=== PATIENT | female | born 1950 | race Hispanic/Latino ===

== ENCOUNTER 2018-08-09 15:30 | Inpatient (IN) | payer MEDICARE ==
[2018-08-09] MEDS ORDERED: IPRATROPIUM BROM 0.5MG/2.5ML ONE (15:46)
[2018-08-09] MEDS ORDERED: ALBUTEROL 2.5 MG/3 ML NEB SOL ONE (15:46)
[2018-08-09 16:44] LABS: Absolute Monocytes 0.6 K/uL (0.1-1.3); Absolute Neutrophil 4.2 K/uL (1.8-8.0); Basophils % 1.2 % (0-1.3); Hematocrit 33.5 % (36.0-45.0); Lymphocytes % 27.9 % (15.3-44.8); MCH 31.7 pg (27.0-35.0); MCV 89.7 fL (80-100); MPV 8.3 fL (7.6-11.3); Monocytes % 8.8 % (3.3-12.3); RBC Red Blood Cell Count 3.73 M/uL (3.86-4.86)
[2018-08-09] MEDS ORDERED: MAGNESIUM SULFATE 1 gm IVPB 1 GM/100 ML BAG IV ONE (16:50)
[2018-08-09 17:09] LABS: Protime INR 0.92
[2018-08-09 17:20] LABS: Magnesium 2.7 mg/dL (1.8-2.4); Potassium 3.6 mmol/L (3.5-5.1); Troponin (Emerg Dept Use Only) 0.1 ng/mL (0.0-0.045)
--- NOTE | 2018-08-09 17:45 | EDPHYS ---
Physician Documentation [facility] Name: Diya Hassan Age: 68 yrs Sex: Female : 1950 Arrival Date: 08/09/2018 Time: 15:31 Bed 2 Private MD: ED Physician Kin Cassidy HPI: 08/09 15:56 This 68 yrs old Female presents to ER via Ambulatory with complaints of kb Shortness Of Breath. 15:56 The patient has shortness of breath at rest. Onset: The symptoms/episode began/occurred kb last night. Duration: The symptoms are continuous, and are steadily getting worse. The patient's shortness of breath is aggravated by exertion, is alleviated by nothing. Associated signs and symptoms: Pertinent positives: non-productive cough, Pertinent negatives: chest pain, productive cough, fever. Severity of symptoms: At their worst the symptoms were moderate in the emergency department the symptoms are unchanged. The patient has not experienced similar symptoms in the past. The patient has not recently seen a physician. Historical: - Allergies: 15:47 NKA; ph - Home Meds: 16:39 carvedilol Oral [Active]; metformin 500 mg Oral tr24 1 tab twice a day [Active]; rv - PMHx: 15:47 Diabetes - NIDDM; Hypertension; ph - PSHx: 15:47 None; ph - Immunization history:: Adult Immunizations unknown. - Social history:: Smoking status: unknown. - Ebola Screening: : Patient negative for fever greater than or equal to 101.5 degrees Fahrenheit, and additional compatible Ebola Virus Disease symptoms Patient denies exposure to infectious person Patient denies travel to an Ebola-affected area in the 21 days before illness onset. ROS: 15:56 Constitutional: Negative for fever, chills, and weight loss, ENT: Negative for injury, kb pain, and discharge, Neck: Negative for injury, pain, and swelling, Cardiovascular: Negative for chest pain, palpitations, and edema, Abdomen/GI: Negative for abdominal pain, nausea, vomiting, diarrhea, and constipation, Back: Negative for injury and pain, : Negative for injury, bleeding, discharge, and swelling, MS/Extremity: Negative for injury and deformity, Skin: Negative for injury, rash, and discoloration, Neuro: Negative for headache, weakness, numbness, tingling, and seizure. 15:56 Respiratory: Positive for cough, shortness of breath, Negative for hemoptysis, orthopnea, pleurisy, wheezing. Exam: 15:56 Constitutional: This is a well developed, well nourished patient who is awake, alert, kb and in no acute distress. Head/Face: Normocephalic, atraumatic. ENT: Nares patent. No nasal discharge, no septal abnormalities noted. Tympanic membranes are normal and external auditory canals are clear. Oropharynx with no redness, swelling, or masses, exudates, or evidence of obstruction, uvula midline. Mucous membranes moist. Neck: Trachea midline, no thyromegaly or masses palpated, and no cervical lymphadenopathy. Supple, full range of motion without nuchal rigidity, or vertebral point tenderness. No Meningismus. Chest/axilla: Normal chest wall appearance and motion. Nontender with no deformity. No lesions are appreciated. Cardiovascular: Regular rate and rhythm with a normal S1 and S2. No gallops, murmurs, or rubs. Normal PMI, no JVD. No pulse deficits. Abdomen/GI: Soft, non-tender, with normal bowel sounds. No distension or tympany. No guarding or rebound. No evidence of tenderness throughout. Back: No spinal tenderness. No costovertebral tenderness. Full range of motion. Skin: Warm, dry with normal turgor. Normal color with no rashes, no lesions, and no evidence of cellulitis. MS/ Extremity: Pulses equal, no cyanosis. Neurovascular intact. Full, normal range of motion. Neuro: Awake and alert, GCS 15, oriented to person, place, time, and situation. Cranial nerves II-XII grossly intact. Motor strength 5/5 in all extremities. Sensory grossly intact. Cerebellar exam normal. Normal gait. 15:56 Respiratory: mild respiratory distress is noted, Respirations: labored breathing, that is mild, Breath sounds: decreased breath sounds, that are moderate, are located in both bases. 16:38 Respiratory: Breath sounds: decreased breath sounds, that are mild, are located in both kb bases, receiving neb treatment. Vital Signs: 15:46 BP 178 / 94; Pulse 55; Resp 26; Temp 97.7(O); Pulse Ox 88% on R/A; Weight 75.3 kg; Pain ph 0/10; 16:00 BP 171 / 78; Pulse 53; Resp 18; Pulse Ox 96% ; rv 16:30 BP 165 / 83; Pulse 61; Resp 23; Pulse Ox 97% ; rv 17:00 BP 172 / 79; Pulse 59; Resp 20; Pulse Ox 97% on 2 lpm NC; rv 17:30 BP 115 / 88; Pulse 59; Resp 22; Pulse Ox 95% on 2 lpm NC; rv 18:00 BP 152 / 76; Pulse 57; Resp 18; Pulse Ox 97% on 2 lpm NC; rv 19:13 BP 140 / 71; Pulse 60; Resp 21; Temp 98.8(O); Pulse Ox 95% on 2 lpm NC; lp1 MDM: 15:49 Patient medically screened. kb 15:56 Data reviewed: vital signs, nurses notes. Data interpreted: Pulse oximetry: on room air kb is 88 %. Interpretation: hypoxia. 17:38 Counseling: I had a detailed discussion with the patient and/or guardian regarding: the kb historical points, exam findings, and any diagnostic results supporting the discharge/admit diagnosis, lab results, radiology results, the need for further work-up and treatment in the hospital. Physician consultation: Mary Christian MD was contacted at 17:39, regarding admission, to the telemetry unit. patient's condition, and will see patient in ED, shortly. 08/09 15:52 Order name: Basic Metabolic Panel; Complete Time: 17:21 kb 08/09 15:52 Order name: CBC with Diff; Complete Time: 17:01 kb 08/09 15:52 Order name: Magnesium; Complete Time: 17:21 kb 08/09 15:52 Order name: NT PRO-BNP; Complete Time: 17:21 kb 08/09 15:52 Order name: PT-INR; Complete Time: 17:16 kb 08/09 15:52 Order name: Troponin (emerg Dept Use Only); Complete Time: 17:21 kb 08/09 15:52 Order name: XRAY Chest (1 view); Complete Time: 17:46 kb 08/09 15:52 Order name: Blood Culture Adult (2) kb 08/09 17:38 Order name: Procalcitonin; Complete Time: 18:43 kb 08/09 17:38 Order name: Lactate; Complete Time: 18:23 kb 08/09 17:43 Order name: Flu; Complete Time: 18:56 kb 08/09 15:52 Order name: EKG; Complete Time: 15:57 kb 08/09 15:52 Order name: Cardiac monitoring; Complete Time: 16:15 kb 08/09 15:52 Order name: EKG - Nurse/Tech; Complete Time: 16:16 kb 08/09 15:52 Order name: IV Saline Lock; Complete Time: 16:03 kb 08/09 15:52 Order name: Labs collected and sent; Complete Time: 16:03 kb 08/09 15:52 Order name: O2 Per Protocol; Complete Time: 16:04 kb 08/09 15:52 Order name: O2 Sat Monitoring; Complete Time: 16:04 kb Administered Medications: 16:00 Drug: DuoNeb (3:1) (2.5 mg - 0.5 mg) 3 ml Route: Nebulizer; rv 16:54 Follow up: Response: No adverse reaction rv 16:51 Drug: Magnesium Sulfate 1 grams Route: IVPB; Infused Over: 1 hrs; Site: left rv antecubital; 18:00 Drug: Lasix 40 mg Route: IVP; Site: right antecubital; rv 18:14 Drug: Zithromax 500 mg Route: IVPB; Infused Over: 1 hrs; Site: right antecubital; rv 19:18 Follow up: IV Status: Completed infusion; IV Intake: 250ml lp1 18:15 Drug: Rocephin - (cefTRIAXone) 1 grams Route: IVPB; Infused Over: 30 mins; Site: right rv antecubital; Disposition: 18:57 Co-signature as Attending Physician, Kin Cassidy MD available for consultation at ps1 all times . Disposition: 08/09/18 17:44 Hospitalization ordered by Mary Christian for Inpatient Admission. Preliminary diagnosis are Pneumonia, unspecified organism, Dyspnea - hypoxia, Fluid overload. - Bed requested for Telemetry/MedSurg (Inpatient). - Status is Inpatient Admission. lp1 - Condition is Fair. - Problem is new. - Symptoms have improved. UTI on Admission? No Signatures: Dispatcher [employer] EDYelena Cummins FNP-C FNP-Carlene Philippe Laura, RN RN lp1 Hui Barber RN RN Kin Cassidy MD MD [facility] Capo, Jax, RN RN rv Corrections: (The following items were deleted from the chart) 17:46 17:44 Hospitalization Ordered by Mary Christian MD for Inpatient Admission. Preliminary kb diagnosis is Pneumonia, unspecified organism; Dyspnea; Fluid overload. Bed requested for Telemetry/MedSurg (Inpatient). Status is Inpatient Admission. Condition is Fair. Problem is new. Symptoms have improved. UTI on Admission? No. kb 18:47 17:46 08/09/2018 17:44 Hospitalization Ordered by Mary Christian MD for Inpatient bd Admission. Preliminary diagnosis is Pneumonia, unspecified organism; Dyspnea - hypoxia; Fluid overload. Bed requested for Telemetry/MedSurg (Inpatient). Status is Inpatient Admission. Condition is Fair. Problem is new. Symptoms have improved. UTI on Admission? No. kb 20:21 18:47 08/09/2018 17:44 Hospitalization Ordered by Mary Christian MD for Inpatient lp1 Admission. Preliminary diagnosis is Pneumonia, unspecified organism; Dyspnea - hypoxia; Fluid overload. Bed requested for Telemetry/MedSurg (Inpatient). Status is Inpatient Admission. Condition is Fair. Problem is new. Symptoms have improved. UTI on Admission? No. bd
--- NOTE | 2018-08-09 17:45 | ER ---
Nurse's Notes [facility] Name: Diya Hassan Age: 68 yrs Sex: Female : 1950 Arrival Date: 08/09/2018 Time: 15:31 Bed 2 Private MD: Diagnosis: Pneumonia, unspecified organism;Dyspnea-hypoxia;Fluid overload Presentation: 08/09 15:44 Presenting complaint: Patient states: Reports SOB that began yesterday, also reports ph cough that began yesterday, denies fever or chest pain, Spo2 88% in triage, pt denies hx of COPD, taken to trauma 2 and placed on NC at 2L. Transition of care: patient was not received from another setting of care. Onset of symptoms was August 09, 2018. Risk Assessment: Do you want to hurt yourself or someone else? Patient reports no desire to harm self or others. Care prior to arrival: None. 15:44 Method Of Arrival: Ambulatory ph 15:44 Acuity: RJ 2 ph 16:05 Initial Sepsis Screen: Does the patient meet any 2 criteria? No. Patient's initial rv sepsis screen is negative. Does the patient have a suspected source of infection? No. Patient's initial sepsis screen is negative. Triage Assessment: 16:37 General: Appears in no apparent distress. comfortable, Behavior is calm, cooperative. rv Respiratory: Reports shortness of breath since LAST NIGHT Onset: The symptoms/episode began/occurred yesterday, the patient has moderate shortness of breath. Historical: - Allergies: 15:47 NKA; ph - Home Meds: 16:39 carvedilol Oral [Active]; metformin 500 mg Oral tr24 1 tab twice a day [Active]; rv - PMHx: 15:47 Diabetes - NIDDM; Hypertension; ph - PSHx: 15:47 None; ph - Immunization history:: Adult Immunizations unknown. - Social history:: Smoking status: unknown. - Ebola Screening: : Patient negative for fever greater than or equal to 101.5 degrees Fahrenheit, and additional compatible Ebola Virus Disease symptoms Patient denies exposure to infectious person Patient denies travel to an Ebola-affected area in the 21 days before illness onset. Screenin:54 Abuse screen: Denies threats or abuse. Denies injuries from another. Nutritional rv screening: No deficits noted. Tuberculosis screening: No symptoms or risk factors identified. Fall Risk None identified. Assessment: 15:52 General: Appears in no apparent distress. comfortable, Behavior is calm, cooperative. rv Pain: Denies pain. Neuro: Level of Consciousness is awake, alert, obeys commands, Oriented to person, place, time, situation. Cardiovascular: Capillary refill < 3 seconds Rhythm is. GI: No signs and/or symptoms were reported involving the gastrointestinal system. : No signs and/or symptoms were reported regarding the genitourinary system. EENT: No signs and/or symptoms were reported regarding the EENT system. Derm: Skin is intact. Musculoskeletal: No signs and/or symptoms reported regarding the musculoskeletal system. 16:04 Respiratory: Airway is patent Respiratory effort is labored, Breath sounds with wheezes rv bilaterally. 16:46 Reassessment: Patient appears in no apparent distress at this time. rv 19:17 Reassessment: Patient aware of admission. Neuro: Level of Consciousness is awake, lp1 alert, obeys commands. Respiratory: Respiratory effort is even, labored, Respiratory pattern is regular, Breath sounds with wheezes bilaterally. Derm: Skin is pink, warm \T\ dry. Vital Signs: 15:46 BP 178 / 94; Pulse 55; Resp 26; Temp 97.7(O); Pulse Ox 88% on R/A; Weight 75.3 kg; Pain ph 0/10; 16:00 BP 171 / 78; Pulse 53; Resp 18; Pulse Ox 96% ; rv 16:30 BP 165 / 83; Pulse 61; Resp 23; Pulse Ox 97% ; rv 17:00 BP 172 / 79; Pulse 59; Resp 20; Pulse Ox 97% on 2 lpm NC; rv 17:30 BP 115 / 88; Pulse 59; Resp 22; Pulse Ox 95% on 2 lpm NC; rv 18:00 BP 152 / 76; Pulse 57; Resp 18; Pulse Ox 97% on 2 lpm NC; rv 19:13 BP 140 / 71; Pulse 60; Resp 21; Temp 98.8(O); Pulse Ox 95% on 2 lpm NC; lp1 ED Course: 15:31 Patient arrived in ED. as 15:46 Triage completed. ph 15:47 Arm band placed on Patient placed in an exam room, on a stretcher, on oxygen, on ph monitoring coordinator, on pulse oximetry. 15:49 Yelena Wilkerson FNP-C is [facility]. kb 15:49 Kin Cassidy MD is Attending Physician. kb 15:54 Initial lab(s) drawn, by me, sent to lab. Inserted saline lock: 20 gauge in right rv antecubital area, using aseptic technique. Blood collected. 16:06 Patient has correct armband on for positive identification. Placed in gown. Bed in low rv position. Call light in reach. Side rails up X 1. Adult w/ patient. nuclear monitoring technician on. Pulse ox on. NIBP on. 16:12 EKG done, by radiation therapy technician. reviewed by Yelena MERCADO. sm3 16:43 XRAY Chest (1 view) In Process Unspecified. EDMS 17:44 Mary Christian MD is Hospitalizing Provider. kb 19:12 Basilia Rowley RN is Primary Nurse. lp1 19:17 No provider procedures requiring assistance completed. Patient admitted, IV remains in lp1 place. Administered Medications: 16:00 Drug: DuoNeb (3:1) (2.5 mg - 0.5 mg) 3 ml Route: Nebulizer; rv 16:54 Follow up: Response: No adverse reaction rv 16:51 Drug: Magnesium Sulfate 1 grams Route: IVPB; Infused Over: 1 hrs; Site: left rv antecubital; 18:00 Drug: Lasix 40 mg Route: IVP; Site: right antecubital; rv 18:14 Drug: Zithromax 500 mg Route: IVPB; Infused Over: 1 hrs; Site: right antecubital; rv 19:18 Follow up: IV Status: Completed infusion; IV Intake: 250ml lp1 18:15 Drug: Rocephin - (cefTRIAXone) 1 grams Route: IVPB; Infused Over: 30 mins; Site: right rv antecubital; Intake: 19:18 IV: 250ml; Total: 250ml. lp1 Outcome: 17:44 Decision to Hospitalize by Provider. kb 19:18 Condition: stable lp1 19:18 Instructed on the need for admit. 19:45 Admitted to Med/surg accompanied by nurse, via wheelchair, room 205, with oxygen, with lp1 chart, Report called to Sandrine Rod RN 20:21 Patient left the ED. lp1 Signatures: Dispatcher [employer] EDMS Yelena Wilkerson FNP-C FNP-Ckb Dafne Gonzales Laura, RN RN lp1 Hui Barebr RN RN Minerva Sinha 3 Jax Scanlon RN RN rv
--- NOTE | 2018-08-09 17:45 | RAD REPORT ---
EXAM DESCRIPTION: RAD - Chest Single View - 08/09/2018 5:34 pm CLINICAL HISTORY: Cough;Dyspnea Chest pain. COMPARISON: CHEST PA AND LAT 2 VIEW dated 04/09/2010; CHEST PA AND LAT 2 VIEW dated 01/02/2008; CHEST P A AND LAT 2 VIEW dated 02/26/2004 FINDINGS: Portable technique limits examination quality. Ill-defined opacity is present in the right base with small pleural effusion, most likely representin g pneumonia. The heart is mildly to moderately enlarged. No displaced fractures. IMPRESSION: Right lower lobe pneumonia.
[2018-08-09] MEDS ORDERED: FUROSEMIDE 40 MG/4 ML VIAL ONE (18:04)
[2018-08-09] MEDS ORDERED: AZITHROMYCIN 500 MG/250 ML BAG ONE (18:05)
[2018-08-09] MEDS ORDERED: CEFTRIAXONE/SWI 1gm 1 GM/10 ML SYR ONE (18:05)
[2018-08-09] MEDS ORDERED: ONDANSETRON 4 MG/2 ML VIAL IV PRN (18:13)
[2018-08-09] MEDS ORDERED: ENOXAPARIN 30 MG/0.3 ML SQ SCH (18:30)
[2018-08-09] MEDS ORDERED: CEFTRIAXONE/SWI 1gm 1 GM/10 ML SYR IVP SCH (21:00)
[2018-08-09] MEDS: IPRATROPIUM BROM 0.5MG/2.5ML NEB PRN (22:00)
[2018-08-09] MEDS: ALBUTEROL 2.5 MG/3 ML NEB SOL NEB PRN (22:00)
[2018-08-09] MEDS: INSULIN -REGULAR HUMAN 50 UNIT/0.5 ML ML SQ SCH (23:24)
[2018-08-09] MEDS: ENOXAPARIN 80 MG/0.8 ML SQ SCH (23:25)
[2018-08-10 00:21] LABS: Urine Appearance CLEAR; Urine Bilirubin NEGATIVE (NEG); Urine Blood 1+ (NEG); Urine Color YELLOW; Urine Glucose TRACE (NEG); Urine Protein 3+ (NEG); Urine Urobilinogen 0.2 mg/dL (0.2-1.0)
[2018-08-10 00:53] LABS: Urine Microscopic Reflex ORDER UMIC
[2018-08-10 01:08] LABS: Urine Bacteria <20 /HPF (<20); Urine Culture Reflex Order NOT NEEDED; Urine RBC <5 /HPF (NONE SEEN)
--- NOTE | 2018-08-10 04:24 | HP ---
Date of Admission: 08/09/2018 Primary Care Physician: Joaquín Watson D.O. Chief Complaint: Shortness of breath. Code Status: Full. History Of Present Illness: The patient is a 68-year-old female with past medical history of hyperte nsion, diabetes, comes in with shortness of breath since last night. The patient reports wak ing her up as she was found to be gasping for air. The patient does report some shortness of breath, some chills, subjective fever. No cough or congestion. Denies any ill contacts. The patient came into the ER for further evaluation. Upon arrival, white count was normal. The patient's creatinine was elevated at 1.8. Troponin was 0.1. The patient denies any recent long car drive or plane drive. The patient's symptoms are constant, moderate, progressively worsening. The chest x-ray showed rig ht lower lobe pneumonia. The patient was then given breathing treatment, Lasix, and antibiotics and referred for admission. The patient was hypoxic at 88% in the ER. When seen, she was awake, alert, oriented x3, in some mild respiratory distress. Past Medical History: Hypertension, diabetes, obesity. Past Surgical History: Cholecystectomy, cataract surgery on the left. Family History: Father had cancer. Mother had stroke. Medications: List reviewed. Allergies: NO KNOWN DRUG ALLERGIES. Review of Systems: An 11-point system reviewed, negative except as per HPI. Physical Examination: Vital Signs: Blood pressure 178/94, pulse 55, respirations 26, temperature 97.7, O2 88% on room air. General: Awake, alert, oriented x3. Some mild respiratory distress. Ill-appearing female. HEENT: Normocephalic, atraumatic. PERRLA. EOMI. Moist mucous membranes. Oropharynx is clear. Co njunctivae anicteric. Neck: Supple. No JVD. Trachea midline. CV: S1, S2. No murmurs. Peripheral pulses present. Respiratory: Decreased breath sounds at the right base well heard. No wheezing or crackles. The pa tient is tachypneic. Use of accessory muscles present. Gastrointestinal: Abdomen is soft, nontender, nondistended. Positive bowel sounds. No guarding or rigidity. Extremities: No clubbing, cyanosis, or edema. No calf tenderness. Neuro: Cranial nerves 2 through 12 are intact grossly. No focal neurological deficit. Speech is no rmal. Strength is symmetric in bilateral upper and lower extremities. Skin: No rashes. Normal skin turgor. Psych: Mood is okay. Affect is full. Insight and judgment are good. Laboratory Data: Sodium 142, potassium 3.6, chloride 111, CO2 21, BUN 30, creatinine 1.8, glucose 10 9, calcium 8.4, magnesium 2.7. Troponin 0.1. BNP 5561. Lactate and procalcitonin pending. INR 0.9 2. WBC is 7.3, H and H 11.8 and 33.5, platelets 243. Chest x-ray; right lower lobe pneumonia, small pleural effusion on the right. Assessment And Plan: A 68-year-old female with: 1.Acute respiratory distress with hypoxia. 2.Right lower lobe pneumonia. We will start on IV antibiotics and obtain blood cultures and sputum cultures. Check influenza screen. Of note, the patient has been on nitrofurantoin prophylactically by her OB for hysterectomy upcoming. White count is currently normal, but the patient does have clin ical symptoms. 3.Right small pleural effusion. The patient did receive Lasix. We will monitor I's and O's. 4.Obesity. 5.Diabetes mellitus type 2, non-insulin requiring with hyperglycemia. We will start on sliding scal e insulin and continue Accu-Cheks. 6.Essential hypertension, uncontrolled. Continue home medications. 7.Elevated troponin level, likely secondary to hypoxia. 8.Fkvcl-zn-[id number] kidney injury. We will continue with close monitoring. Avoid nephrotoxins and N SAIDs. We will give IV fluids with gentle IV fluid hydration. Plan: Admit the patient to Med-Surg, place as inpatient. Start on Lovenox. Obtain V/Q scan. Unabl e to do CT angio to rule out PE due to her elevated creatinine. Length of stay greater than 2 midnig hts. /MILLY Voice ID: [id number]
[2018-08-10 05:50] LABS: Absolute Lymphocytes (CBC) 1.4 K/uL (0.7-4.9); Absolute Monocytes 0.5 K/uL (0.1-1.3); Eosinophils % 2.4 % (0-4.4); Lymphocytes % 23.3 % (15.3-44.8); MCH 31.9 pg (27.0-35.0); MCV 89.7 fL (80-100); MPV 7.9 fL (7.6-11.3); Monocytes % 7.8 % (3.3-12.3); RBC Red Blood Cell Count 3.23 M/uL (3.86-4.86)
--- NOTE | 2018-08-10 06:05 | EKG ---
Test Date: 2018-08-09 Test Time: 15:44:24 Target Man: AUGUSTUS MEASUREMENT RESULTS: Intervals: Rate: 54 [place]: 134 QRSD: 88 QT: 470 QTc: 445 [place]: P: [place]: 134 QRS: 40 T: 9 INTERPRETIVE STATEMENTS: Sinus bradycardia Nonspecific ST and T wave abnormality Abnormal ECG Compared to ECG 11/30/2016 14:09:46 ST (T wave) deviation now present Left ventricular hypertrophy no longer present Early repolarization no longer present Myocardial infarct finding no longer present Electronically Signed On 08-10-18 06:04:02 [employer] by Hector Snow
[2018-08-10 06:07] LABS: Albumin 2.5 g/dL (3.4-5.0); Bilirubin Total 0.3 mg/dL (0.2-1.0); Potassium 3.2 mmol/L (3.5-5.1); Protein, Total 6.1 g/dL (6.4-8.2)
[2018-08-10] MEDS: INSULIN -REGULAR HUMAN 50 UNIT/0.5 ML ML SQ SCH ×4 (07:30→20:35)
[2018-08-10] MEDS: GLIMEPIRIDE 2 MG TABLET PO SCH (08:47)
[2018-08-10] MEDS: METOPROLOL TAR 50 MG TAB PO SCH ×2 (08:47→20:33)
[2018-08-10] MEDS: AMLODIPINE 10 MG TAB PO SCH (08:48)
[2018-08-10] MEDS: CEFTRIAXONE/SWI 1gm 1 GM/10 ML SYR IVP SCH ×2 (08:49→20:33)
[2018-08-10] MEDS: ENOXAPARIN 80 MG/0.8 ML SQ SCH (08:49)
--- NOTE | 2018-08-10 08:53 | RAD REPORT ---
EXAM DESCRIPTION: NM - Vent Perfusion VQ Scan - 08/10/2018 6:34 am CLINICAL HISTORY: SOB, hypoxia, r/out PE COMPARISON: Chest Single View dated 08/09/2018 TECHNIQUE: 18.9mCi Xe-133 gas inhaled and 7.5mCi Tc-MAA IV. Planar ventilation scan was performed in posterior projection after Xe-133 gas inhalation (wash-in, e quilibrium, and wash-out phases) followed by perfusion scan with Tc-MAA IV in multiple projections. Examination is correlated with recent chest radiograph. FINDINGS: Normal ventilation with appropriate wash-out and no significant air-trapping. No mismatched segmental perfusion defect. Linear obliquely oriented defect involving the right lung i s likely related to pleural fluid in the fissure. IMPRESSION: Low probability of acute pulmonary embolism.
[2018-08-10] MEDS: MEMANTINE HCL 28 MG PO SCH (08:57)
[2018-08-10 10:00] LABS: Arterial Blood Carboxyhemoglob 1.6 % (0-1.5); Blood O2 Saturation 94.1 % (92-98.5)
[2018-08-10] MEDS: AZITHROMYCIN IV 500 MG in NA CHLORIDE 0.9% 250 ML IVPB SCH (10:11)
[2018-08-10] MEDS ORDERED: FUROSEMIDE 40 MG/4 ML VIAL IV ONE (15:00)
[2018-08-10] MEDS ORDERED: POTASSIUM CL SA 10 MEQ TAB PO ONE (15:00)
[2018-08-10] MEDS: ENOXAPARIN 30 MG/0.3 ML SQ SCH (17:00)
[2018-08-10] MEDS: IPRATROPIUM BROM 0.5MG/2.5ML NEB PRN (17:15)
[2018-08-10] MEDS: ALBUTEROL 2.5 MG/3 ML NEB SOL NEB PRN (17:15)
[2018-08-10] MEDS: HYDRALAZINE HCL 20 MG/ML VIAL IV PRN (17:41)
--- NOTE | 2018-08-10 19:12 | PN ---
Date of Progress Note: 08/10/2018 Subjective: The patient is seen and examined. Chart reviewed, and case discussed with RN. The lala ent states she feels slightly better, however, still having some chills. No fevers overnight. The p atient is still requiring supplemental oxygen. Review of Systems: Negative except as above. Medications: List reviewed. Physical Examination: Vital Signs: Temperature 97.8, heart rate 54, blood pressure 164/69, respirations 18, O2 of 94% on 3 L via nasal cannula. General: Awake, alert, oriented x3. She is in mild distress. An elderly female, ill-appearing, obe se. CV: S1, S2. Regular rate and rhythm. No murmurs. Peripheral pulses present. Respiratory: Diminished breath sounds at the bases, right worse than left. No wheezing. Gastrointestinal: Abdomen is soft, nontender, nondistended. Positive bowel sounds. Extremities: No clubbing, cyanosis, or edema. Neurologic: Nonfocal. Laboratory Data: Sodium 142, potassium 3.2, chloride 111, CO2 of 22, BUN 28, creatinine 1.7, glucose 101, calcium 8.2. WBC 6.1, H and H 10.3 and 29, platelets 213, neutrophils 65%. ABG; pH 7.35, pCO2 of 34.7, pO2 of 69, bicarb 18. Influenza screen is negative. Blood cultures pending. Lung V/Q sca n shows low probability of acute pulmonary embolism. Assessment: A 68-year-old female with: 1.Acute respiratory distress with hypoxia, improving, likely secondary to pneumonia. 2.Right lower lobe pneumonia. Continue with IV antibiotics. Follow up on cultures. 3.Small right pleural effusion. Continue to monitor chest x-ray. The patient is still on supplemen alina oxygen at 3 L. We will give a dose of Lasix. 4.Obesity, BMI 32. 5.Diabetes mellitus type 2, non-insulin requiring, with hyperglycemia. We will continue sliding sca le insulin and Accu-Cheks. 6.Essential hypertension, not well controlled. We will add p.r.n. medications. Resume home dose as appropriate. 7.Elevated troponin level, secondary to hypoxia. No chest pain. 8.Unqgr-[id number]-mcdqbtk kidney injury stage 3. Creatinine is improving. We will continue to monitor. A void NSAIDs. 9.Gastrointestinal and deep venous thrombosis prophylaxis addressed. Plan: Continue antibiotics. Follow up on cultures. Likely discharge in the next 24 to 48 hours onc e clinically improved. We will repeat chest x-ray in a.mShiv DIAZ/MLILY Voice ID: [id number] Report ID: [id number]
[2018-08-10] MEDS: ATORVASTATIN 20 MG TAB PO SCH (20:34)
[2018-08-10] MEDS: ACETAMINOPHEN 500 MG TAB PO PRN (20:34)
[2018-08-11 06:07] LABS: Absolute Lymphocytes (CBC) 2.3 K/uL (0.7-4.9); Absolute Monocytes 0.5 K/uL (0.1-1.3); Absolute Neutrophil 3.5 K/uL (1.8-8.0); Basophils % 1.3 % (0-1.3); Eosinophils % 5.4 % (0-4.4); Hematocrit 30.5 % (36.0-45.0); Lymphocytes % 33.5 % (15.3-44.8); MCH 32.3 pg (27.0-35.0); MCV 90.2 fL (80-100); MPV 7.6 fL (7.6-11.3); Monocytes % 7.4 % (3.3-12.3); RBC Red Blood Cell Count 3.39 M/uL (3.86-4.86)
[2018-08-11 06:14] LABS: Albumin 2.6 g/dL (3.4-5.0); Bilirubin Total 0.3 mg/dL (0.2-1.0); Potassium 3.5 mmol/L (3.5-5.1); Protein, Total 6.6 g/dL (6.4-8.2)
[2018-08-11] MEDS: INSULIN -REGULAR HUMAN 50 UNIT/0.5 ML ML SQ SCH ×4 (07:30→20:35)
[2018-08-11] MEDS: METOPROLOL TAR 50 MG TAB PO SCH ×2 (08:49→20:34)
[2018-08-11] MEDS: GLIMEPIRIDE 2 MG TABLET PO SCH (08:50)
[2018-08-11] MEDS: AMLODIPINE 10 MG TAB PO SCH (08:50)
[2018-08-11] MEDS: CEFTRIAXONE/SWI 1gm 1 GM/10 ML SYR IVP SCH ×2 (08:51→20:35)
[2018-08-11] MEDS: MEMANTINE HCL 28 MG PO SCH (08:58)
[2018-08-11] MEDS: AZITHROMYCIN IV 500 MG in NA CHLORIDE 0.9% 250 ML IVPB SCH (09:16)
--- NOTE | 2018-08-11 15:51 | RAD REPORT ---
EXAM DESCRIPTION: Jade Nieves And Su (2 Views)08/11/2018 6:55 am CLINICAL HISTORY: Cough COMPARISON: August 09, 2018 FINDINGS: Right lower lobe consolidation. A small to moderate loculated right pleural effusion suspe cted. The heart is mildly enlarged
--- NOTE | 2018-08-11 16:28 | PN ---
Date of Progress Note: 08/11/2018 Subjective: The patient is seen and examined. Chart reviewed, and case discussed with RN. The lala ent states that she is feeling better. Still short of breath however, and requiring supplemental oxy gen. Review of Systems: Negative except as above. Medications: List reviewed. Physical Examination: Vital Signs: Temperature 98.5, heart rate 55, blood pressure 187/81, respirations 17, O2 of 94% on 2 L via nasal cannula. General: Awake, alert, oriented x3. Some mild respiratory distress. An ill-appearing elderly femal e, obese. CV: S1, S2. Sinus bradycardia. No murmurs. Respiratory: Diminished breath sounds. Moving air well, improved from previous. No wheezing or str idor. Gastrointestinal: Abdomen is soft, nontender, nondistended. Positive bowel sounds. Extremities: No clubbing, cyanosis, or edema. Neurologic: Nonfocal. Laboratory Data: Sodium 141, potassium 3.5, chloride 110, CO2 of 23, BUN 26, creatinine 1.7, glucose 87, calcium 8.3, albumin 2.6. WBC 6.7, H and H 10.9 and 30.5, platelets 245, neutrophils 52%. Bloo d cultures, no growth to date. Repeat chest x-ray, no official report, however, did show some improv ement in the right base. Assessment: A 68-year-old female with: 1.Acute respiratory distress with hypoxia, improving. The patient is now down to 2 L. likely secon madalyn to pneumonia. We will continue to wean off oxygen. Check room air saturation. 2.Right lower lobe pneumonia. Chest x-ray shows some mild improvement, however, we will follow up o n official report. We will continue antibiotics. Cultures, no growth to date. 3.Small right pleural effusion, improved. 4.Obesity, BMI 32. 5.Diabetes mellitus type 2, non-insulin requiring, with hyperglycemia. Continue sliding scale insul in and Accu-Cheks. 6.Essential hypertension, not well controlled. P.r.n. medications added. We will continue to monit or. 7.Elevated troponin level secondary to hypoxia. No complaints of chest pain. Doubt acute coronary syndrome. 8.Wzubp-gb-gdofemu kidney injury stage 3. Creatinine is stable from previous. We will continue to monitor. Avoid NSAIDs. 9.Gastrointestinal and deep venous thrombosis prophylaxis addressed. Plan: Discontinue once weaned off oxygen. /MILLY Voice ID: [id number] Report ID: [id number]
[2018-08-11] MEDS: ALBUTEROL 2.5 MG/3 ML NEB SOL NEB PRN (17:17)
[2018-08-11] MEDS: IPRATROPIUM BROM 0.5MG/2.5ML NEB PRN (17:17)
[2018-08-11] MEDS: ENOXAPARIN 30 MG/0.3 ML SQ SCH (17:21)
[2018-08-11] MEDS: FUROSEMIDE 40 MG/4 ML VIAL IV SCH (17:21)
[2018-08-11] MEDS: ATORVASTATIN 20 MG TAB PO SCH (20:34)
[2018-08-12 05:07] LABS: Absolute Monocytes 0.5 K/uL (0.1-1.3); Absolute Neutrophil 3.1 K/uL (1.8-8.0); Basophils % 1.5 % (0-1.3); Eosinophils % 6.4 % (0-4.4); Hematocrit 28.5 % (36.0-45.0); Lymphocytes % 33.3 % (15.3-44.8); MCH 31.5 pg (27.0-35.0); MCV 90.5 fL (80-100); MPV 7.8 fL (7.6-11.3); Monocytes % 7.8 % (3.3-12.3); RBC Red Blood Cell Count 3.15 M/uL (3.86-4.86)
[2018-08-12] MEDS: FUROSEMIDE 40 MG/4 ML VIAL IV SCH ×2 (05:17→18:00)
[2018-08-12 05:21] LABS: Albumin 2.4 g/dL (3.4-5.0); Bilirubin Total 0.2 mg/dL (0.2-1.0); Potassium 3.3 mmol/L (3.5-5.1)
[2018-08-12] MEDS: INSULIN -REGULAR HUMAN 50 UNIT/0.5 ML ML SQ SCH ×4 (07:30→20:44)
[2018-08-12] MEDS: MEMANTINE HCL 28 MG PO SCH (09:00)
[2018-08-12] MEDS: METOPROLOL TAR 50 MG TAB PO SCH ×2 (09:47→20:44)
[2018-08-12] MEDS: GLIMEPIRIDE 2 MG TABLET PO SCH (09:47)
[2018-08-12] MEDS: AZITHROMYCIN IV 500 MG in NA CHLORIDE 0.9% 250 ML IVPB SCH (09:49)
[2018-08-12] MEDS: AMLODIPINE 10 MG TAB PO SCH (09:49)
[2018-08-12] MEDS: CEFTRIAXONE/SWI 1gm 1 GM/10 ML SYR IVP SCH ×2 (09:49→20:44)
--- NOTE | 2018-08-12 11:55 | RAD REPORT ---
EXAM DESCRIPTION: CT - Thorax Wo Con - 08/12/2018 11:40 am CLINICAL HISTORY: cough COMPARISON: 08/11 xray TECHNIQUE: Computed axial tomography of the chest was obtained. Contrast was not requested. All CT scans are performed using dose optimization technique as appropriate and may include automated exposure control or mA/KV adjustment according to patient size. FINDINGS: The evaluation of mediastinum, les and vessels is limited secondary to lack of IV contras t administration. 6 cm right lower lobe consolidation Small to moderate right pleural effusion without loculation. Small left pleural effusion Mild left lower lobe atelectasis Trace pericardial effusion is suspected No mediastinal or hilar lymphadenopathy IMPRESSION: Right lower lobe pneumonia. This should be followed until it is clear to help exclude a postobstructive process/ underlying mass Small to moderate right pleural effusion without loculation
--- NOTE | 2018-08-12 13:09 | P.CNS ---
Date of Consult: 08/12/18 Reason for Consult: For pneumonia Chief Complaint: Chest pain History of Present Illness: Patient is 68 years of age a pleasant lady no significant cardiopulmonary history admitted with sudden onset of chest pain described as lower chest dial pain no fever chills or cough feeling better today was found to have right lower lobe pneumonia with bilateral pleural effusions patient does not smoke no cardiac history diabetic hypertensive patient's blood pressure is elevated Allergies No Known Allergies Allergy (Verified 12/01/16 01:29) Home Medications: Amlodipine [Norvasc] 10 mg PO DAILY 08/09/18 Atorvastatin Calcium [Lipitor] 40 mg PO BEDTIME 08/09/18 Glimepiride [Amaryl] 2 mg PO DAILY 08/09/18 Memantine HCl [Memantine HCl ER] 28 mg PO DAILY 08/09/18 Metoprolol Tartrate [Lopressor] 50 mg PO BID 08/09/18 Nitrofurantoin Monohyd/M-Cryst [Nitrofurantoin Merrick-Mcr 100 mg] 100 mg PO DAILY 08/09/18 - Past Medical/Surgical History Diabetic: Yes -: HTN -: NIDDM -: HLD -: CATERINA - Family History Father Medical History: Cancer Mother Medical History: Stroke - Social History Smoking Status: Unknown if ever smoked Alcohol use: Yes CD- Drugs: No Caffeine use: Yes Place of Residence: Home Review of Systems 10-point ROS is otherwise unremarkable Physical Examination Temp Pulse Resp BP Pulse Ox 97.8 F 56 18 197/80 H 95 08/12/18 08:00 08/12/18 09:47 08/12/18 08:00 08/12/18 09:47 08/12/18 08:00 General: Alert, Oriented x3, Cachectic HEENT: Other Respiratory: Crackles/rales (Fine crackles on the right side) Cardiovascular: Regular rate/rhythm, Normal S1 S2, Edema (Mild 1+ edema) Gastrointestinal: Normal bowel sounds, Soft and benign Musculoskeletal: No clubbing, No swelling - Problems (1) Pneumonia Current Visit: Yes Status: Acute Plan: Patient is 68 years of age admitted with a right lower lobe consolidation bilateral pleural effusions right greater than the left mild edema of lower extremities no prior history of cardiopulmonary problems probably the edema is from her amlodipine patient has renal insufficiency with some protein urea patient's blood cultures and negative ordered ultrasound of the kidneys she will need a Nephrology follow-up patient is mildly anemic consistent with a chronic renal insufficiency possible discharge home tomorrow on low-dose Levaquin 250 mg daily for 7 days follow-up with me in 2 weeks echocardiogram has been ordered she probably benefit for some Lasix at home and fluid restriction patient's blood pressure is elevated pro calcitonin level is normal
[2018-08-12] MEDS: HYDRALAZINE HCL 20 MG/ML VIAL IV PRN (13:29)
--- NOTE | 2018-08-12 14:16 | RAD REPORT ---
EXAM DESCRIPTION: US - Renal Ultrasound-Complete - 08/12/2018 2:10 pm CLINICAL HISTORY: Diagnosis renal failure Flank pain, renal failure COMPARISON: ABDOMINAL EXAM LIMITED dated 03/30/2010 FINDINGS: Both kidneys are normal in size, shape and echotexture. The right kidney measures 10.6 x 5.5 x 5.4 cm. 6 mm benign cortical cyst is present. No hydronephrosi s, focal mass or perinephric fluid. The left kidney measures 11.0 x 5.6 x 5.0 cm. No hydronephrosis, focal mass or perinephric fluid. The urinary bladder is incompletely distended without gross abnormality seen. IMPRESSION: Unremarkable renal sonogram.
--- NOTE | 2018-08-12 15:08 | ECHO ---
HEIGHT: 5 ft 1 in WEIGHT: 171 lb 0 oz DATE OF STUDY: 08/12/[address]: Mary Christian MD 2-DIMENSIONAL: YES M.MODE: YES DOPPLER: YES COLOR FLOW: YES TDS: PORTABLE: DEFINITY: BUBBLE STUDY: DIAGNOSIS: HYPOXIA, POSSIBLE CONGESTIVE HEART FAILURE, PLEURAL, EFFUSION. CARDIAC HISTORY: CATHERIZATION: NO SURGERY: NO PROSTHETIC VALVE: NO PACEMAKER: NO MEASUREMENTS (cm) DIASTOLIC (NORMALS) SYSTOLIC (NORMALS) IVSd 1.1 (0.6-1.2) LA Diam 4.4 (1.9-4.0) LVEF 62% LVIDd 4.9 (3.5-5.7) LVIDs 3.2 (2.0-3.5) %FS 33% LVPWd 1.0 (0.6-1.2) Ao Diam 3.1 (2.0-3.7) 2 DIMENSIONAL ASSESSMENT: RIGHT ATRIUM: NORMAL LEFT ATRIUM: DILATED RIGHT VENTRICLE: NORMAL LEFT VENTRICLE: NORMAL TRICUSPID VALVE: NORMAL MITRAL VALVE: NORMAL PULMONIC VALVE: NORMAL AORTIC VALVE: MILD SCLEROSIS PERICARDIAL EFFUSION: NONE AORTIC ROOT: NORMAL LEFT VENTRICULAR WALL MOTION: NORMAL DOPPLER/COLOR FLOW: MILD AORTIC REGURGITATION, MITRAL REGURGITATION, AND TRICUSPID REGURGITATION. NO AORTIC STENOSIS. ESTIMATED RIGHT VENTRICULAR SYSTOLIC PRESSURE 40 mmHg. MILD PULMONARY HYPERTENSION. COMMENTS: NORMAL LEFT VENTRICULAR EJECTION FRACTION. DILATED LEFT ATRIUM. AORTIC SCLEROSIS WITH NO AORTIC STENOSIS. MILD AORTIC REGURGITATION. MITRAL REGURGITATION AND TRICUSPID REGURGITATION. MILD PULMONARY HYPERTENSION. TECHNOLOGIST: EDUARD WRIGHT
[2018-08-12] MEDS: ENOXAPARIN 30 MG/0.3 ML SQ SCH (17:00)
[2018-08-12] MEDS: ACETAMINOPHEN 500 MG TAB PO PRN (20:42)
[2018-08-12] MEDS: ATORVASTATIN 20 MG TAB PO SCH (20:43)
--- NOTE | 2018-08-12 21:07 | PN ---
Date of Progress Note: 08/12/2018 Subjective: The patient was seen and examined. Chart reviewed and case discussed with RN and Dr. Dorantes. The patient is feeling better. States her shortness of breath has improved. Able to ambulate short distances; however, still requiring supplemental oxygen. The patient did become hypoxic on room air. Code status is full. Medications: List reviewed. Physical Examination: Vital Signs: Temperature 98.4, heart rate 52, blood pressure 171/75, respirations 18, O2 of 95% on 2 L via nasal cannula. General: Awake, alert, oriented x3, in some mild distress, elderly female, ill- appearing, obese. CV: S1, S2. Peripheral pulses present. Regular rate and rhythm. Respiratory: Diminished breath sounds at the bases. No wheezing. No stridor. No use of accessory muscles. Otherwise, moving air well in the apices. Gastrointestinal: Abdomen is soft, nontender, nondistended. Positive bowel sounds. No guarding or rigidity. Extremities: No clubbing or cyanosis. The patient does have some pedal edema. Neurologic: Nonfocal. Laboratory Data: Sodium 141, potassium 3.3, chloride 109, CO2 of 22, BUN 27, creatinine 1.6, glucose 80, calcium 8.4, and albumin 2.4. WBC 6, H and H 9.9 and 28.5, and platelets 206. Echocardiogram shows EF of 62%. Dilated left atrium. Aortic sclerosis with no aortic stenosis. Mild pulmonary hypertension. CT scan of the chest personally reviewed, shows right lower lobe pneumonia. Yxmm-gp-kqskjcxw pleural effusion without loculation. Renal ultrasound shows unremarkable renal sonogram. Assessment And Plan: A 68-year-old female with; 1. Acute respiratory distress with hypoxia, improving. We will recheck room air saturation. The patient was hypoxic on room air yesterday, feeling better today, secondary to pneumonia and effusions. 2. Right lower lobe pneumonia. Continue antibiotics. Cultures are negative. Antibiotics adjusted. Appreciate Dr. Dorantes's input. 3. Right pleural effusion. CT chest does not show any loculation. We will continue with Lasix. Monitor I's and O's. 4. Obesity, body mass index of 32. 5. Diabetes mellitus type 2, non-insulin requiring, with hyperglycemia. Continue sliding scale insulin. Accu-Cheks. 6. Mild pulmonary hypertension. 7. Hypokalemia. Replace and monitor. 8. Essential hypertension, not well controlled. Lasix has been added. We will continue to monitor blood pressure. 9. Elevated troponin level secondary to hypoxia and demand mismatch. 10. Efzju-fq-ttqhsqx kidney injury, stage 3. Renal sonogram is unremarkable. Avoid NSAIDs. Continue to monitor creatinine level. Needs outpatient renal followup. 11. Gastrointestinal and deep venous thrombosis prophylaxis addressed. Plan: DC once off of O2. /MILLY Voice ID: [id number] Report ID: [id number] MTDD
[2018-08-13 04:56] VITALS: BMI 32.7
[2018-08-13] MEDS: FUROSEMIDE 40 MG/4 ML VIAL IV SCH ×2 (05:35→17:01)
[2018-08-13 06:13] LABS: Absolute Lymphocytes (CBC) 1.5 K/uL (0.7-4.9); Absolute Monocytes 0.5 K/uL (0.1-1.3); Absolute Neutrophil 2.5 K/uL (1.8-8.0); Basophils % 1.3 % (0-1.3); Eosinophils % 7.8 % (0-4.4); Hematocrit 28.2 % (36.0-45.0); Lymphocytes % 30.6 % (15.3-44.8); MCH 32.2 pg (27.0-35.0); MCV 90.4 fL (80-100); MPV 7.9 fL (7.6-11.3); Monocytes % 10.1 % (3.3-12.3); RBC Red Blood Cell Count 3.12 M/uL (3.86-4.86)
[2018-08-13 06:32] LABS: Albumin 2.5 g/dL (3.4-5.0); Bilirubin Total 0.2 mg/dL (0.2-1.0); Potassium 3.2 mmol/L (3.5-5.1); Protein, Total 6.1 g/dL (6.4-8.2)
[2018-08-13] MEDS: INSULIN -REGULAR HUMAN 50 UNIT/0.5 ML ML SQ SCH ×4 (07:30→21:22)
[2018-08-13] MEDS: MEMANTINE HCL 28 MG PO SCH (09:00)
[2018-08-13] MEDS ORDERED: POTASSIUM CL SA 10 MEQ TAB PO SCH (09:00)
[2018-08-13] MEDS: GLIMEPIRIDE 2 MG TABLET PO SCH (10:41)
[2018-08-13] MEDS: AMLODIPINE 10 MG TAB PO SCH (10:42)
[2018-08-13] MEDS: METOPROLOL TAR 50 MG TAB PO SCH ×2 (10:42→21:22)
[2018-08-13] MEDS: CEFTRIAXONE/SWI 1gm 1 GM/10 ML SYR IVP SCH ×2 (10:43→21:27)
[2018-08-13] MEDS: POTASSIUM CL SA 10 MEQ TAB PO SCH (12:39)
--- NOTE | 2018-08-13 15:12 | PN ---
Date of Progress Note: 08/13/2018 Subjective: The patient is seen and examined, chart reviewed, and case discussed with RA. The patie nt is still very hypoxic and short of breath with minimal exertion. Room air saturation was 87%. Ov erall, patient feels better other than the shortness of breath. Review of Systems: Negative except as above. Medications: List reviewed. Physical Examination: Vital Signs: Temperature 97.3, heart rate 55, blood pressure 170/76, respirations 18, O2 94% on 2 L via nasal cannula. General: Awake, alert, oriented x3, in some mild respiratory distress. Elderly ill appearing female , obese. CV: S1 and S2. Regular rate and rhythm. Peripheral pulses present. Respiratory: Diminished breath sounds at the bases. No wheezing or crackles. Gastrointestinal: Abdomen is soft, nontender, nondistended. Positive bowel sounds. Extremities: No clubbing, cyanosis, or edema. Neurologic: Nonfocal. Laboratory Data: Sodium 141, potassium 3.2, chloride 109, CO2 24, BUN 31, creatinine 1.7, glucose 88 , calcium 8.3, albumin 2.5. WBC 4.9, H and H 10 and 28.2, platelets 199, neutrophils 50%. Blood cul tures show no growth to date. Assessment And Plan: A 68-year-old female with: 1.Acute respiratory distress with hypoxia, clinically improved, however still hypoxic on room air, l ikely secondary to pneumonia and pleural effusion. Continue to wean off as tolerated. Continue with PT. Appreciate Dr. Dorantes's input. 2.Right lower lobe pneumonia. Continue antibiotics. Blood cultures so far negative. 3.Right-sided pleural effusion. CT chest reviewed. Continue diuresis with Lasix. We will monitor fluid balance. 4.Obesity, body mass index of 32. 5.Diabetes mellitus type 2, non-insulin requiring with hyperglycemia. We will continue sliding scal e insulin and Accu-Cheks. 6.Mild pulmonary hypertension. 7.Hypokalemia. Replace and monitor. 8.Essential hypertension. Medications have been adjusted. Blood pressure not well controlled. 9.Elevated troponin levels secondary to demand mismatch hypoxia related to respiratory distress. 10.Acute chronic kidney injury, stage 3. Creatinine is around baseline. We will continue to avoid NSAIDs and nephrotoxins. We will monitor creatinine as the patient is now on Lasix. The patient tisha l need to follow up with Nephrology outpatient. 11.Gastrointestinal and deep venous thrombosis prophylaxis addressed. Plan: At this point is not able to be discharged without home O2. We will continue to monitor for n ow. /MILLY Voice ID: [id number] Report ID: [id number]
[2018-08-13] MEDS: ENOXAPARIN 30 MG/0.3 ML SQ SCH (16:42)
[2018-08-13] MEDS: ATORVASTATIN 20 MG TAB PO SCH (21:21)
[2018-08-14 01:17] VITALS: O2SAT 93
[2018-08-14] MEDS: FUROSEMIDE 40 MG/4 ML VIAL IV SCH (05:29)
[2018-08-14] MEDS: INSULIN -REGULAR HUMAN 50 UNIT/0.5 ML ML SQ SCH ×2 (07:30→12:57)
[2018-08-14] MEDS: MEMANTINE HCL 28 MG PO SCH (09:00)
[2018-08-14] MEDS: METOPROLOL TAR 50 MG TAB PO SCH (09:08)
[2018-08-14] MEDS: POTASSIUM CL SA 10 MEQ TAB PO SCH (09:08)
[2018-08-14] MEDS: CEFTRIAXONE/SWI 1gm 1 GM/10 ML SYR IVP SCH (09:08)
[2018-08-14] MEDS: AMLODIPINE 10 MG TAB PO SCH (09:08)
[2018-08-14] MEDS: GLIMEPIRIDE 2 MG TABLET PO SCH (09:08)
[2018-08-14] MEDS ORDERED: POTASSIUM CL SA 10 MEQ TAB PO ONE (09:20)
[2018-08-14] MEDS: HYDRALAZINE HCL 20 MG/ML VIAL IV PRN (13:00)
[2018-08-14 14:25] VITALS: BP 136/61; TEMP 97.8
--- NOTE | 2018-08-15 01:26 | DS ---
Date of Discharge: 08/14/2018 Thread Singer: Dr. Dorantes with Pulmonology. Admitting Diagnoses: 1.Acute respiratory distress with hypoxia. 2.Right lower lobe pneumonia. 3.Right small pleural effusion. 4.Obesity. BMI 32.7. 5.Diabetes mellitus type 2, wpi-qctfxut-ihxrvidwb with hyperglycemia. 6.Essential hypertension, uncontrolled. 7.Elevated troponin level, likely due to demand mismatch. 8.Acute on chronic kidney injury. Discharge Diagnoses: 1.Acute respiratory distress with hypoxia, improved. 2.Right lower lobe pneumonia. Negative blood cultures. 3.Right-sided pleural effusion. 4.Obesity, BMI 32.7. 5.Diabetes mellitus type 2, eby-mojwziq-szrzlkpol with hyperglycemia. 6.Mild pulmonary hypertension. 7.Hypokalemia, replaced. 8.Essential hypertension, uncontrolled. 9.Elevated troponin level secondary to demand mismatch and respiratory distress. 10.Acute on chronic kidney injury, stage 3. Creatinine improved at baseline. The patient will need outpatient nephrology followup. Hospital Course: The patient is a 68-year-old female who comes in with shortness of breath. The [facility] ient was found to have hypoxia, 88% on room air. She does not use oxygen at home. Chest x-ray showe d right lower lobe pneumonia. She was started on antibiotics. Cultures were obtained which remained negative. She was not seen by Pulmonology. She had significant hypoxia, which was likely related t o her pneumonia and pleural effusion. She did have an elevated BNP level and mild bump in her tropon in. CT scan of the chest was done, which showed the pleural effusion and pneumonia. Lung V/Q scan r uled out PE. Echocardiogram was also done, showed EF of 62%, and mitral regurg, tricuspid regurg, mi ld primary hypertension, aortic sclerosis, and mild aortic regurgitation. The patient was started on Lasix and did have some improvement. The patient was difficult to wean off oxygen, had multiple epi sodes of hypoxia, especially with activity. However, the patient did improve and was able to be wean ed off oxygen. Her room air sat on discharge was 95%. She was counseled to avoid strenuous activity until she sees the felting machine operator helper. She needs to continue on a fluid-restricted diet. The patient's flu screen was also negative. She did have some hypokalemia related to the Lasix, which was replaced . The patient did not appear septic. She was then cleared for discharge from Pulmonology standpoint . The patient will be discharged on Lasix with potassium supplementation and Levaquin for a week. Followup: Follow up with primary care physician in 2 to 3 days. Follow up with felting machine operator helper, Dr. Eugenio nelson in 2 weeks. The patient also needs to establish care with administrative personal assistant, Dr. Branch in 2 we eks. Return to ER for worsening condition. Diet: Low-sodium, fluid-restricted diet. Activity: No strenuous activity. Physical Examination: General: Awake, alert, oriented, no acute distress. CV: S1, S2. Peripheral pulses are present. Respiratory: Diminished breath sounds at the right base improved. Extremities: No clubbing, cyanosis, edema. Neuro: Nonfocal. Gastrointestinal: Abdomen is soft, nontender, nondistended. Positive bowel sounds. Total time spent discharging the patient was 39 minutes. /MILLY Voice ID: [id number] Report ID: [id number]
== END 2018-08-14 16:22 | disposition home or self-care (01) | DRG 194 ==
LOC: ER 15:30 → ERHOLD 17:45 → 2ND 19:47
PROVIDERS: ADMIT Family Medicine; ATTEND Family Medicine
DX: J18.9 Pneumonia, unspecified organism (principal); J91.8 Pleural effusion in other conditions classified elsewhere; N17.9 Acute kidney failure, unspecified; R06.03 Acute respiratory distress; R09.02 Hypoxemia; E66.9 Obesity, unspecified; Z68.32 Body mass index [BMI] 32.0-32.9, adult; E11.65 Type 2 diabetes mellitus with hyperglycemia; Z79.84 Long term (current) use of oral hypoglycemic drugs; E87.6 Hypokalemia; I12.9 Hypertensive chronic kidney disease with stage 1 through stage 4 chronic kidney disease, or unspecified chronic kidney disease; E11.22 Type 2 diabetes mellitus with diabetic chronic kidney disease; N18.3 Chronic kidney disease, stage 3 (moderate); R79.89 Other specified abnormal findings of blood chemistry
CPT/HCPCS: 36415; 71045; 71046; 71250; 76770; 78582; 80048; 80053; 81003; 81015; 82805; 82962; 83605; 83735; 83880; 84145; 84484; 85025; 85610; 87040; 87804; 93005; 93306; 94640; 94760; 99285; A9540; A9558; J0360; J0456; J0696; J1650; J1940; J3475

== ENCOUNTER 2018-08-19 21:34 | Inpatient (IN) | payer MEDICARE ==
[2018-08-19] MEDS ORDERED: FUROSEMIDE 40 MG/4 ML VIAL ONE (22:13)
[2018-08-19 22:18] LABS: Urine Blood 2+ (NEG); Urine Glucose 2+ (NEG); Urine Protein 3+ (NEG); Urine Specific Gravity 1.025 (1.005-1.030); Urine pH 6.5 (5.0-7.0)
[2018-08-19 22:39] LABS: Absolute Lymphocytes (CBC) 1.5 K/uL (0.7-4.9); Absolute Monocytes 0.5 K/uL (0.1-1.3); Absolute Neutrophil 4.2 K/uL (1.8-8.0); Basophils % 1.5 % (0-1.3); Eosinophils % 4.8 % (0-4.4); Hematocrit 30.7 % (36.0-45.0); Lymphocytes % 22.2 % (15.3-44.8); MCV 90.1 fL (80-100); MPV 8.1 fL (7.6-11.3)
--- NOTE | 2018-08-19 22:55 | ER ---
Nurse's Notes [facility] Name: Diya Hassan Age: 68 yrs Sex: Female : 1950 Arrival Date: 08/19/2018 Time: 21:37 Bed 7 Private MD: Diagnosis: Pulmonary edema;Unspecified combined systolic (congestive) and diastolic (congestive) heart failure;Hypoxemia Presentation: 08/19 21:42 Presenting complaint: Patient states: SOB and swelling all over for 2 days. Recently aj discharged from this hospital with pneumonia. Transition of care: patient was not received from another setting of care. Onset of symptoms was August 17, 2018. Risk Assessment: Do you want to hurt yourself or someone else? Patient reports no desire to harm self or others. Initial Sepsis Screen: Does the patient meet any 2 criteria? No. Patient's initial sepsis screen is negative. Does the patient have a suspected source of infection? No. Patient's initial sepsis screen is negative. Care prior to arrival: None. 21:42 Method Of Arrival: Wheelchair aj 21:42 Acuity: RJ 2 aj Triage Assessment: 21:45 General: Appears in no apparent distress. uncomfortable, Behavior is calm, cooperative, aj appropriate for age. Pain: Denies pain. Neuro: Level of Consciousness is awake, alert, obeys commands, Oriented to person, place, time, situation, Appropriate for age. Respiratory: Reports shortness of breath at rest Airway is patent Respiratory effort is even, labored, Respiratory pattern is tachypnea Onset: The symptoms/episode began/occurred yesterday, the patient has moderate shortness of breath. Derm: Skin is intact, is healthy with good turgor, Skin is pink, warm \T\ dry. normal. Historical: - Allergies: 21:45 NKA; aj - Home Meds: 22:37 lisinopril 40 mg oral tab 1 tab once daily [Active]; Klor-Con M20 20 mEq Oral TbTQ 1 rr5 tab once daily [Active]; furosemide 40 mg Oral tab 1 tab 2 times per day [Active]; memantine oral 28mg OD oral [Active]; glimepiride 2 mg Oral tab 1 tab once daily [Active]; nitrofurantoin mon- mcr 100mg OD [Active]; amlodipine 10 mg tab [Active]; - PMHx: 21:45 Diabetes - NIDDM; Hypertension; aj - PSHx: 21:45 None; aj - Immunization history:: Adult Immunizations up to date. - Social history:: Smoking status: Patient/guardian denies using tobacco. - Ebola Screening: : Patient negative for fever greater than or equal to 101.5 degrees Fahrenheit, and additional compatible Ebola Virus Disease symptoms Patient denies exposure to infectious person Patient denies travel to an Ebola-affected area in the 21 days before illness onset No symptoms or risks identified at this time. - Family history:: not pertinent. - Hospitalizations: : The patient was recently seen at [facility]. Screenin:20 Abuse screen: Denies threats or abuse. Denies injuries from another. Nutritional rr5 screening: No deficits noted. Tuberculosis screening: No symptoms or risk factors identified. Fall Risk IV access (20 points). Gait- Weak (10 pts.). Total Valdovinos Fall Scale indicates Low Risk Score (25-44 pts). Fall prevention measures have been instituted. Side Rails Up X 2 Frequent Obs/Assesments occuring. Assessment: 22:00 General: Appears in no apparent distress. ill, Behavior is calm, cooperative, rr5 appropriate for age. Pain: Denies pain. Neuro: Level of Consciousness is awake, alert, obeys commands, Oriented to person, place, time, situation. Cardiovascular: Capillary refill < 3 seconds Patient's skin is warm and dry. Rhythm is regular. Respiratory: Airway is patent Respiratory effort is even, Respiratory pattern is tachypnea Breath sounds with crackles. GI: No signs and/or symptoms were reported involving the gastrointestinal system. : Urine is clear. EENT: No signs and/or symptoms were reported regarding the EENT system. Derm: No signs and/or symptoms reported regarding the dermatologic system. Musculoskeletal: Capillary refill < 3 seconds, Swelling present in face, right leg and left leg. 23:00 Reassessment: Patient appears in no apparent distress at this time. no complaints made. rr5 Patient states feeling better. Patient states symptoms have improved. 23:28 Reassessment: Patient appears in no apparent distress at this time. positive urine rr5 output post lasix administration Patient states feeling better. Patient states symptoms have improved. 08/20 00:15 Reassessment: Patient appears in no apparent distress at this time. no complaints made. rr5 explained the need for admission. Patient states symptoms have improved. Vital Signs: 08/19 21:45 BP 181 / 77; Pulse 65; Resp 33; Temp 98.4; Pulse Ox 91% on R/A; Weight 77.11 kg; Height aj 5 ft. 1 in. (154.94 cm); 22:20 BP 184 / 70; Pulse 61; Resp 26; Pulse Ox 98% on 2 lpm NC; Pain 0/10; rr5 23:00 BP 167 / 79; Pulse 58; Resp 21; Pulse Ox 98% on 2 lpm NC; rr5 23:59 BP 178 / 84; Pulse 64; Resp 21; Pulse Ox 96% on 2 lpm NC; rr5 08/20 00:10 BP 180 / 83; Pulse 60; Resp 23; Pulse Ox 97% on 2 lpm NC; rr5 08/19 21:45 Body Mass Index 32.12 (77.11 kg, 154.94 cm) aj 08/19 23:59 dr. childress informed for the latest vital signs rr5 08/20 00:10 dr. childress aware rr5 ED Course: 08/19 21:37 Patient arrived in ED. ag3 21:45 Triage completed. aj 21:45 Arm band placed on left wrist. Patient placed in an exam room. aj 21:50 Hiram Childress MD is Attending Physician. rn 22:00 Patient has correct armband on for positive identification. Bed in low position. Call rr5 light in reach. Side rails up X2. 22:00 surveillance monitor on. Pulse ox on. NIBP on. Door closed. Lights dimmed. rr5 22:02 Jarad Jang, RN is Primary Nurse. rr5 22:12 XRAY CXR (1 view) In Process Unspecified. EDMS 22:15 Inserted saline lock: 20 gauge in right forearm, using aseptic technique. Blood rr5 collected. by account manager education horacio. 22:54 Kerrie Bliss MD is Hospitalizing Provider. rn 23:33 Patient admitted, IV remains in place. intact, No redness/swelling at site. rr5 08/20 00:10 No provider procedures requiring assistance completed. rr5 Administered Medications: 08/19 22:20 Drug: Lasix 40 mg {Note: [id number].} Route: IVP; Site: right forearm; rr5 23:32 Follow up: Response: Marked relief of symptoms; Other; post lasix urine output positive rr5 Intake: 23:30 post lasix rr5 Output: 23:30 Urine: 100ml (Voided); Total: 100ml. rr5 23:30 post lasix rr5 Outcome: 22:55 Decision to Hospitalize by Provider. rn 08/20 00:10 Admitted to Tele accompanied by tech, via stretcher, room 404, with oxygen, with chart, rr5 Report called to monika velazquez Condition: stable Instructed on the need for admit. 00:57 Patient left the ED. rr5 Signatures: Dispatcher [employer] Minerva Dent RN RN aj Nieto, Roman, MD MD rn Gomez, Alice ag3 Roque, Raymond, RN RN rr5 Corrections: (The following items were deleted from the chart) 00:28 00:10 Admitted to Tele accompanied by nurse, via wheelchair, Report called to monika velazquez rr5 rr5
--- NOTE | 2018-08-19 22:56 | EDPHYS ---
Physician Documentation [facility] Name: Diya Hassan Age: 68 yrs Sex: Female : 1950 Arrival Date: 08/19/2018 Time: 21:37 Bed 7 Private MD: ED Physician Hiram Childress HPI: 08/19 22:22 This 68 yrs old Female presents to ER via Wheelchair with complaints of rn Breathing Difficulty. 22:22 The patient has shortness of breath at rest, with light activity. Onset: The rn symptoms/episode began/occurred 2 day(s) ago. Duration: The symptoms are continuous. The patient's shortness of breath is aggravated by exertion, light activity, supine position, talking, walking. Severity of symptoms: At their worst the symptoms were moderate in the emergency department the symptoms are unchanged. The patient has experienced similar episodes in the past. The patient has been recently seen by a physician: The patient has been recently been admitted at [facility]. Reports admitted last week for pneumonia, got better, went home, now for last 2 days increased sob with swelling of legs, compliant with her medication, no fever, non-productive cough, afebrile. . Historical: - Allergies: 21:45 NKA; aj - Home Meds: 22:37 lisinopril 40 mg oral tab 1 tab once daily [Active]; Klor-Con M20 20 mEq Oral TbTQ 1 rr5 tab once daily [Active]; furosemide 40 mg Oral tab 1 tab 2 times per day [Active]; memantine oral 28mg OD oral [Active]; glimepiride 2 mg Oral tab 1 tab once daily [Active]; nitrofurantoin mon- mcr 100mg OD [Active]; amlodipine 10 mg tab [Active]; - PMHx: 21:45 Diabetes - NIDDM; Hypertension; aj - PSHx: 21:45 None; aj - Immunization history:: Adult Immunizations up to date. - Social history:: Smoking status: Patient/guardian denies using tobacco. - Ebola Screening: : Patient negative for fever greater than or equal to 101.5 degrees Fahrenheit, and additional compatible Ebola Virus Disease symptoms Patient denies exposure to infectious person Patient denies travel to an Ebola-affected area in the 21 days before illness onset No symptoms or risks identified at this time. - Family history:: not pertinent. - Hospitalizations: : The patient was recently seen at [facility]. ROS: 22:22 Constitutional: Negative for fever, chills, and weight loss, Eyes: Negative for injury, rn pain, redness, and discharge, Neck: Negative for injury, pain, and swelling, Cardiovascular: Negative for chest pain, palpitations Respiratory: + sob and non-productive cough Abdomen/GI: Negative for abdominal pain, nausea, vomiting, diarrhea, and constipation, MS/Extremity: Negative for injury and deformity, Skin: Negative for injury, rash, and discoloration, Neuro: Negative for headache, weakness, numbness, tingling, and seizure. Exam: 22:22 Constitutional: This is a well developed, well nourished patient who is awake, alert, rn + moderate tachypnea Head/Face: Normocephalic, atraumatic. Eyes: Pupils equal round and reactive to light, extra-ocular motions intact. Lids and lashes normal. Conjunctiva and sclera are non-icteric and not injected. Cornea within normal limits. Periorbital areas with no swelling, redness, or edema. Cardiovascular: tachycardic, regular, no murmur Respiratory: mild tachypnea, no retractions, diminished breath sounds at bases Abdomen/GI: soft, non-tender MS/ Extremity: Pulses equal, no cyanosis. Neurovascular intact. Full, normal range of motion. Equal circumference. Neuro: Awake and alert, GCS 15, oriented to person, place, time, and situation. Cranial nerves II-XII grossly intact. Motor strength 5/5 in all extremities. Sensory grossly intact. Vital Signs: 21:45 BP 181 / 77; Pulse 65; Resp 33; Temp 98.4; Pulse Ox 91% on R/A; Weight 77.11 kg; Height aj 5 ft. 1 in. (154.94 cm); 22:20 BP 184 / 70; Pulse 61; Resp 26; Pulse Ox 98% on 2 lpm NC; Pain 0/10; rr5 23:00 BP 167 / 79; Pulse 58; Resp 21; Pulse Ox 98% on 2 lpm NC; rr5 23:59 BP 178 / 84; Pulse 64; Resp 21; Pulse Ox 96% on 2 lpm NC; rr5 1124 00:10 BP 180 / 83; Pulse 60; Resp 23; Pulse Ox 97% on 2 lpm NC; rr5 08/19 21:45 Body Mass Index 32.12 (77.11 kg, 154.94 cm) aj 08/19 23:59 dr. childress informed for the latest vital signs rr5 08/20 00:10 dr. childress aware rr5 MDM: 08/19 21:51 Patient medically screened. rn 22:54 Differential diagnosis: CHF exacerbation, pulmonary edema. Data reviewed: vital signs, rn nurses notes, lab test result(s), radiologic studies, plain films, and as a result, I will admit patient. Counseling: I had a detailed discussion with the patient and/or guardian regarding: the historical points, exam findings, and any diagnostic results supporting the discharge/admit diagnosis, lab results, radiology results, the need for further work-up and treatment in the hospital. Admission orders: after a detailed discussion of the patient's condition and case, the admit orders are written by me. 08/19 22:02 Order name: BMP; Complete Time: 23: rn 08/19 22:02 Order name: CBC with Diff; Complete Time: 22:51 rn 08/19 22:02 Order name: Hepatic Function; Complete Time: 23: rn 08/19 22:02 Order name: Lipase; Complete Time: 23: rn 08/19 22:02 Order name: NT PRO-BNP; Complete Time: 23: rn 08/19 22:02 Order name: Troponin (emerg Dept Use Only); Complete Time: 23:23 rn 08/19 22:02 Order name: XRAY CXR (1 view) 08/19 22:02 Order name: EKG; Complete Time: 22:03 rn 08/19 22:02 Order name: Cardiac monitoring; Complete Time: 22:07 rn 08/19 22:02 Order name: EKG - Nurse/Tech; Complete Time: 22:20 rn 08/19 22:02 Order name: IV Saline Lock; Complete Time: 22:20 rn 08/19 22:02 Order name: Labs collected and sent; Complete Time: 22:20 rn 08/19 22:03 Order name: Urine Dipstick--Ancillary (enter results); Complete Time: 22:51 ms 08/19 22:02 Order name: O2 Per Protocol; Complete Time: 22:07 rn 08/19 22:02 Order name: O2 Sat Monitoring; Complete Time: : rn Administered Medications: 22:20 Drug: Lasix 40 mg {Note: [id number].} Route: IVP; Site: right forearm; rr5 23:32 Follow up: Response: Marked relief of symptoms; Other; post lasix urine output positive rr5 Disposition: 08/19/18 22:55 Hospitalization ordered by Kerrie Bliss for Inpatient Admission. Preliminary diagnosis are Pulmonary edema, Unspecified combined systolic (congestive) and diastolic (congestive) heart failure, Hypoxemia. - Bed requested for Telemetry/MedSurg (Inpatient). - Status is Inpatient Admission. rr5 - Condition is Stable. - Problem is new. - Symptoms have improved. UTI on Admission? No Signatures: Dispatcher [employer] EDMS Minerva Rosado RN RN aj Chretien, Felicia, RN RN fc Nieto, Roman, MD MD rn Roque, Raymond, RN RN rr5 Corrections: (The following items were deleted from the chart) 23:12 22:55 Hospitalization Ordered by Kerrie Bliss MD for Inpatient Admission. Preliminary fc diagnosis is Pulmonary edema; Unspecified combined systolic (congestive) and diastolic (congestive) heart failure; Hypoxemia. Bed requested for Telemetry/MedSurg (Inpatient). Status is Inpatient Admission. Condition is Stable. Problem is new. Symptoms have improved. UTI on Admission? No. rn 08/20 00:57 08/19 23:12 08/19/2018 22:55 Hospitalization Ordered by Kerrie Bliss MD for Inpatient rr5 Admission. Preliminary diagnosis is Pulmonary edema; Unspecified combined systolic (congestive) and diastolic (congestive) heart failure; Hypoxemia. Bed requested for Telemetry/MedSurg (Inpatient). Status is Inpatient Admission. Condition is Stable. Problem is new. Symptoms have improved. UTI on Admission? No. fc
[2018-08-19 22:57] LABS: Bilirubin Direct 0.1 mg/dL (0-0.2); Bilirubin Total 0.4 mg/dL (0.2-1.0); Potassium 4.3 mmol/L (3.5-5.1); Protein, Total 6.9 g/dL (6.4-8.2); Troponin (Emerg Dept Use Only) 0.1 ng/mL (0.0-0.045)
[2018-08-19] MEDS ORDERED: MAGNESIUM HYDROXIDE 8% 30 ML PO PRN (23:27)
[2018-08-19] MEDS ORDERED: ONDANSETRON 4 MG/2 ML VIAL IV PRN (23:27)
[2018-08-19] MEDS ORDERED: ACETAMINOPHEN 500 MG TAB PO PRN (23:27)
[2018-08-20] MEDS: METOPROLOL TAR 50 MG TAB PO SCH ×2 (04:28→19:58)
[2018-08-20 05:19] LABS: Urine Appearance CLEAR; Urine Bilirubin NEGATIVE (NEG); Urine Blood 1+ (NEG); Urine Color YELLOW; Urine Glucose TRACE (NEG); Urine Protein 2+ (NEG); Urine Specific Gravity <=1.005 (1.005-1.030); Urine Urobilinogen 0.2 mg/dL (0.2-1.0)
[2018-08-20 05:22] LABS: Urine Microscopic Reflex ORDER UMIC
[2018-08-20 05:43] LABS: Urine Bacteria <20 /HPF (<20); Urine Culture Reflex Order NOT NEEDED; Urine RBC <5 /HPF (NONE SEEN)
[2018-08-20 06:06] LABS: Absolute Lymphocytes (CBC) 1.4 K/uL (0.7-4.9); Absolute Monocytes 0.5 K/uL (0.1-1.3); Basophils % 1.4 % (0-1.3); Eosinophils % 5.1 % (0-4.4); Lymphocytes % 21.8 % (15.3-44.8); MCH 32.1 pg (27.0-35.0); MCV 90.2 fL (80-100); MPV 8.1 fL (7.6-11.3); Monocytes % 8.3 % (3.3-12.3)
[2018-08-20 06:33] LABS: Albumin 2.6 g/dL (3.4-5.0); Bilirubin Total 0.3 mg/dL (0.2-1.0); Potassium 4.3 mmol/L (3.5-5.1)
--- NOTE | 2018-08-20 06:58 | EKG ---
Test Date: 2018-08-19 Test Time: 22:17:54 Ticket Maker: RR MEASUREMENT RESULTS: Intervals: Rate: 61 MO: 142 QRSD: 90 QT: 428 QTc: 430 Hope: P: 51 MO: 142 QRS: 43 T: 36 INTERPRETIVE STATEMENTS: Normal sinus rhythm Septal infarct, age undetermined Abnormal ECG Compared to ECG 08/09/2018 15:44:24 Myocardial infarct finding now present Sinus bradycardia no longer present ST (T wave) deviation no longer present Electronically Signed On 08-20-18 06:58:29 MEDICAL RECORDS ANALYST by Hector Snow
--- NOTE | 2018-08-20 08:47 | RAD REPORT ---
EXAM DESCRIPTION: RAD - Chest Single View - 08/19/2018 10:15 pm CLINICAL HISTORY: Dyspnea COMPARISON: August 11 TECHNIQUE: AP portable chest image was obtained 2200 hours . FINDINGS: Interstitial edema pattern is present with mild vascular engorgement. Cardiomegaly is pres ent similar to comparison. Bilateral pleural effusions are present left greater than right. These hav e probably increased from the comparison. No acute bony abnormality seen. No acute aortic findings ibarra spected. IMPRESSION: CHF/volume overload pattern with mild to moderate bilateral pleural effusion, left great er than right.
[2018-08-20] MEDS: ENOXAPARIN 30 MG/0.3 ML SQ SCH (09:04)
[2018-08-20] MEDS: FUROSEMIDE 40 MG/4 ML VIAL IV SCH ×2 (09:04→17:19)
[2018-08-20] MEDS: ASPIRIN EC 81 MG TAB PO SCH (09:04)
[2018-08-20] MEDS ORDERED: GLUCAGON 1 MG/VIAL IM PRN (13:08)
[2018-08-20] MEDS ORDERED: D50W 25 GM/50 ML SYRINGE IV PRN (13:08)
[2018-08-20] MEDS: AMLODIPINE 10 MG TAB PO SCH (13:42)
[2018-08-20] MEDS: LISINOPRIL 20 MG TAB PO SCH (13:42)
--- NOTE | 2018-08-20 16:02 | P.HP ---
Certification for Inpatient Patient admitted to: Inpatient With expected LOS: >2 Midnights Patient will require the following post-hospital care: None Practitioner: I am a practitioner with admitting privileges, knowledge of patient current condition, hospital course, and medical plan of care. Services: Services provided to patient in accordance with Admission requirements found in Title 42 Section 412.3 of the Code of Federal Regulations Patient History Date of Service: 08/19/18 Reason for admission: shortness of breath History of Present Illness: Patient is a 68-year-old female who came into the hospital with difficulty breathing. Patient was in the hospital a week ago with similar complaints. She tells me she decided to leave early because she had family come in for the . She was not really feeling well but she told them she was because she had to go home. Since she has been home she slowly been progressively worsening. Her respiratory status has continued to worsen. Patient came into the hospital for further evaluation. In the emergency room patient's chest x-ray showed pulmonary edema. She does have some protein urea and some kidney disease. Probably need to check a 24 hr urine for protein as her albumin is very low. We should discontinue her Norvasc and continue her lisinopril. We probably need to check a renal Doppler as well. I will go ahead and consult Nephrology for further evaluation and to assist in her care. Her blood pressure is significantly elevated. This could be related to elevated renin aldosterone levels. She may also have diastolic dysfunction from poorly controlled blood pressure. Allergies No Known Allergies Allergy (Verified 12/01/16 01:29) Home Medications: Amlodipine [Norvasc*] 10 mg PO DAILY 08/09/18 Glimepiride [Amaryl*] 2 mg PO DAILY 08/09/18 Memantine HCl [Memantine HCl ER] 28 mg PO DAILY 08/09/18 Furosemide [Lasix] 40 mg PO BID #60 tablet 08/14/18 Potassium Chloride 20 meq PO DAILY #30 tablet.er 08/14/18 Lisinopril 40 mg PO DAILY 08/19/18 Nitrofurantoin Monohyd/M-Cryst [Nitrofurantoin [place]-Mcr 100 mg] 100 mg PO DAILY 08/19/18 - Past Medical/Surgical History Has patient received pneumonia vaccine in the past: Yes Diabetic: Yes -: HTN -: type 2 diabetes -: hyperlipidemia -: Cholecystectomy - Family History Father Medical History: Cancer Mother Medical History: Stroke Aunt Medical History: Cancer Notes: Ovarian - Social History Smoking Status: Former smoker Alcohol use: No CD- Drugs: No Caffeine use: Yes Place of Residence: Home Review of Systems 10-point ROS is otherwise unremarkable Physical Examination - Vital Signs Temperature: 98.1 F Blood Pressure: 192/84 Pulse: 57 Respirations: 18 Pulse Ox (%): 96 - Physical Exam General: Alert, In no apparent distress, Oriented x3 HEENT: Atraumatic, Normocephalic Neck: Supple, 2+ carotid pulse no bruit, JVD distended Respiratory: Crackles/rales Cardiovascular: Regular rate/rhythm, Normal S1 S2, Abnormal S3, Systolic murmur Gastrointestinal: Soft and benign, Non-distended, No tenderness Musculoskeletal: No clubbing, Swelling Integumentary: No rashes, No breakdown, No significant lesion Neurological: Normal gait, Normal speech, Normal strength at 5/5 x4 extr, Normal tone, Sensation intact, Cranial nerves 3-12 intact Lymphatics: No axilla or inguinal lymphadenopathy - Studies Laboratory Data (last 24 hrs) 08/19/18 22:15: WBC 6.6 D, Hgb 10.9 L, Hct 30.7 L, Plt Count 190 08/19/18 22:15: Sodium 137, Potassium 4.3, BUN 32 H, Creatinine 2.00 H, Glucose 183 H, Total Bilirubin 0.4, AST 39 H, ALT 38, Alkaline Phosphatase 119 H, Lipase 285 Assessment & Plan - Problems (Diagnosis) (1) Congestive heart failure, diastolic, left, w/preserved LV function, NYHA class 4 Current Visit: Yes Status: Acute (2) Malignant hypertension Current Visit: Yes Status: Acute (3) Proteinuria Current Visit: Yes Status: Acute (4) Hypoalbuminemia Current Visit: Yes Status: Acute (5) Edema due to hypoalbuminemia Current Visit: Yes Status: Acute (6) Dyspnea Current Visit: No Status: Acute (7) DM2 (diabetes mellitus, type 2) Current Visit: No Status: Chronic Qualifiers: Diabetes mellitus care home insulin use: without supervisor intermediates use Diabetes mellitus complication status: without complication Qualified Code(s): E11.9 - Type 2 diabetes mellitus without complications (8) HTN (hypertension) Current Visit: No Status: Chronic Qualifiers: Hypertension type: essential hypertension Qualified Code(s): I10 - Essential (primary) hypertension - Plan 1. Echocardiogram will be reviewed 2. Cont HERMAN inhibitor 3. DC amlodipine and continue low-dose beta-niurka 4. nephrology consultation 5. Gentle diuresing 6. Strict I's and O's 7. 24 hr urine for protein 8. Daily weights 9. may need to do a renal Doppler to check for renal artery stenosis and may need to order renin and aldosterone levels as well. Discharge Plan: Home Plan to discharge in: Greater than 2 days - Advance Directives Does patient have a Living Will: No Does patient have a Durable POA for Healthcare: No - Code Status/Comfort Care Code Status Assessed: Yes Code Status: Full Code Critical Care: No Time Spent Managing PTS Care (In Minutes): 50
[2018-08-20] MEDS: INSULIN -REGULAR HUMAN 50 UNIT/0.5 ML ML SQ SCH ×2 (16:30→19:59)
--- NOTE | 2018-08-20 22:20 | P.PN ---
Subjective Date of Service: 08/21/18 Chief Complaint: shortness of breath Physical Examination - Vital Signs Temperature: 98.6 F Blood Pressure: 128/56 Pulse: 56 Respirations: 20 Pulse Ox (%): 97 - Studies Laboratory Data (last 24 hrs) 08/19/18 22:15: WBC 6.6 D, Hgb 10.9 L, Hct 30.7 L, Plt Count 190 08/19/18 22:15: Sodium 137, Potassium 4.3, BUN 32 H, Creatinine 2.00 H, Glucose 183 H, Total Bilirubin 0.4, AST 39 H, ALT 38, Alkaline Phosphatase 119 H, Lipase 285 Assessment And Plan - Plan Acute on chronic Congestive heart failure, diastolic, left, w/preserved LV function, NYHA class 4 Echocardiogram will be reviewed Gentle diuresing Strict I's and O's Daily weights Malignant hypertension Cont HERMAN inhibitor Proteinuria Hypoalbuminemia Edema due to hypoalbuminemia DC amlodipine and continue low-dose beta-niurka 24 hr urine for protein: ? Nephrotic syndrome may need to do a renal Doppler to check for renal artery stenosis and may need to order renin and aldosterone levels as well. Dyspnea Resolved DM2 (diabetes mellitus, type 2) Accu-Cheks, sliding scale insulin. Will adjust as needed HTN (hypertension) DVT prophylaxis: Lovenox. GI prophylaxis: Protonix Diet: Renal Disposition: Pending symptomatic treatment. Pending nephrology consultation.
[2018-08-21] MEDS: INSULIN -REGULAR HUMAN 50 UNIT/0.5 ML ML SQ SCH ×4 (07:30→20:24)
[2018-08-21] MEDS: POTASSIUM CL SA 10 MEQ TAB PO SCH (08:21)
[2018-08-21] MEDS: ENOXAPARIN 30 MG/0.3 ML SQ SCH (08:21)
[2018-08-21] MEDS: AMLODIPINE 10 MG TAB PO SCH (08:21)
[2018-08-21] MEDS: ASPIRIN EC 81 MG TAB PO SCH (08:22)
[2018-08-21] MEDS: LISINOPRIL 20 MG TAB PO SCH (08:22)
[2018-08-21] MEDS: FUROSEMIDE 40 MG/4 ML VIAL IV SCH ×2 (08:23→17:37)
[2018-08-21] MEDS: METOPROLOL TAR 50 MG TAB PO SCH ×2 (09:00→20:24)
--- NOTE | 2018-08-21 17:33 | P.PN ---
Subjective Date of Service: 08/21/18 Chief Complaint: shortness of breath Subjective: No new changes, No C/O voiced, Tolerating diet, Ambulating, Improving Patient seen and examined at bedside. No family at bedside. Case discussed with nursing staff. Review of Systems As noted Physical Examination - Vital Signs Temperature: 98.6 F Blood Pressure: 128/56 Pulse: 56 Respirations: 20 Pulse Ox (%): 97 - Physical Exam General: Alert, In no apparent distress, Oriented x3 HEENT: Atraumatic, PERRLA, EOMI Neck: Supple, JVD not distended Respiratory: Normal air movement, Crackles/rales Cardiovascular: Regular rate/rhythm, Normal S1 S2, Edema (1+ bilaterally) Gastrointestinal: Normal bowel sounds, No tenderness Musculoskeletal: No tenderness Integumentary: No rashes Neurological: Normal speech, Normal tone, Normal affect Lymphatics: No axilla or inguinal lymphadenopathy Assessment And Plan - Plan Acute on chronic Congestive heart failure, diastolic, left, w/preserved LV function, NYHA class 4 Echocardiogram will be reviewed Gentle diuresing Strict I's and O's Daily weights Malignant hypertension Improved blood pressures. Cont HERMAN inhibitor. May add hydrochlorothiazide to regimen. Proteinuria Hypoalbuminemia Edema DC amlodipine and continue low-dose beta-niurka 24 hr urine for protein: ? Nephrotic syndrome. May need outpatient evaluation for proteinuria may need to do a renal Doppler to check for renal artery stenosis and may need to order renin and aldosterone levels as well. Dyspnea Resolved DM2 (diabetes mellitus, type 2) Accu-Cheks, sliding scale insulin. Will adjust as needed HTN (hypertension) DVT prophylaxis: Lovenox. GI prophylaxis: Protonix Diet: Renal Disposition: Pending symptomatic treatment. Likely discharge tomorrow
[2018-08-22 05:41] VITALS: BMI 31.6
[2018-08-22] MEDS: INSULIN -REGULAR HUMAN 50 UNIT/0.5 ML ML SQ SCH ×2 (07:30→11:30)
[2018-08-22] MEDS: POTASSIUM CL SA 10 MEQ TAB PO SCH (08:49)
[2018-08-22] MEDS: ASPIRIN EC 81 MG TAB PO SCH (08:49)
[2018-08-22] MEDS: LISINOPRIL 20 MG TAB PO SCH (08:49)
[2018-08-22] MEDS: FUROSEMIDE 40 MG/4 ML VIAL IV SCH (08:50)
[2018-08-22] MEDS: ENOXAPARIN 30 MG/0.3 ML SQ SCH (08:50)
[2018-08-22] MEDS: METOPROLOL TAR 50 MG TAB PO SCH (08:51)
[2018-08-22 09:42] VITALS: TEMP 98
[2018-08-22 10:31] LABS: Absolute Lymphocytes (CBC) 1.1 K/uL (0.7-4.9); Absolute Monocytes 0.4 K/uL (0.1-1.3); Absolute Neutrophil 2.8 K/uL (1.8-8.0); Basophils % 1.4 % (0-1.3); Eosinophils % 7.6 % (0-4.4); Hematocrit 28.1 % (36.0-45.0); Lymphocytes % 23.2 % (15.3-44.8); MCH 31.8 pg (27.0-35.0); MCV 89.2 fL (80-100); MPV 7.8 fL (7.6-11.3); Monocytes % 8.7 % (3.3-12.3); RBC Red Blood Cell Count 3.15 M/uL (3.86-4.86)
[2018-08-22 10:51] LABS: Albumin 2.5 g/dL (3.4-5.0); Bilirubin Total 0.2 mg/dL (0.2-1.0); Protein, Total 5.9 g/dL (6.4-8.2)
[2018-08-22 13:56] VITALS: BP 165/71
[2018-08-22 14:29] VITALS: O2SAT 95
--- NOTE | 2018-08-22 18:02 | P.DS ---
Admission Date: 08/19/18 Discharge Date: 08/22/18 Disposition: ROUTINE DISCHARGE Discharge Condition: GOOD Reason for Admission: shortness of breath Brief History of Present Illness: Patient is a 68-year-old female who came into the hospital with difficulty breathing. Patient was in the hospital a week ago with similar complaints. She tells me she decided to leave early because she had family come in for the . She was not really feeling well but she told them she was because she had to go home. Since she has been home she slowly been progressively worsening. Her respiratory status has continued to worsen. Patient came into the hospital for further evaluation. In the emergency room patient's chest x-ray showed pulmonary edema. She does have some protein urea and some kidney disease. Probably need to check a 24 hr urine for protein as her albumin is very low. We should discontinue her Norvasc and continue her lisinopril. We probably need to check a renal Doppler as well. I will go ahead and consult Nephrology for further evaluation and to assist in her care. Her blood pressure is significantly elevated. This could be related to elevated renin aldosterone levels. She may also have diastolic dysfunction from poorly controlled blood pressure. Hospital Course: Acute on chronic Congestive heart failure, diastolic, left, w/preserved LV function, NYHA class 4 She was diuresed with IV Lasix twice a day. Her symptoms gradually improved, resolved at the time of discharge. She was educated and counseled on how to take her medications at the time of discharge, fluid restriction to 1.5 L a day. She was also discharged with instructions to follow up with her primary care physician in 1 week At the time of discharge, she was symptom free, hemodynamically stable, breathing well and satting well on room air. Dyspnea Resolved DM2 (diabetes mellitus, type 2) Accu-Cheks, sliding scale insulin. Will adjust as needed. No medication changes at the time of discharge HTN (hypertension) No medication changes at the time of discharge. Follow up with nephrology as outpatient. Vital Signs/Physical Exam: Temp Pulse Resp BP Pulse Ox 98.0 F 52 20 165/71 H 96 08/22/18 12:00 08/22/18 12:00 08/22/18 12:00 08/22/18 12:00 08/22/18 12:00 General: Alert, In no apparent distress, Oriented x3 HEENT: Atraumatic, PERRLA, EOMI Neck: Supple, JVD not distended Respiratory: Clear to auscultation bilaterally, Normal air movement Cardiovascular: Regular rate/rhythm, Normal S1 S2 Gastrointestinal: Normal bowel sounds, No tenderness Musculoskeletal: No tenderness Integumentary: No rashes Neurological: Normal speech, Normal tone, Normal affect Lymphatics: No axilla or inguinal lymphadenopathy Laboratory Data at Discharge: WBC 4.7 K/uL (4.3-10.9) D 08/22/18 10:19 Hgb 10.0 g/dL (12.0-15.0) L 08/22/18 10:19 Hct 28.1 % (36.0-45.0) L 08/22/18 10:19 Plt Count 183 K/uL (152-406) 08/22/18 10:19 Sodium 139 mmol/L (136-145) 08/22/18 10:19 Potassium 4.0 mmol/L (3.5-5.1) 08/22/18 10:19 BUN 33 mg/dL (7-18) H 08/22/18 10:19 Creatinine 1.70 mg/dL (0.55-1.3) H 08/22/18 10:19 Glucose 245 mg/dL (74-106) H 08/22/18 10:19 Phosphorus 4.0 mg/dL (2.5-4.9) 08/20/18 05:30 Magnesium 2.0 mg/dL (1.8-2.4) D 08/20/18 05:30 Total Bilirubin 0.2 mg/dL (0.2-1.0) 08/22/18 10:19 AST 33 U/L (15-37) 08/22/18 10:19 ALT 33 U/L (12-78) 08/22/18 10:19 Alkaline Phosphatase 79 U/L (45-117) 08/22/18 10:19 Triglycerides 65 mg/dL (<150) 08/20/18 05:30 Cholesterol 122 mg/dL (<200) 08/20/18 05:30 HDL Cholesterol 61 mg/dL (40-60) H 08/20/18 05:30 Cholesterol/HDL Ratio 2.00 08/20/18 05:30 Lipase 285 U/L (73-393) 08/19/18 22:15 Home Medications: Amlodipine [Norvasc*] 10 mg PO DAILY 08/09/18 Glimepiride [Amaryl*] 2 mg PO DAILY 08/09/18 Memantine HCl [Memantine HCl ER] 28 mg PO DAILY 08/09/18 Furosemide [Lasix] 40 mg PO BID #60 tablet 08/14/18 Potassium Chloride 20 meq PO DAILY #30 tablet.er 08/14/18 Lisinopril 40 mg PO DAILY 08/19/18 Patient Discharge Instructions: Please follow up with the primary care physician in 1 week. Please follow up the kidney specialist in 2 weeks. Information provided to you. please remember to take medications as prescribed Diet: Renal Activity: Ad bob Followup: Nika Barnch MD [ACTIVE - CAN ADMIT] - Joaquín Friend DO [Primary Care Provider] - (call to schedule appointment) Physician Review: Patient Assessed, Agree with Above Assessment and Plan Time spent managing pt's care (in minutes): 55
== END 2018-08-22 17:50 | disposition home or self-care (01) | DRG 293 ==
LOC: ER 21:34 → ERHOLD 23:03 → 4TH 08-20 00:18
PROVIDERS: ADMIT Hospitalist; ATTEND Hospitalist
DX: I11.0 Hypertensive heart disease with heart failure (principal); I50.33 Acute on chronic diastolic (congestive) heart failure; E11.9 Type 2 diabetes mellitus without complications; R80.9 Proteinuria, unspecified; E88.09 Other disorders of plasma-protein metabolism, not elsewhere classified; E78.5 Hyperlipidemia, unspecified
CPT/HCPCS: 36415; 71045; 80048; 80053; 80061; 80076; 81003; 81015; 82962; 83690; 83735; 83880; 84100; 84484; 85025; 93005; 96374; 99285; J1650; J1940

== ENCOUNTER 2019-11-22 08:37 | Observation (INO) | payer MEDICARE ==
--- OUTSIDE RECORDS SUMMARY | 2019-11-22 08:42 | XMS REPORT ---
:1950 Author Organization [employer] Care Team Providers Name Role Phone Tiara Friedman Provider Role Unavailable Allergies, Adverse Reactions, Alerts Substance Reaction Event Type N.K.D.A. 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 chronic kidney disease Problem Other specified diabetes mellitus E13.341 Active with severe nonproliferative diabetic retinopathy with macular edema Assessment Essential hypertension I10 Active Problem Type 2 diabetes mellitus with E11.22 Active diabetic chronic kidney disease Problem Accelerated essential hypertension I10 Active Problem Proteinuria, unspecified type R80.9 Active Problem Background diabetic macular edema E11.311 Active Problem Dementia without behavioral F03.90 Active disturbance, unspecified dementia type Problem Anemia, unspecified type D64.9 Active Problem Urine incontinence R32 Active Problem Controlled type 2 diabetes mellitus E11.40 Active with neuropathy Problem Essential hypertension I10 Active Problem Pessary maintenance Z46.89 Active Problem Anemia associated with chronic D63.1 Active renal failure Problem Asymptomatic microscopic hematuria R31.21 Active Problem Chronic kidney disease, stage IV N18.4 Active (severe) Problem Acute on chronic diastolic I50.33 Active congestive heart failure Problem Benign essential HTN I10 Active Problem Cough R05 Active Problem Onychomycosis B35.1 Active Problem Vitamin D deficiency E55.9 Active Problem Hypercholesteremia E78.00 Active Problem Type 2 diabetes mellitus with E11.311 Active diabetic retinopathy and macular edema Problem Dementia, 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 Active Problem Alopecia L65.9 Active Medications Medication Code Code Instructions Start End Status Dosage System Date Date Vitamin D [facility] 05353010083 2000 UNIT Active 2 capsules Orally Once a (4,000 day IU--OTC) Memantine HCl ER [facility] 91700111038 28MG Orally Inactive 1 capsule Once daily Vitamin D3 ND 76310946468 1000 UNIT Active 1 capsule Orally Once a day Aspir-81 [facility] 07554301997 81 MG Orally Active 1 tablet Once a day Carvedilol [facility] 35893242289 3.125 MG Inactive 1 tablet Orally Twice a day Amlodipine [facility] 24074278037 10 MG Orally Active 1 tablet Besylate Once a day Lisinopril [facility] 45322916027 40 MG Active TAKE ONE TABLET BY MOUTH ONCE DAILY Klor-Con M20 [facility] 72943766846 20 MEQ Orally Active 1 tablet Once a day with food Spironolactone [facility] 27301405986 25 MG Orally Active 1 tablet Furosemide [facility] 14921536336 40 MG Orally Active 1 tablet Once a day Lipitor [facility] 21049793563 40 MG Orally Active 1 tablet Once a day Glimepiride [facility] 00963239578 2 MG Orally Active 1 tablet Once a day with breakfast or the first main meal of the day Namenda XR [facility] 97697546780 28 MG Orally Nov 12, Active 1 capsule Once a day 2017 Metoprolol [facility] 13120660673 50 MG Orally Active 1 tablet Tartrate Twice a day with food Amaryl [facility] 86149975069 2 MG Orally Active 1 tablet Once a day with breakfast or the first main meal of the day Results No Known Results Summary Purpose [employer] Submission
[2019-11-22] MEDS ORDERED: ALBUTEROL 2.5 MG/3 ML NEB SOL ONE (09:20)
[2019-11-22] MEDS ORDERED: IPRATROPIUM BROM 0.5MG/2.5ML ONE (09:20)
[2019-11-22 09:38] LABS: Absolute Lymphocytes (CBC) 1.1 K/uL (0.7-4.9); Basophils % 1.2 % (0-1.3); Hematocrit 30.7 % (36.0-45.0); Lymphocytes % 18.7 % (15.3-44.8); MPV 7.6 fL (7.6-11.3); RBC Red Blood Cell Count 3.39 M/uL (3.86-4.86)
[2019-11-22 09:50] LABS: Albumin 3.5 g/dL (3.4-5.0); Bilirubin Direct 0.2 mg/dL (0-0.2); Bilirubin Total 0.5 mg/dL (0.2-1.0); Magnesium 2.9 mg/dL (1.8-2.4); Potassium 4.1 mmol/L (3.5-5.1); Protein, Total 7.8 g/dL (6.4-8.2); Troponin (Emerg Dept Use Only) 0.12 ng/mL (0.0-0.045)
--- NOTE | 2019-11-22 10:00 | RAD REPORT ---
EXAM DESCRIPTION: RAD - Chest Single View - 11/22/2019 9:43 am CLINICAL HISTORY: COPD;SOB COMPARISON: July 2018 TECHNIQUE: AP portable chest image was obtained 11/22/2019 9:43 am . FINDINGS: Interstitial and patchy alveolar opacities are present throughout both lung bridges with a moderate left pleural effusion. Cardiomegaly is present similar to comparison. There is vascular engo rgement present. No pneumothorax. No acute bony abnormality seen. No acute aortic findings suspected. IMPRESSION: Mild to moderate CHF/volume overload pattern with moderate left pleural effusion.
[2019-11-22] MEDS ORDERED: FUROSEMIDE 100 MG/10 ML VIAL IV ONE (10:35)
--- NOTE | 2019-11-22 11:06 | RAD REPORT ---
EXAM DESCRIPTION: CT - Chest For Pe Angio - 11/22/2019 10:38 am CLINICAL HISTORY: sob COMPARISON: 2017 TECHNIQUE: Dynamically enhanced axial 3 mm thick images of the chest were obtained during administra tion of <100> mL Isovue 370 IV contrast. Coronal and oblique reconstruction images were generated and reviewed. Exam utilizes a protocol for optimal evaluation of pulmonary arterial tree. The patient june s an elevated creatinine. The referring physician felt that the benefits of diagnosing a pulmonary em bolus outweighed the risks of giving the contrast Maximum intensity projections 3D imaging was utilized All CT scans are performed using dose optimization technique as appropriate and may include automated exposure control or mA/KV adjustment according to patient size. FINDINGS: A pulmonary embolus is not seen. A thoracic aortic aneurysm is not noted. A bovine aorta Small to moderate bilateral pleural effusions. . A pericardial effusion is not seen. Bibasilar atelectasis. Mild interstitial pulmonary edema The heart is enlarged IMPRESSION: Negative for a pulmonary embolism. CHF
--- NOTE | 2019-11-22 11:25 | EKG ---
Test Date: 2019-11-22 Test Time: 10:17:48 Health Claims Examiner: UZAIR MEASUREMENT RESULTS: Intervals: Rate: 64 NM: QRSD: 88 QT: 448 QTc: 462 [place]: P: NM: QRS: 22 T: 78 INTERPRETIVE STATEMENTS: Poor data quality Sinus rhythm Nonspecific ST abnormality Abnormal ECG Compared to ECG 08/19/2018 22:17:54 ST (T wave) deviation now present Myocardial infarct finding no longer present Electronically Signed On 11-22-19 11:25:35 [employer] DISPATCHER by Hector Snow
--- NOTE | 2019-11-22 11:34 | EDPHYS ---
Physician Documentation [facility] Name: Diya Hassan Age: 69 yrs Sex: Female : 1950 Arrival Date: 11/22/2019 Time: 08:38 Bed 7 Private MD: ED Physician Jordan Valverde HPI: 11/22 11:39 This 69 yrs old Female presents to ER via Ambulatory with complaints of kdr Shortness Of Breath. 11:39 The patient has shortness of breath at rest, with light activity. Onset: The kdr symptoms/episode began/occurred gradually, Wednesday. Duration: The symptoms are continuous, and are steadily getting worse. The patient's shortness of breath is aggravated by exertion, light activity, supine position. Associated signs and symptoms: Pertinent positives: This patient does not have any pertinent positive signs or symptoms associated with shortness of breath. Pertinent negatives: chest pain, diaphoresis, dizziness, fever, hemoptysis, loss of consciousness, visual changes. Severity of symptoms: At their worst the symptoms were mild moderate just prior to arrival, in the emergency department the symptoms are unchanged. The patient has not experienced similar symptoms in the past. The patient has not recently seen a physician. Historical: - Allergies: 08:49 NKA; hb - Home Meds: 08:49 amlodipine 10 mg tab [Active]; furosemide 40 mg Oral tab 1 tab 2 times per day hb [Active]; glimepiride 2 mg Oral tab 1 tab once daily [Active]; Klor-Con M20 20 mEq Oral TbTQ 1 tab once daily [Active]; lisinopril 40 mg Oral tab 1 tab once daily [Active]; memantine 28mg OD Oral [Active]; nitrofurantoin mon- mcr 100mg OD [Active]; - PMHx: 08:49 Diabetes - NIDDM; Hypertension; hb - PSHx: 08:49 None; hb - Immunization history:: Adult Immunizations up to date. - Coronavirus screen:: The patient has NOT traveled to [place] in the past 14 days. The patient has NOT had contact with known/suspected case of Coronavirus? Proceed with normal triage procedures. - Social history:: Smoking status: Patient denies any tobacco usage or history of. - Ebola Screening: : No symptoms or risks identified at this time. ROS: 11:39 Constitutional: Negative for fever, chills, and weight loss, Eyes: Negative for injury, kdr pain, redness, and discharge, Neck: Negative for injury, pain, and swelling, Cardiovascular: Negative for chest pain, palpitations, and edema, Abdomen/GI: Negative for abdominal pain, nausea, vomiting, diarrhea, and constipation, Back: Negative for injury and pain, : Negative for injury, bleeding, discharge, and swelling, MS/Extremity: Negative for injury and deformity, Skin: Negative for injury, rash, and discoloration, Neuro: Negative for headache, weakness, numbness, tingling, and seizure activity. Psych: Negative for depression, anxiety, suicide ideation, homicidal ideation, and hallucinations, Allergy/Immunology: Negative for hives, rash, and allergies, Endocrine: Negative for neck swelling, polydipsia, polyuria, polyphagia, and marked weight changes, Hematologic/Lymphatic: Negative for swollen nodes, abnormal bleeding, and unusual bruising. 11:39 Respiratory: Positive for dyspnea on exertion, shortness of breath. 11:39 Neuro: Positive for tremor, Right arm. Exam: 11:39 Constitutional: This is a well developed, well nourished patient who is awake, alert, kdr and in no acute distress. Head/Face: Normocephalic, atraumatic. Eyes: Pupils equal round and reactive to light, extra-ocular motions intact. Lids and lashes normal. Conjunctiva and sclera are non-icteric and not injected. Cornea within normal limits. Periorbital areas with no swelling, redness, or edema. ENT: Nares patent. No nasal discharge, no septal abnormalities noted. Tympanic membranes are normal and external auditory canals are clear. Oropharynx with no redness, swelling, or masses, exudates, or evidence of obstruction, uvula midline. Mucous membranes moist. Chest/axilla: Normal chest wall appearance and motion. Nontender with no deformity. No lesions are appreciated. Cardiovascular: Regular rate and rhythm with a normal S1 and S2. No gallops, murmurs, or rubs. Normal PMI, no JVD. No pulse deficits. Abdomen/GI: Soft, non-tender, with normal bowel sounds. No distension or tympany. No guarding or rebound. No evidence of tenderness throughout. Back: No spinal tenderness. No costovertebral tenderness. Full range of motion. Skin: Warm, dry with normal turgor. Normal color with no rashes, no lesions, and no evidence of cellulitis. MS/ Extremity: Pulses equal, no cyanosis. Neurovascular intact. Full, normal range of motion. Psych: Awake, alert, with orientation to person, place and time. Behavior, mood, and affect are within normal limits. 11:39 Respiratory: mild respiratory distress is noted, Respirations: pursed lip breathing, that is mild, shallow respirations, tachypnea, Breath sounds: rales, that are mild, are scattered, are located in both bases. Vital Signs: 08:48 BP 191 / 78; Pulse 59; Resp 26; Temp 97.8; Pulse Ox 96% ; Weight 72.12 kg; Pain 0/10; hb 09:32 BP 161 / 62; Pulse 60; Resp 18; Pulse Ox 100% ; ll1 09:56 BP 161 / 62; Pulse 66; Resp 18; Pulse Ox 97% ; ll1 10:52 BP 155 / 51; Pulse 65; Resp 18; Pulse Ox 95% ; ll1 12:54 BP 159 / 67; Pulse 62; Resp 21; Temp 98.5; Pulse Ox 95% on R/A; Pain 0/10; ll1 09:32 During breathing treatment. ll1 MDM: 11:32 Patient medically screened. kdr 11:39 Data reviewed: vital signs, nurses notes, lab test result(s), radiologic studies. kdr Counseling: I had a detailed discussion with the patient and/or guardian regarding: the historical points, exam findings, and any diagnostic results supporting the discharge/admit diagnosis, lab results, radiology results, the need for further work-up and treatment in the hospital. 11/22 09:15 Order name: Basic Metabolic Panel; Complete Time: 10:16 kdr 11/22 09:15 Order name: CBC with Diff; Complete Time: 10:16 [facility] 11/22 09:15 Order name: LFT's; Complete Time: 10:16 kdr 11/22 09:15 Order name: Magnesium; Complete Time: 10:16 [facility] 11/22 09:15 Order name: NT PRO-BNP; Complete Time: 10:16 [facility] 11/22 09:15 Order name: PT-INR; Complete Time: 10:16 [facility] 11/22 09:15 Order name: Troponin (emerg Dept Use Only); Complete Time: 10:16 [facility] 11/22 09:15 Order name: XRAY Chest (1 view); Complete Time: 10:16 [facility] 11/22 09:15 Order name: EKG; Complete Time: 09:17 kdr 11/22 09:15 Order name: DD; Complete Time: 10:16 kdr 11/22 09:19 Order name: Flu; Complete Time: 10:16 hb 11/22 10:16 Order name: CT Chest For PE Angio; Complete Time: 11:25 [facility] 11/22 09:15 Order name: Cardiac monitoring; Complete Time: 09: kdr 11/22 09:15 Order name: EKG - Nurse/Tech; Complete Time: 11: [facility] 11/22 09:15 Order name: IV Saline Lock; Complete Time: : kdr 11/22 09:15 Order name: Labs collected and sent; Complete Time: : [facility] 11/22 09:15 Order name: O2 Per Protocol; Complete Time: : [facility] 11/22 09:15 Order name: O2 Sat Monitoring; Complete Time: 09:20 [facility] EC:22 Rate is 64 beats/min. Rhythm is regular, Sinus Rhythm with No ectopy. QRS [place] is kdr Normal. Clinical impression: NSR w/ Non-specific ST/T Changes. Administered Medications: 09:20 Drug: Albuterol - atroVENT (3:1) (2.5 mg - 0.5 mg) 3 ml Route: Nebulizer; hb 09:58 Follow up: Response: Other; RASS: Alert and Calm (0); SOB better now. ll1 10:38 Follow up: Response: No adverse reaction ph 10:51 Drug: Lasix 60 mg Route: IVP; Site: right antecubital; ll1 11:51 Follow up: Response: No adverse reaction ll1 Disposition: 11/22/19 11:32 Hospitalization ordered by Musa Jordan for Inpatient Admission. Preliminary diagnosis is Acute systolic (congestive) heart failure. - Bed requested for Telemetry/MedSurg (Inpatient). - Status is Inpatient Admission. ll1 - Condition is Fair. - Problem is an acute exacerbation. - Symptoms have improved. Signatures: Dispatcher [employer] Valerie Moore RN RN Jordan Valverde MD MD [facility] Bethanie Greene RN RN Rosaura Maynard RN RN ll1 Hui Barber RN Corrections: (The following items were deleted from the chart) 12:49 11:32 Hospitalization Ordered by Musa Jordan DO for Inpatient Admission. Preliminary dw diagnosis is Acute systolic (congestive) heart failure. Bed requested for Telemetry/MedSurg (Inpatient). Status is Inpatient Admission. Condition is Fair. Problem is an acute exacerbation. Symptoms have improved. kdr 14:06 12:49 11/22/2019 11:32 Hospitalization Ordered by Musa Jordan DO for Inpatient ll1 Admission. Preliminary diagnosis is Acute systolic (congestive) heart failure. Bed requested for Telemetry/MedSurg (Inpatient). Status is Inpatient Admission. Condition is Fair. Problem is an acute exacerbation. Symptoms have improved. dw
--- NOTE | 2019-11-22 11:34 | ER ---
Nurse's Notes [facility] Name: Diya Hassan Age: 69 yrs Sex: Female : 1950 Arrival Date: 11/22/2019 Time: 08:38 Bed 7 Private MD: Diagnosis: Acute systolic (congestive) heart failure Presentation: 11/22 08:49 Presenting complaint: Patient states: SOB x 1 week, denies cough, pain, or fever, also ph denies N/V/D, reports being exposed to flu in [place] last week. Transition of care: patient was not received from another setting of care. Onset of symptoms was November 22, 2019. Risk Assessment: Do you want to hurt yourself or someone else? Patient reports no desire to harm self or others. Initial Sepsis Screen: Does the patient meet any 2 criteria? No. Patient's initial sepsis screen is negative. Does the patient have a suspected source of infection? No. Patient's initial sepsis screen is negative. Care prior to arrival: None. 08:49 Method Of Arrival: Ambulatory ph 08:49 Acuity: RJ 2 ph Historical: - Allergies: 08:49 NKA; hb - Home Meds: 08:49 amlodipine 10 mg tab [Active]; furosemide 40 mg Oral tab 1 tab 2 times per day hb [Active]; glimepiride 2 mg Oral tab 1 tab once daily [Active]; Klor-Con M20 20 mEq Oral TbTQ 1 tab once daily [Active]; lisinopril 40 mg Oral tab 1 tab once daily [Active]; memantine 28mg OD Oral [Active]; nitrofurantoin mon- mcr 100mg OD [Active]; - PMHx: 08:49 Diabetes - NIDDM; Hypertension; hb - PSHx: 08:49 None; hb - Immunization history:: Adult Immunizations up to date. - Coronavirus screen:: The patient has NOT traveled to [place] in the past 14 days. The patient has NOT had contact with known/suspected case of Coronavirus? Proceed with normal triage procedures. - Social history:: Smoking status: Patient denies any tobacco usage or history of. - Ebola Screening: : No symptoms or risks identified at this time. Screenin:50 Abuse screen: Denies threats or abuse. Denies injuries from another. Nutritional hb screening: No deficits noted. Tuberculosis screening: No symptoms or risk factors identified. Fall Risk None identified. Assessment: 09:28 Respiratory: Airway. ll1 09:28 General: Appears uncomfortable, Behavior is calm, cooperative. Cardiovascular: Heart ll1 tones. Cardiovascular: Rhythm is sinus rhythm. Respiratory: Reports shortness of breath at night, worse when laying flat Airway is patent Trachea midline Respiratory effort is even, unlabored, Respiratory pattern is regular, Patient reports SOB at times. Breath sounds are clear bilaterally. Onset: The symptoms/episode began/occurred gradually, the patient has mild shortness of breath. GI: No deficits noted. : No deficits noted. 09:58 Reassessment: Patient and/or family updated on plan of care and expected duration. Pain ll1 level reassessed. Patient is alert, oriented x 3, equal unlabored respirations, skin warm/dry/pink. States the breathing treatment helped a little. Repositioned in bed. Pain: Denies pain. 10:53 Reassessment: No changes from previously documented assessment. Patient and/or family ll1 updated on plan of care and expected duration. Pain level reassessed. Patient is alert, oriented x 3, equal unlabored respirations, skin warm/dry/pink. Bedside commode placed at bedside. 11:55 Reassessment: No changes from previously documented assessment. Patient and/or family ll1 updated on plan of care and expected duration. Pain level reassessed. Patient is alert, oriented x 3, equal unlabored respirations, skin warm/dry/pink. 12:55 Reassessment: Patient appears in no apparent distress at this time. Patient and/or ll1 family updated on plan of care and expected duration. Pain level reassessed. Patient is alert, oriented x 3, equal unlabored respirations, skin warm/dry/pink. Informed of room number 209. No complaints at this time. States she is breathing better. Vital Signs: 08:48 BP 191 / 78; Pulse 59; Resp 26; Temp 97.8; Pulse Ox 96% ; Weight 72.12 kg; Pain 0/10; hb 09:32 BP 161 / 62; Pulse 60; Resp 18; Pulse Ox 100% ; ll1 09:56 BP 161 / 62; Pulse 66; Resp 18; Pulse Ox 97% ; ll1 10:52 BP 155 / 51; Pulse 65; Resp 18; Pulse Ox 95% ; ll1 12:54 BP 159 / 67; Pulse 62; Resp 21; Temp 98.5; Pulse Ox 95% on R/A; Pain 0/10; ll1 09:32 During breathing treatment. ll1 ED Course: 08:38 Patient arrived in ED. as 08:38 Jordan Valverde MD is Attending Physician. kdr 08:48 Hui Barber, RN is Primary Nurse. ph 08:48 Arm band placed on. hb 08:50 Patient has correct armband on for positive identification. Placed in gown. Bed in low hb position. Call light in reach. Side rails up X 1. 08:51 Triage completed. ph 09:15 Inserted saline lock: 20 gauge in right antecubital area, using aseptic technique. ll1 Blood collected. 09:50 XRAY Chest (1 view) In Process Unspecified. EDMS 10:47 CT Chest For PE Angio In Process Unspecified. EDMS 11:32 Musa Jordan DO is Hospitalizing Provider. kdr 13:07 No provider procedures requiring assistance completed. ll1 13:07 Patient admitted, IV remains in place. ll1 Administered Medications: 09:20 Drug: Albuterol - atroVENT (3:1) (2.5 mg - 0.5 mg) 3 ml Route: Nebulizer; hb 09:58 Follow up: Response: Other; RASS: Alert and Calm (0); SOB better now. ll1 10:38 Follow up: Response: No adverse reaction ph 10:51 Drug: Lasix 60 mg Route: IVP; Site: right antecubital; ll1 11:51 Follow up: Response: No adverse reaction ll1 Intake: Outcome: 11:32 Decision to Hospitalize by Provider. kdr 13:05 Admitted to Tele accompanied by tech, family with patient, via stretcher, room 209, ll1 Report called to Cheng Martinez 13:05 Condition: improved 13:05 Instructed on the need for admit. 14:06 Patient left the ED. ll1 Signatures: Dispatcher [employer] EDMS Jordan Valverde MD MD kdr Dafne Gonzales as Hui Barber, RN RN Bethanie Greene RN RN Rosaura Maynard RN RN 1
--- NOTE | 2019-11-22 12:38 | P.HP ---
Certification for Inpatient Patient admitted to: Observation With expected LOS: <2 Midnights Patient will require the following post-hospital care: None Practitioner: I am a practitioner with admitting privileges, knowledge of patient current condition, hospital course, and medical plan of care. Services: Services provided to patient in accordance with Admission requirements found in Title 42 Section 412.3 of the Code of Federal Regulations Patient History Date of Service: 11/22/19 Primary Care Provider: Dr. Montana Reason for admission: Shortness of breath, edema History of Present Illness: 69-year-old female with history of diabetes, hypertension. Patient presented with increasing shortness of breath and edema to the lower extremity. Patient reports increasing shortness of breath and edema to the lower extremities over the past several days. Shortness of breath has been getting worse. She came to the ER for further evaluation. She denies any nausea, vomiting, chest pain. She denies any fever, chills. In the ER patient evaluated. Vital signs stable. Room-air saturations within normal range. Chest x-ray showed pulmonary edema chest negative for pulmonary embolism but evidence of CHF noted. BNP elevated. Troponin 0.12. White count 5.6, hemoglobin 10.6. Sodium 140, potassium 4.1. BN of 26, creatinine 1.9 with a GFR 25. Glucose 105. Patient was given IV Lasix in the emergency room. Patient admitted for observation. When I saw the patient ER, she appeared stable. She does not appear in any respiratory distress. Prior echocardiogram reviewed. Diastolic dysfunction noted in the past. She is not taking any diuretic medication. She takes multiple medications for hypertension and diabetes. Allergies carrot Allergy (Verified 08/21/18 12:31) Itching/Hives/Rash Home medications list reviewed: Yes Home Medications: Amlodipine [Norvasc*] 10 mg PO DAILY 08/09/18 Glimepiride [Amaryl*] 2 mg PO DAILY 08/09/18 Memantine HCl [Memantine HCl ER] 28 mg PO DAILY 08/09/18 Furosemide [Lasix] 40 mg PO BID #60 tablet 08/14/18 Potassium Chloride 20 meq PO DAILY #30 tablet.er 08/14/18 lisinopriL [Lisinopril] 40 mg PO DAILY 08/19/18 - Past Medical/Surgical History Diabetic: Yes -: Hypertension -: Diabetes mellitus type 2 non-insulin dependent -: Hyperlipidemia -: CHF, diastolic dysfunction -: Obesity -: Cholecystectomy -: Appendectomy -: Hysterectomy Psychosocial/ Personal History: Patient is - Family History Family History: Reviewed- Non-Contributory - Family History Father -: Cancer Mother -: Stroke Aunt -: Cancer Notes: Ovarian - Social History Smoking Status: Never smoker Alcohol use: No CD- Drugs: No Caffeine use: Yes Place of Residence: Home Review of Systems General: Weakness, As per HPI Eyes: Unremarkable ENT: Unremarkable Respiratory: Shortness of Breath, SOB with Excertion, As per HPI Cardiovascular: Edema, As per HPI Gastrointestinal: Unremarkable Genitourinary: Unremarkable Musculoskeletal: Pedal edema, As per HPI Integumentary: Unremarkable Neurological: Unremarkable Lymphatics: Unremarkable Physical Examination - Physical Exam General: Alert, In no apparent distress, Oriented x3, Cooperative HEENT: Atraumatic, Normocephalic, PERRLA, Mucous membr. moist/pink Neck: Supple Respiratory: Crackles/rales (Crackles to the bases bilateral) Cardiovascular: Normal pulses, Regular rate/rhythm Gastrointestinal: Normal bowel sounds, Soft and benign, Non-distended, No tenderness, No masses, No rebound, No guarding Musculoskeletal: No tenderness, No warmth Integumentary: Tenderness/swelling (1 to 2+ pitting edema to the lower extremities bilateral) Neurological: Normal speech, Normal strength at 5/5 x4 extr, Normal tone, Normal affect - Studies Laboratory Data (last 24 hrs) 11/22/19 09:15: PT 11.8, INR 1.00 11/22/19 09:15: WBC 5.6, Hgb 10.6 L, Hct 30.7 L, Plt Count 213 11/22/19 09:15: Sodium 140, Potassium 4.1, BUN 26 H, Creatinine 1.99 H, Glucose 105, Magnesium 2.9 H, Total Bilirubin 0.5, AST 17, ALT 15, Alkaline Phosphatase 100 Microbiology Data (last 24 hrs): 11/22/19 09:20 Nasopharnyx Influenza Type A Antigen Screen - Final 11/22/19 09:20 Nasopharnyx Influenza Type B Antigen Screen - Final Assessment and Plan - Plan Impression: Shortness of breath, edema secondary to acute on chronic diastolic CHF Hypertension Diabetes mellitus type 2 [id number] Chronic renal disease stage II Plan: Shortness of breath, edema secondary to acute on chronic diastolic CHF: Patient be admitted for further treatment and observation. Will start IV Lasix 40 mg twice daily. Will teach on a 1500 cc per day fluid restriction. Will monitor input and output closely. Monitor daily weight. Will check echocardiogram to evaluate for underlying CHF. Will monitor cardiac enzymes and telemetry. Will consult cardiology for further recommendation. Anticipate discharge in the next 24 hr with clinical improvement. Patient will require diuretic therapy. Patient on DVT prophylaxis-heparin. Hypertension: Will hold Norvasc his this may increase edema. Will continue with beta-niurka therapy-metoprolol. Will further adjust appropriately. Diabetes mellitus type 2 [id number]: Check A1c. Will provide insulin sliding scale. Will discontinue metformin as she takes at home. Will hold off glimepiride at this time. Patient will likely require further adjustment in medication at discharge. Chronic renal disease stage II: Will check renal ultrasound. Discontinue metformin. Patient may require nephrology evaluation as an outpatient. Discharge Plan: Home Plan to discharge in: 24 Hours - Advance Directives Does patient have a Living Will: No Does patient have a Durable POA for Healthcare: No - Code Status/Comfort Care Code Status Assessed: Yes (Patient is full code) Time Spent Managing Pts Care (In Minutes): 55
[2019-11-22] MEDS ORDERED: ACETAMINOPHEN 500 MG TAB PO PRN (14:37)
[2019-11-22] MEDS ORDERED: ONDANSETRON 4 MG/2 ML VIAL IV PRN (14:37)
[2019-11-22 14:41] VITALS: BMI 32.2
[2019-11-22 16:05] LABS: CKMB Creatine Kinase MB < 1.0 ng/mL (0.3-3.6); Creatine Phosphokinase 67 U/L (26-192); Troponin I 0.12 ng/mL (0.0-0.045)
[2019-11-22] MEDS: INSULIN -REGULAR HUMAN 50 UNIT/0.5 ML ML SQ SCH ×2 (16:11→20:27)
[2019-11-22] MEDS: FUROSEMIDE 40 MG/4 ML VIAL IV SCH (16:59)
[2019-11-22] MEDS: METOPROLOL TAR 25 MG TAB PO SCH (17:00)
--- NOTE | 2019-11-22 18:17 | RAD REPORT ---
EXAM DESCRIPTION: US - Renal Ultrasound-Complete - 11/22/2019 5:36 pm CLINICAL HISTORY: Chronic renal disease COMPARISON: September 2019 FINDINGS: The right kidney measures 13 cm with an increased echotexture. The left kidney measures 11 cm with an increased echotexture. 9 millimeter cyst Hydronephrosis is not seen. Bladder was decompressed and poorly evaluated IMPRESSION: Increased renal echotexture consistent with parenchymal disease
[2019-11-22] MEDS: HEPARIN 5000 UNIT/ML 1 ML VIAL SQ SCH (20:24)
[2019-11-22] MEDS ORDERED: HYDRALAZINE HCL 20 MG/ML VIAL IV PRN (20:49)
[2019-11-22 21:31] VITALS: O2SAT 92
[2019-11-22 23:31] LABS: CKMB Creatine Kinase MB 1.1 ng/mL (0.3-3.6); Troponin I 0.12 ng/mL (0.0-0.045)
[2019-11-23] MEDS: METOPROLOL TAR 25 MG TAB PO SCH (05:28)
[2019-11-23 06:42] LABS: Absolute Lymphocytes (CBC) 1.5 K/uL (0.7-4.9); Basophils % 1.2 % (0-1.3); Hematocrit 27.9 % (36.0-45.0); RBC Red Blood Cell Count 3.12 M/uL (3.86-4.86)
[2019-11-23 07:28] LABS: Magnesium 2.4 mg/dL (1.8-2.4); Potassium 3.6 mmol/L (3.5-5.1); Thyroid Stimulating Hormone 1.64 uIU/mL (0.360-3.740)
[2019-11-23] MEDS: INSULIN -REGULAR HUMAN 50 UNIT/0.5 ML ML SQ SCH ×2 (07:30→11:30)
--- NOTE | 2019-11-23 07:58 | RAD REPORT ---
EXAM DESCRIPTION: Jade Pa And Lat (2 Views)11/23/2019 5:14 am CLINICAL HISTORY: Shortness of breath COMPARISON: November 22, 2019 FINDINGS: Small to moderate left and small right pleural effusions are unchanged. The interstitial lung opacities have resolved. The heart remains enlarged IMPRESSION: Improvement in CHF
[2019-11-23] MEDS ORDERED: ASPIRIN EC 81 MG TAB PO SCH (09:00)
[2019-11-23] MEDS: FUROSEMIDE 40 MG/4 ML VIAL IV SCH (09:01)
[2019-11-23] MEDS: HEPARIN 5000 UNIT/ML 1 ML VIAL SQ SCH (09:02)
--- NOTE | 2019-11-23 10:46 | P.DS ---
Admission Date: 11/22/19 Discharge Date: 11/23/19 Primary Care Provider: Dr. Montana; Nephrology-Dr. Rutherford Disposition: DC HOME/HOME HEALTH CARE Discharge Condition: GOOD Reason for Admission: Shortness of breath, edema Consultations: Cardiology-Dr. Du Procedures: CT Scan: FINDINGS: A pulmonary embolus is not seen. A thoracic aortic aneurysm is not noted. A bovine aorta Small to moderate bilateral pleural effusions. . A pericardial effusion is not seen. Bibasilar atelectasis. Mild interstitial pulmonary edema The heart is enlarged IMPRESSION: Negative for a pulmonary embolism. CHF Follow up CXR: COMPARISON: November 22, 2019 FINDINGS: Small to moderate left and small right pleural effusions are unchanged. The interstitial lung opacities have resolved. The heart remains enlarged IMPRESSION: Improvement in CHF ECHO: Obtained. Renal US: FINDINGS: The right kidney measures 13 cm with an increased echotexture. The left kidney measures 11 cm with an increased echotexture. 9 millimeter cyst Hydronephrosis is not seen. Bladder was decompressed and poorly evaluated IMPRESSION: Increased renal echotexture consistent with parenchymal disease Medical Problem List: Shortness of breath, edema secondary to acute on chronic diastolic CHF Hypertension Diabetes mellitus type 2 [id number] Chronic renal disease stage II Brief History of Present Illness: 69-year-old female with history of diabetes, hypertension. Patient presented with increasing shortness of breath and edema to the lower extremity. Patient reports increasing shortness of breath and edema to the lower extremities over the past several days. Shortness of breath has been getting worse. She came to the ER for further evaluation. She denies any nausea, vomiting, chest pain. She denies any fever, chills. In the ER patient evaluated. Vital signs stable. Room-air saturations within normal range. Chest x-ray showed pulmonary edema chest negative for pulmonary embolism but evidence of CHF noted. BNP elevated. Troponin 0.12. White count 5.6, hemoglobin 10.6. Sodium 140, potassium 4.1. BN of 26, creatinine 1.9 with a GFR 25. Glucose 105. Patient was given IV Lasix in the emergency room. Patient admitted for observation. When I saw the patient ER, she appeared stable. She does not appear in any respiratory distress. Prior echocardiogram reviewed. Diastolic dysfunction noted in the past. She is not taking any diuretic medication. She takes multiple medications for hypertension and diabetes. Hospital Course: Patient presented with shortness of breath and edema secondary to acute on chronic diastolic CHF. Previous echocardiogram showed ejection fraction of 60% . CT scan shows no pulmonary embolism. CT showed CHF pattern. Patient was admitted for treatment. Patient received IV diuretic therapy with improvement. Patient was taught about CHF. Cardiology consulted. Troponin was slightly elevated. No intervention was required. At discharge chest x-ray shows improvement. At discharge will recommend to continue a 1500 cc per day fluid restriction and low-salt diet. Recommend to monitor weight daily. If her weight increases by more than 5 lb she is to contact her PCP for further recommendation. Patient will continue with Lasix 40 mg daily. Further adjustment can be done by her PCP or cardiology. Recommend follow up with cardiology in 1-2 weeks to follow up hospitalization. Cardiology will make arrangements for outpatient stress test after that time. Home health will be arranged for close monitoring and CHF education. Patient with underlying hypertension. Medications have been adjusted during her stay. At discharge she will continue with Norvasc 5 mg daily and metoprolol 12.5 mg 1 pill twice daily. Recommend to maintain blood pressures less 150/80. Further adjustment can be done by her PCP. Patient with diabetes mellitus type 2 non-insulin dependent. A1c 5.6. Patient previously on metformin. Metformin was discontinued due to her chronic renal disease. At discharge she may continue with glimepiride 2 mg daily. Patient will be taught on hypoglycemia. Recommend to maintain blood sugars less 140 fasting and less than 200 after meals. Patient may need to hold her glimepiride medication if blood sugars remain below 100. Recommend follow up with her PCP to further monitor and address. Patient with chronic renal disease stage II. Renal ultrasound confirms this. Patient is seen by nephrology as an outpatient. Will recommend to discontinue metformin at this time. Patient may continue to follow up with nephrology as directed. Recommend future medications to be renally dosed. Recommend no further use of nonsteroidal anti-inflammatories. Vital Signs/Physical Exam: Temp Pulse Resp BP Pulse Ox 98 F 58 18 173/75 H 93 11/23/19 08:00 11/23/19 09:01 11/23/19 08:00 11/23/19 09:01 11/23/19 08:00 General: Alert, In no apparent distress, Oriented x3, Cooperative HEENT: Atraumatic Neck: Supple Respiratory: Clear to auscultation bilaterally, Normal air movement Cardiovascular: Normal pulses, Regular rate/rhythm Gastrointestinal: Normal bowel sounds, Soft and benign, Non-distended, No tenderness, No masses, No rebound, No guarding Musculoskeletal: No erythema, No tenderness, No warmth Integumentary: No tenderness/swelling, No erythema, No warmth, No cyanosis Neurological: Normal speech, Normal strength at 5/5 x4 extr, Normal tone, Normal affect Laboratory Data at Discharge: WBC 4.7 K/uL (4.3-10.9) D 11/23/19 05:49 Hgb 9.7 g/dL (12.0-15.0) L 11/23/19 05:49 Hct 27.9 % (36.0-45.0) L 11/23/19 05:49 Plt Count 196 K/uL (152-406) 11/23/19 05:49 PT 11.8 SECONDS (9.5-12.5) 11/22/19 09:15 INR 1.00 11/22/19 09:15 Sodium 139 mmol/L (136-145) 11/23/19 05:49 Potassium 3.6 mmol/L (3.5-5.1) 11/23/19 05:49 BUN 23 mg/dL (7-18) H 11/23/19 05:49 Creatinine 2.08 mg/dL (0.55-1.3) H 11/23/19 05:49 Glucose 82 mg/dL (74-106) 11/23/19 05:49 Magnesium 2.4 mg/dL (1.8-2.4) D 11/23/19 05:49 Total Bilirubin 0.5 mg/dL (0.2-1.0) 11/22/19 09:15 AST 17 U/L (15-37) 11/22/19 09:15 ALT 15 U/L (12-78) 11/22/19 09:15 Alkaline Phosphatase 100 U/L (45-117) 11/22/19 09:15 Troponin I 0.12 ng/mL (0.0-0.045) H 11/22/19 22:40 Triglycerides 129 mg/dL (<150) 11/23/19 05:49 Cholesterol 169 mg/dL (<200) 11/23/19 05:49 HDL Cholesterol 45 mg/dL (40-60) 11/23/19 05:49 Cholesterol/HDL Ratio 3.76 11/23/19 05:49 Home Medications: Glimepiride [Amaryl*] 2 mg PO DAILY 08/09/18 Amlodipine [Norvasc*] 5 mg PO DAILY #30 tab 11/23/19 Furosemide [Lasix] 40 mg PO DAILY #30 tab 11/23/19 Metoprolol Tartrate [Lopressor*] 12.5 mg PO BID 6AM 6PM #60 tab 11/23/19 New Medications: Amlodipine [Norvasc*] 5 mg PO DAILY #30 tab Furosemide [Lasix] 40 mg PO DAILY #30 tab Metoprolol Tartrate [Lopressor*] 12.5 mg PO BID 6AM 6PM #60 tab Patient Discharge Instructions: 1. Recommend follow up with her PCP in 1 week to follow up this hospitalization. 2. Patient presented with shortness of breath and edema secondary to acute on chronic diastolic CHF. Previous echocardiogram showed ejection fraction of 60%. CT scan shows no pulmonary embolism. CT showed CHF pattern. Patient was admitted for treatment. Patient received IV diuretic therapy with improvement. Patient was taught about CHF. Cardiology consulted. Troponin was slightly elevated. No intervention was required. At discharge chest x-ray shows improvement. At discharge will recommend to continue a 1500 cc per day fluid restriction and low-salt diet. Recommend to monitor weight daily. If her weight increases by more than 5 lb she is to contact her PCP for further recommendation. Patient will continue with Lasix 40 mg daily. Further adjustment can be done by her PCP or cardiology. Recommend follow up with cardiology in 1-2 weeks to follow up hospitalization. Cardiology will make arrangements for outpatient stress test after that time. Home health will be arranged for close monitoring and CHF education. 3. Patient with underlying hypertension. Medications have been adjusted during her stay. At discharge she will continue with Norvasc 5 mg daily and metoprolol 12.5 mg 1 pill twice daily. Recommend to maintain blood pressures less 150/80. Further adjustment can be done by her PCP. 4. Patient with diabetes mellitus type 2 non-insulin dependent. A1c 5.6. Patient previously on metformin. Metformin was discontinued due to her chronic renal disease. At discharge she may continue with glimepiride 2 mg daily. Patient will be taught on hypoglycemia. Recommend to maintain blood sugars less 140 fasting and less than 200 after meals. Patient may need to hold her glimepiride medication if blood sugars remain below 100. Recommend follow up with her PCP to further monitor and address. 5. Patient with chronic renal disease stage II. Renal ultrasound confirms this. Patient is seen by nephrology as an outpatient. Will recommend to discontinue metformin at this time. Patient may continue to follow up with nephrology as directed. Recommend future medications to be renally dosed. Recommend no further use of nonsteroidal anti-inflammatories. Diet: ADA Activity: Ad bob Time spent managing pt's care (in minutes): 55
--- NOTE | 2019-11-23 11:22 | CON ---
Date of Consultation: 11/23/[address] Jordan on 11/22/2019. I saw the patient on 11/23/2019. Reason For Consultation: Acute on chronic diastolic congestive heart failure. History Of Present Illness: Ms. Hassan is a 69-year-old Latin-[place] woman, has a history of diab etes and hypertension, sees Dr. Olivares as an outpatient, had a sudden episode of chest tightness wit h shortness of breath, pedal edema. No nausea, vomiting, diaphoresis. Denied palpitations or syncop e. Had PND and orthopnea. On the night she came in, she has already improved after IV Lasix. Past Medical History: As stated above. Allergies: SHE IS ALLERGIC TO CATS. Review of Systems: Negative. Social History: Negative. Family History: Negative. Medications: At home include Norvasc, metoprolol, lisinopril, Lasix, Amaryl, and metformin. Physical Examination: Vital Signs: Stable. She was afebrile. HEENT: Negative. Neck: Supple with no bruit. Chest: Clear to auscultation and percussion. Cardiac: Exam revealed a regular rhythm and rate with an S4 gallop. Abdomen: Obese, but benign. Extremity: Revealed no clubbing, cyanosis, or edema. Diagnostic Data: Creatinine is 1.99, hemoglobin 9.7. Her D-dimer was [address] angiog alida. Her glucose was 162. Troponin is 0.12. Her BNP was 5559. Renal ultrasound was negative. Car otid Doppler in 2017 was negative. EKG showed nonspecific changes. Chest x-ray showed mild volume o verload. Echocardiogram in 2018 showed mild pulmonary hypertension. Impression And Plan: 1.Acute on chronic diastolic congestive heart failure, improved. I agree with her present regimen. She needs to watch her salt intake and be on fluid restriction and watch her weight, beta-blockers a nd HERMAN inhibitors as the mainstay of therapy for diastolic congestive heart failure. She has another echocardiogram pending. If that shows no new changes, she can go home today. I will make arrangeme nts for her to have an outpatient stress test, preferably a Cardiolite. 2.Renal insufficiency stage 3. 3.Anemia. 4.Elevated troponin, BNP and D-dimer secondary to congestive heart failure. 5.Diabetes. 6.Blood pressure well controlled. 7.Mild pulmonary hypertension. Continue present regimen. See what the echo shows. Decide on disch arge later on today. Plan outpatient MPI later. SHAN/MILLY Voice ID: [id number] Report ID: [id number]
[2019-11-23 12:50] VITALS: BP 146/65; TEMP 98.8
--- NOTE | 2019-11-23 13:39 | ECHO ---
HEIGHT: 5 ft 1 in WEIGHT: 170 lb 11.2 oz DATE OF STUDY: 11/23/[address]: Musa Jordan DO 2-DIMENSIONAL: YES M.MODE: YES DOPPLER: YES COLOR FLOW: YES TDS: NO PORTABLE: NO DEFINITY: NO BUBBLE STUDY: NO DIAGNOSIS: EVALUATE CONGESTIVE HEART FAILURE, DIASTOLIC DYSFUNCTION CARDIAC HISTORY: CATHERIZATION: NO SURGERY: NO PROSTHETIC VALVE: NO PACEMAKER: NO MEASUREMENTS (cm) DIASTOLIC (NORMALS) SYSTOLIC (NORMALS) IVSd 1.2 (0.6-1.2) LA Diam 4.3 (1.9-4.0) LVEF 59% LVIDd 5.0 (3.5-5.7) LVIDs 3.5 (2.0-3.5) %FS 31% LVPWd 1.2 (0.6-1.2) Ao Diam 3.5 (2.0-3.7) 2 DIMENSIONAL ASSESSMENT: RIGHT ATRIUM: NORMAL LEFT ATRIUM: DILATED RIGHT VENTRICLE: NORMAL LEFT VENTRICLE: NORMAL TRICUSPID VALVE: NORMAL MITRAL VALVE: NORMAL PULMONIC VALVE: NORMAL AORTIC VALVE: SCLEROSIS PERICARDIAL EFFUSION: NONE AORTIC ROOT: NORMAL LEFT VENTRICULAR WALL MOTION: DECREASED LEFT VENTRICULAR COMPLIANCE. DOPPLER/COLOR FLOW: MILD TRICUSPID REGURGITATION. COMMENTS: NORMAL LEFT VENTRICULAR EJECTION FRACTION. DECREASED LEFT VENTRICULAR COMPLIANCE. MILD TRICUSPID REGURGITATION. NORMAL RIGHT VENTRICULAR SYSTOLIC PRESSURE. LEFT ATRIAL ENLARGEMENT. AORTIC SCLEROSIS. TECHNOLOGIST: Linda KABA
[2019-11-24] MEDS ORDERED: AMLODIPINE 5 MG TAB PO SCH (09:00)
== END 2019-11-23 14:30 | disposition home health service (06) ==
LOC: ER 08:37 → ERHOLD 12:23 → 2ND 13:43
PROVIDERS: ADMIT Family Medicine; ATTEND Family Medicine
DX: I13.0 Hypertensive heart and chronic kidney disease with heart failure and stage 1 through stage 4 chronic kidney disease, or unspecified chronic kidney disease (principal); I50.33 Acute on chronic diastolic (congestive) heart failure; E11.22 Type 2 diabetes mellitus with diabetic chronic kidney disease; N18.3 Chronic kidney disease, stage 3 (moderate); D63.1 Anemia in chronic kidney disease; D64.9 Anemia, unspecified; I27.20 Pulmonary hypertension, unspecified; I07.1 Rheumatic tricuspid insufficiency; I35.8 Other nonrheumatic aortic valve disorders; N28.1 Cyst of kidney, acquired; E78.5 Hyperlipidemia, unspecified; E66.9 Obesity, unspecified; Z79.84 Long term (current) use of oral hypoglycemic drugs; Z79.899 Other long term (current) drug therapy
CPT/HCPCS: 93005; 93306; 85025 ×2; 80048 ×2; 36415; 83735 ×2; 82550 ×2; 85610; 80061; 82947 ×5; 85379; 80076; 84443; 83036; 84484 ×3; 82553 ×2; 84439; 83880; 87804 ×2; 71275; 71045; 71046; 76770; 94640; 96374; 99285; Q9967; J0360; J1940 ×2; J1644 ×2; G0378 ×3

== ENCOUNTER 2021-12-26 13:53 | Emergency (ER) | payer MEDICARE, OTHER ==
--- OUTSIDE RECORDS SUMMARY | 2021-12-26 15:53 | XMS REPORT | Continuity of Care Document ---
:1950 Author Organization Formerly [facility] t Address [address] [place] [address] Care Team Providers Name Role Phone Elder Attending Clinician Unavailable Problems This patient has no known problems. Allergies, Adverse Reactions, Alerts This patient has no known allergies or adverse reactions. Medications Ordered Filled Start Stop Current Ordering Indication Dosage Frequency Signature Comments Components Source Medication Medication Date Date Medication? Clinician (SIG) Name Name Amlodipine Amlodipine Yes Tiara [address] [facility] Furosemide Furosemide Yes Tiaar [address] [facility] Glimepiride Glimepiride Yes Tiara [address] [facility] day [facility] Metoprolol Metoprolol Yes Tiara [address] [facility] Tartrate Tartrate [facility] Spironolact Spironolact 2020- No Tiara [address] [facility] Procedures This patient has no known procedures. Encounters Start End Encounter Admission Attending Care Care Encounter Source Date/Time Date/Time Type Type Clinicians Facility Department ID 2021-10-22 [facility] [id number] 11:55:45 Tiara [id number] [facility] 2021-10-[address] [facility] [id number] 11:45:26 Tiara [id number] [facility] 2021-10-22 Outpatient [facility] [id number] 11:25:54 Tiara 99822 [facility] 2021-10-22 Outpatient Elder [facility] [id number] 11:12:41 Tiara 93035 [facility] 2021-10-22 Outpatient Elder [facility] [id number] 10:58:43 Tiara [id number] [facility] 2021-10-22 Outpatient Elder [facility] [id number] 10:58:23 Tiara 20940 [facility] 2020-07-11 2020-07-11 Outpatient [facility] [id number] [facility] 2020-07-09 2020-07-09 Outpatient [facility] [id number] [facility] 2020-06-07 2020-06-07 [facility] [id number] [facility] 15:40:00 15:40:00 t [facility] l Medicine Outpati ent Clinics 2020-04-11 2020-04-11 [facility] [id number] [address] 07:46:00 07:46:[address] [facility] Medicine l Medicine Outpati ent Clinics 2020-04-08 2020-04-08 [facility] [id number] 13:46:00 13:46:00 t [facility] Medicine l Medicine Outpati ent Clinics 2020-03-07 2020-03-07 [facility] [id number] [address] 13:40:00 13:40:00 [facility] l Medicine Outpati ent Clinics 2020-02-21 2020-02-21 [facility] [id number] [address] 15:20:00 15:20:00 [facility] 2019-12-06 2019-12-06 Outpatient Ange Dhillon [id number] [facility] [address] 15:45:00 15:45:00 [facility] ent Clinics 2019-10-03 2019-10-03 Outpatient Ange Dhillon [id number] [facility] [address] 14:30:00 14:30:00 [facility] ent Clinics Results This patient has no known results.
[2021-12-26] MEDS ORDERED: FLUCONAZOLE 100 MG TAB ONE (16:03)
[2021-12-26] MEDS ORDERED: hydrOXYzine HCL 25 MG TAB ONE (16:03)
--- NOTE | 2021-12-26 16:08 | ER ---
Nurse's Notes [facility] Name: Diya Hassan Age: 71 yrs Sex: Female : 1950 Arrival Date: 12/26/2021 Time: 13:55 Bed 24 Private MD: Diagnosis: Folliculitis;Fungal infection of scalp Presentation: 12/26 14:37 Chief complaint: Patient states: "I feel sick to my stomach and I have had a headache ab2 since Wednesday. I've also been sleeping a lot." Pt denies v/d. Pt denies fever/chills. Coronavirus screen: Vaccine status: Patient reports receiving the 2nd dose of the covid vaccine. Client denies travel out of the [place] in the last 14 days. At this time, the client does not indicate any symptoms associated with coronavirus-19. Ebola Screen: Patient negative for fever greater than or equal to 101.5 degrees Fahrenheit, and additional compatible Ebola Virus Disease symptoms Patient denies exposure to infectious person. Patient denies travel to an Ebola-affected area in the 21 days before illness onset. No symptoms or risks identified at this time. Initial Sepsis Screen: Does the patient meet any 2 criteria? No. Patient's initial sepsis screen is negative. Does the patient have a suspected source of infection? No. Patient's initial sepsis screen is negative. Risk Assessment: Do you want to hurt yourself or someone else? Patient reports no desire to harm self or others. Onset of symptoms is unknown. 14:37 Method Of Arrival: Ambulatory ab2 14:37 Acuity: RJ 3 ab2 Triage Assessment: 14:38 Headache History: Denies prior headaches. General: Appears in no apparent distress. ab2 uncomfortable, Behavior is calm, cooperative, appropriate for age, crying. Pain: Complains of pain in head Pain currently is 10 out of 10 on a pain scale. Pain began 5 day ago Also complains of nausea. EENT: No deficits noted. Neuro: Level of Consciousness is awake, alert, obeys commands, Oriented to person, place, time, situation, Appropriate for age Access Services Librarian are equal bilaterally Moves all extremities. Gait is steady, Speech is normal, Facial symmetry appears normal, Reports headache. Cardiovascular: No deficits noted. Denies chest pain, shortness of breath. Respiratory: Airway is patent Respiratory effort is even, unlabored, Respiratory pattern is regular, symmetrical. GI: Reports nausea. : No deficits noted. No signs and/or symptoms were reported regarding the genitourinary system. Historical: - Allergies: 14:38 NKA; ab2 - PMHx: 14:38 Diabetes - NIDDM; Hypertension; ab2 - PSHx: 14:38 None; ab2 - Immunization history:: Adult Immunizations up to date. - Social history:: Smoking status: Patient denies any tobacco usage or history of. - Family history:: not pertinent. - Hospitalizations: : No recent hospitalization is reported. Screenin:30 Abuse screen: Denies threats or abuse. Denies injuries from another. Nutritional ld1 screening: No deficits noted. Tuberculosis screening: No symptoms or risk factors identified. Fall Risk None identified. Assessment: 16:30 General: Appears in no apparent distress. comfortable, Behavior is calm, cooperative, ld1 appropriate for age. 16:30 Pain:. Neuro: Level of Consciousness is awake, alert, obeys commands, Oriented to ld1 person, place, time, situation. Cardiovascular: Capillary refill < 3 seconds Patient's skin is warm and dry. Respiratory: Airway is patent Respiratory effort is even, unlabored. GI: Abdomen is flat, non-distended. : No signs and/or symptoms were reported regarding the genitourinary system. EENT: No signs and/or symptoms were reported regarding the EENT system. Derm: No signs and/or symptoms reported regarding the dermatologic system. Musculoskeletal: No signs and/or symptoms reported regarding the musculoskeletal system. Vital Signs: 14:37 BP 163 / 64; Pulse 79; Resp 17; Temp 98.2(TE); Pulse Ox 99% on R/A; Weight 63.5 kg; ab2 Height 5 ft. 2 in. (157.48 cm); Pain 10/10; 16:30 BP 155 / 67; Pulse 82; Resp 18; Pulse Ox 99% on R/A; ld1 14:37 Body Mass Index 25.61 (63.50 kg, 157.48 cm) ab2 Sellers Coma Score: 16:05 Eye Response: spontaneous(4). Verbal Response: oriented(5). Motor Response: obeys rn commands(6). Total: 15. ED Course: 13:55 Patient arrived in ED. am2 14:38 Triage completed. ab2 14:40 Arm band placed on right wrist. ab2 15:41 Eula Sharma, RN is Primary Nurse. ld1 15:45 Hiram Childress MD is Attending Physician. rn 16:30 Patient has correct armband on for positive identification. Placed in gown. Bed in low ld1 position. Call light in reach. Side rails up X2. school bus monitor on. Pulse ox on. NIBP on. Door closed. Noise minimized. Warm blanket given. 16:30 No provider procedures requiring assistance completed. Patient did not have IV access ld1 during this emergency room visit. Administered Medications: 16:01 Drug: hydrOXYzine 50 mg Route: PO; ld1 17:08 Follow up: Response: No adverse reaction ld1 16:01 Drug: DiFLUcan (fluconazole) 200 mg Route: PO; ld1 17:08 Follow up: Response: No adverse reaction ld1 Outcome: 16:08 Discharge ordered by . rn 17:08 Patient left the ED. ld1 Signatures: Hiram Childress MD MD rn Moreno, Amanda am2 Eula Sharma, RN RN ld1 Morales Sommers ab2
--- NOTE | 2021-12-26 16:08 | EDPHYS ---
Physician Documentation [facility] Name: Diya Hassan Age: 71 yrs Sex: Female : 1950 Arrival Date: 12/26/2021 Time: 13:55 Bed 24 Private MD: ED Physician Hiram Childress HPI: 12/26 16:02 This 71 yrs old Female presents to ER via Ambulatory with complaints of scalp rn itching and pain. 16:02 The patient complains of pain to the left side of the back of head. The patient rn describes the headache as itching, burning. Onset: The symptoms/episode began/occurred this morning. Associated signs and symptoms: Pertinent positives: itching and burning sensation to scalp. Severity of symptoms: At its worst the pain was mild, in the emergency department the pain is unchanged. Headache History: Denies prior headaches. The symptoms are alleviated by nothing. the symptoms are aggravated by nothing. The patient has not experienced similar symptoms in the past. Reports woke up this morning with burning sensation to top of scalp and left scalp, itches, no fall or trauma, no fever, reports discomfort is on scalp and not deeper than scalp. . Historical: - Allergies: 14:38 NKA; ab2 - PMHx: 14:38 Diabetes - NIDDM; Hypertension; ab2 - PSHx: 14:38 None; ab2 - Immunization history:: Adult Immunizations up to date. - Social history:: Smoking status: Patient denies any tobacco usage or history of. - Family history:: not pertinent. - Hospitalizations: : No recent hospitalization is reported. ROS: 16:02 Constitutional: Negative for fever, chills, and weight loss, Eyes: Negative for injury, rn pain, redness, and discharge, Skin: + itching and burning to scalp Neuro: + scalp burning and itching Exam: 16:02 Constitutional: This is a well developed, well nourished patient who is awake, alert, rn and in no acute distress. Head/Face: Normocephalic, atraumatic. Skin: Warm, dry, + nodularity and brown flakes to bases of scalp hair follicles. No laceration or open wounds. + excoriations. No alopecia.No kerion Vital Signs: 14:37 BP 163 / 64; Pulse 79; Resp 17; Temp 98.2(TE); Pulse Ox 99% on R/A; Weight 63.5 kg; ab2 Height 5 ft. 2 in. (157.48 cm); Pain 10/10; 16:30 BP 155 / 67; Pulse 82; Resp 18; Pulse Ox 99% on R/A; ld1 14:37 Body Mass Index 25.61 (63.50 kg, 157.48 cm) ab2 Aisha Coma Score: 16:05 Eye Response: spontaneous(4). Verbal Response: oriented(5). Motor Response: obeys rn commands(6). Total: 15. MDM: 15:45 Patient medically screened. rn 16:05 Differential diagnosis: folliculitis, fungal scalp infection. Data reviewed: vital rn signs, nurses notes, and as a result, I will discharge patient. Counseling: I had a detailed discussion with the patient and/or guardian regarding: the historical points, exam findings, and any diagnostic results supporting the discharge/admit diagnosis, the need for outpatient follow up, to return to the emergency department if symptoms worsen or persist or if there are any questions or concerns that arise at home. Special discussion: I discussed with the patient/guardian in detail that at this point there is no indication for admission to the hospital. It is understood, however, that if the symptoms persist or worsen the patient needs to return immediately for re-evaluation. Based on the history and exam findings, there is no indication for further emergent testing or inpatient evaluation. I discussed with the patient/guardian the need to see the primary care provider for further evaluation of the symptoms. Administered Medications: 16:01 Drug: hydrOXYzine 50 mg Route: PO; ld1 17:08 Follow up: Response: No adverse reaction ld1 16:01 Drug: DiFLUcan (fluconazole) 200 mg Route: PO; ld1 17:08 Follow up: Response: No adverse reaction ld1 Disposition Summary: 12/26/21 16:08 Discharge Ordered Location: Home rn Problem: new rn Symptoms: are unchanged rn Condition: Stable rn Diagnosis - Folliculitis rn - Fungal infection of scalp rn Followup: rn - With: Private Physician - When: As needed - Reason: Recheck today's complaints, Re-evaluation by your physician Discharge Instructions: - Discharge Summary Sheet rn - Folliculitis rn Forms: - Medication Reconciliation Form rn - Thank You Letter rn - Antibiotic sales management intern - Prescription Opioid Use rn Prescriptions: - Clindamycin HCl 300 mg Oral Capsule - take 1 capsule by ORAL route every 6 hours for 10 days; 40 capsule; Refills: 0, rn Product Selection Permitted - Hydroxyzine HCl 50 mg Oral Tablet - take 1 tablet by ORAL route every 8 hours As needed; 20 tablet; Refills: 0, rn Product Selection Permitted - ketoconazole 2 % Topical shampoo - apply 1 application by TOPICAL route once daily for 2 weeks; 1 bottle; Refills: rn 0, Product Selection Permitted Signatures: Dispatcher [employer] EDHiram Kirby MD MD rn Dibbern, Lauren, RN RN ld1 Morales Sommers2 Corrections: (The following items were deleted from the chart) 16:00 15:26 Head Brain Wo [id number].RAD.[id number] ordered. EDAK EDMS
[2021-12-26 17:32] VITALS: TEMP 98.2; O2SAT 99
[2021-12-26 17:34] VITALS: BP 155/67
== END 2021-12-26 17:08 | disposition home or self-care (01) ==
LOC: ER 13:53
DX: B35.0 Tinea barbae and tinea capitis (principal); E11.9 Type 2 diabetes mellitus without complications; I10 Essential (primary) hypertension
CPT/HCPCS: 99284

== ENCOUNTER 2022-10-08 05:08 | Inpatient (IN) | payer OTHER ==
--- OUTSIDE RECORDS SUMMARY | 2022-10-08 05:12 | XMS REPORT | Continuity of Care Document ---
:1950 Author Organization [facility] t Address [address] [place] [address] Care Team Providers Name Role Phone ElderTiara Attending Clinician Unavailable Nika Branch Attending Clinician Payers Payer Name Policy Type Policy Number Effective Date Expiration Date Paramjit schultz AARP Medicare C1 [id number] Common Sp [facility] Problems Condition Condition Condition Status Onset Resolution Last Treating Co mments Source Name Details Category Date Date Treatment Clinician Date Alzheimer' Alzheimer Problem Active 2019-05-16 Memoria s disease 's disease 14:15:48 l (disorder) (disorder) He rmdinah Active Problem 05/16/2019 Automatica lly added by Discern Expert with order of Add Problem Alzheimer' s Disease on September 15, 2018 13:38:03 GRIEVANCE AND APPEALS SPECIALIST with order ID: [id number] 1.0 entered by Nika Branch . Medical Group Simple Simple Problem Active 2019-05-16 Jose R deon obesity obesity 14:15:48 l (disorder) (disorder) He rmann Active Problem 05/16/2019 Medical Group [id number] Hyperurice Problem Active Com mon tsering [facility] Urine Urine Problem Active Common incontinen incontinen Sp sigrid ce ce [facility] [id number] Pessary Problem Active Commo n maintenanc [facility] e [facility] Vitamin D Vitamin D Problem Active Com mon deficiency deficiency Sp sigrid [facility] Onychomyco Onychomyco Problem Active C ommon sis sis Spirit - [facility] Cough Cough Problem Active Common [facility] - [facility] Essential Essential Problem Active Com mon hypertensi hypertensi Sp sigrid on on - CHI [facility] [id number] Acute on Problem Active Comm on chronic Spirit diastolic - CHI congestive heart [facility] [id number] Anemia Problem Active Common associated Spirit with - CHI chronic renal [facility] [id number] Hypermagne Problem Active Com mon semia Spirit - [facility] Diabetic Controlled Problem Active 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 edema edema Proliferat Type 2 Problem Active Commo n kriss diabetes Spirit retinopath mellitus - CH I y with with St retinal diabetic [facility] edema due retinopath Med ical to type 2 y and Center diabetes macular mellitus edema Accelerate Accelerate Problem Active C ommon d d Spirit essential essential - CH I hypertensi hypertensi St on on [facility] [id number] Proteinuri Problem Active Com mon a, Spirit unspecifie - CHI d type [facility] [id number] Asymptomat Problem Active Co mmon ic Spirit microscopi - CHI c [facility] [id number] Chronic Problem Active Commo n kidney Spirit disease, - CHI stage IV (severe) [facility] [id number] Anemia, Problem Active Commo n unspecifie Spirit d type - [facility] [id number] Trigger Problem Active Commo n finger, Spirit right ring - CHI finger [facility] Pure Hyperchole Problem Active Commo n hyperchole steremia Spir it sterolemia - CHI [facility] [id number] Chronic Problem Active Commo n diastolic Spirit (congestiv - CHI e) heart [facility] Alopecia Alopecia Problem Active Commo n Spirit - [facility] [id number] Congestive Problem Active Com mon heart [facility] failure, - [facility] unspecifie St d [facility] chronicity [facility] unspecifie d heart failure type [id number] Shortness Problem Active Com mon of breath [facility] [id number] Peripheral Problem Active Co mmon edema [facility] Allergies, Adverse Reactions, Alerts This patient has no known allergies or adverse reactions. Social History Social Habit Start Date Stop Date Quantity Comments Source History of Tobacco Use Never Smoker Common [facility] Sex Assigned At Com mon [facility] Smoking Status Start Date Stop Date Source Social History [facility] Medications Ordered Filled Start Stop Current Ordering Indication Dosage Frequency Signature Comments Components Source Medication Medication Date Date Medication? Clinician (SIG) Name Name Furosemide 2017-09 Yes 60 mg = Jose R deon 40 MG Oral 2-20 1.5 tab, l Tablet 19:36: PO, Daily, Kitty nn [Lasix] 00 # 45 tab, 5 Refill(s), Pharmacy: [facility] glimepiride 2017-09 Yes 2 mg = 1 Me moria 2 mg oral 2-20 tab, PO, l tablet 16:57: Daily, 0 [place] 00 Refill(s) Furosemide 2017-09 Yes 40 mg = 1 Me moria 40 MG Oral 2-20 tab, PO, l Tablet 16:57: Daily, 0 [place] [Lasix] 00 Refill(s) Nitrofurant 2017-09 Yes 100 mg = 1 Memoria oin 100 MG 2-20 cap, PO, l Oral 16:57: BID, 0 Bud Capsule 00 Refill(s) [Macrobid] Amlodipine 2017-09 Yes 10 mg = 1 Me moria 10 MG Oral 2-20 tab, PO, l Tablet 16:57: Daily, 0 Bud [Norvasc] 00 Refill(s) memantine 2017-09 Yes 28 mg = 1 Mem oria 28 mg oral 2-20 cap, PO, l capsule, 16:57: Daily, 0 Kitty nn extended 00 Refill(s) release Amlodipine Amlodipine Yes Tiara 1 tablet Common Besylate [facility] Furo[facility] Furosemide Yes Tiara 1 tablet Common Millender [facility] Glimepiride Glimepiride Yes Tiara 1 tablet Common Millender with Spirit breakfast - [facility] or the [facility] the day [place] Metoprolol Metoprolol Yes Tiara 1 tablet Common Tartrate Tartrate Millender Sp sigrid - [facility] Furosemide Furosemide No 1{table QD Furosemide 40 MG 40 MG t} 40 MG Amlodipine Amlodipine No 1{table QD Amlodipine Besylate 10 Besylate 10 t} Besylate MG MG 10 MG Glimepiride Glimepiride No 1{table QD Glimepirid 2 MG 2 MG t_with_ e [address]_or_t he_firs t_main_ meal_of _the_da y} Metoprolol Metoprolol No 1{table BID Metoprolol Tartrate 50 Tartrate 50 t} Tartrate MG MG 50 MG Furosemide Furosemide No 1{table QD Furosemide 40 MG 40 MG t} 40 MG Amlodipine Amlodipine No 1{table QD Amlodipine Besylate 10 Besylate 10 t} Besylate MG MG 10 MG Glimepiride Glimepiride No 1{table QD Glimepirid 2 MG 2 MG t_with_ e [address]_or_t he_firs t_main_ meal_of _the_da y} Metoprolol Metoprolol No 1{table BID Metoprolol Tartrate 50 Tartrate 50 t} Tartrate MG MG 50 MG Spironolact Spironolact 2020- No Tiara 1 tablet Common one one 03-07 Millender Spirit 00:00 - CHI :00 [facility] Spironolact Spironolact 2020- No 1{table QD Spironolac one 25 MG one 25 MG 03-07 t} tone 25 MG 00:00 :00 Spironolact Spironolact 2020- No 1{table QD Spironolac one 25 MG one 25 MG 03-07 t} tone 25 MG 00:00 :00 Immunizations Ordered Immunization Filled Immunization Date Status Commen ts Source Name Name Lidocaine Lidocaine 2020-07-11 Completed [facility] 13:55:00 - [facility] Lidocaine Lidocaine 2020-07-11 Completed [facility] 13:55:00 [facility] Celestone Soluspan Celestone Soluspan 2020-07-11 Completed Common [facility] (Betamethasone) (Betamethasone) 13:53:00 - [facility] Celestone Soluspan Celestone Soluspan 2020-07-11 Completed [facility] (Betamethasone) (Betamethasone) 13:53:00 [facility] Vital Signs Vital Name Observation Time Observation Value Comments Source height 2020-07-11 13:30:00 60.25 [in_i] Common [facility] - [facility] weight 2020-07-11 13:30:00 167.4 [lb_av] Common [facility] temperature 2020-07-11 13:30:00 97.5 [degF] Common [facility] bmi 2020-07-11 13:30:00 32.42 kg/m2 Common [facility] blood pressure 2020-07-11 13:30:00 142 mm[Hg] Common Spirit - systolic [facility] blood pressure 2020-07-11 13:30:00 71 mm[Hg] Common Spirit - diastolic [facility] height 2020-07-09 10:00:00 60.25 [in_i] Common [facility] weight 2020-07-09 10:00:00 166.6 [lb_av] [facility] temperature 2020-07-09 10:00:00 97.6 [degF] Common [facility] bmi 2020-07-09 10:00:00 32.26 kg/m2 [facility] oximetry 2020-07-09 10:00:00 97 % Common [facility] blood pressure 2020-07-09 10:00:00 188 mm[Hg] Common Spirit - systolic [facility] blood pressure 2020-07-09 10:00:00 87 mm[Hg] Common Spirit - diastolic [facility] Height 2018-09-15 16:54:00 [facility] 2018-09-15 16:54:00 [facility] BMI Calculated 2018-09-15 16:54:00 Hilda Chung Procedures This patient has no known procedures. Encounters Start End Encounter Admission Attending Care Care Encounter Source Date/Time Date/Time Type Type Clinicians Facility Department ID 2021-10-22 Outpatient Elder, STROBER [facility] [id number] Common 11:55:45 Tiara [id number] [facility] 2021-10-22 Outpatient Elder, STLMLC ST[facility] [id number] Common 11:45:26 Tiara [id number] [facility] 2021-10-22 Outpatient Elder, STLMLC ST[facility] [id number] Common 11:25:54 Tiara [id number] [facility] 2021-10-22 Outpatient Elder, STLMLC [facility] [id number] Common 11:12:41 Tiara 80217 [facility] 2021-10-22 Outpatient Elder, STLMLC [facility] [id number] Common 10:58:43 Tiara [id number] [facility] 2021-10-22 Outpatient Elder, STLMLC STLC [id number] Common 10:58:23 Tiara 19806 [facility] 2020-07-11 2020-07-11 OFFICE STLC STLC [id number] Co mmon 00:00:00 00:00:00 VISIT NEW Spir it PT LEVEL 3 - [facility] 2020-07-09 2020-07-09 SUB ANNUAL STLMLC STLMLC [id number] Common 00:00:00 00:00:00 MCR Spirit WELLNESS - [facility] VISIT [facility] 2020-06-07 2020-06-07 [id number] Common 15:40:00 15:40:00 [facility] [address] [facility] 2020-04-11 2020-04-11 [facility] [id number] Common 07:46:00 07:46:00 [facility] [address] [facility] 2020-04-08 2020-04-08 [facility] [id number] Common 13:46:00 13:46:00 [facility] [address] [facility] 2020-03-07 2020-03-07 [facility] [id number] Common 13:40:00 13:40:00 t [facility] Road Spir [address] Road [facility] 2020-02-21 2020-02-21 [facility] [id number] Common 15:20:00 15:20:00 t [facility] Road Spir [address] Road [facility] 2019-12-06 2019-12-06 Out[facility] [id number] Common 15:45:00 15:45:00 t [facility] [address] Spir [address] [facility] 2019-10-03 2019-10-03 Out[facility] [id number] Common 14:30:00 14:30:00 t [facility] [address] Spir [address] [facility] 2018-10-27 2018-10-27 [place] [id number] Memoria 16:30:00 16:30:00 Pre-Reg r Nephrology 02 [facility] 2018-10-27 2018-10-27 Outpatient GABRIELIE GABRIELIE [id number] Memoria 10:30:00 10:30:00 02 [facility] 2018-10-27 2018-10-27 [place] [id number] 10:30:00 10:30:[address] [place] [address] 2018-10-27 2018-10-27 [place] [id number] 10:30:00 10:30:[address] [place] [address] 2018-10-20 2018-10-21 [place] [id number] Memoria 16:15:00 05:59:59 Pre-Reg r Internal 03 [facility] 2018-10-20 2018-10-20 Outpatient MHMG MG [id number] 10:15:00 23:59:59 03 2018-10-20 2018-10-20 Outpatient MHIE GABRIELIE [id number] Memoria 10:15:00 10:15:00 03 [facility] 2018-10-13 2018-10-13 [place] [id number] Memoria 20:00:00 20:00:00 Pre-Reg r Nephrology 01 hawk [facility] 2018-10-13 2018-10-13 Outpatient PERLA ELLEN [id number] Memoria 14:00:00 14:00:00 01 hawk Farrell 2018-10-13 2018-10-13 Outpatient Ramsesautumn [facility] [id number] 14:00:00 14:00:00 Manaf 01 [facility] 2018-09-15 2018-09-16 Outpatient nullFlavo [facility] [id number] Memoria 17:45:00 05:59:59 r Nephrology 00 hawk [place]ron Bud 2018-09-15 2018-09-15 Outpatient Ramsesautumn [facility] [id number] 11:45:00 23:59:59 Manaf 00 [facility] 2018-09-15 2018-09-15 Outpatient PERLA ELLEN [id number] Memoria 11:45:00 11:45:00 00 hawk Farrell Results This patient has no known results.
[2022-10-08 05:53] LABS: Absolute Lymphocytes (CBC) 1.3 K/uL (0.7-4.9); Hematocrit 24.8 % (36.0-45.0); Lymphocytes % 25.2 % (15.3-44.8); MCV 91.9 fL (80-100); MPV 7.4 fL (7.6-11.3)
[2022-10-08 05:58] LABS: Protime INR 0.97
[2022-10-08 06:10] LABS: ALT/SGPT 16 U/L (13-56); AST/SGOT 10 U/L (15-37); Albumin 3.6 g/dL (3.4-5.0); Alkaline Phosphatase 90 U/L (45-117); BUN Blood Urea Nitrogen 51 mg/dL (7-18); Bicarbonate 19 mmol/L (21-32); Bilirubin Total 0.3 mg/dL (0.2-1.0); Glomerular Filtration Rate 13 ml/min (=/>90); Glucose Level 112 mg/dL (74-106); Magnesium 2.6 mg/dL (1.6-2.4); NT PRO-BNP 5944 pg/mL (<125); Potassium 3.8 mmol/L (3.5-5.1); Protein, Total 7.2 g/dL (6.4-8.2); Sodium Level 142 mmol/L (136-145)
[2022-10-08 06:20] LABS: Bilirubin Direct < 0.1 mg/dL (0-0.2)
[2022-10-08 06:21] LABS: Troponin High Sensitivity 191.9 pg/mL (<58.9)
[2022-10-08 06:35] LABS: SARS-COV-2 RT PCR NEGATIVE (NEGATIVE)
[2022-10-08] MEDS ORDERED: FUROSEMIDE 40 MG/4 ML VIAL ONE ×2 (06:37→07:43)
--- NOTE | 2022-10-08 07:27 | EDPHYS ---
Physician Documentation [facility] Name: Diya Hassan Age: 72 yrs Sex: Female : 1950 Arrival Date: 10/08/2022 Time: 05:10 Bed 20 Private MD: ED Physician Vidal England HPI: 10/08 05:17 This 72 yrs old Female presents to ER via Unassigned with complaints of rn Shortness Of Breath. 05:17 The patient has shortness of breath at rest, with light activity. Onset: The rn symptoms/episode began/occurred 2 day(s) ago. Duration: The symptoms are continuous, and are steadily getting worse. The patient's shortness of breath is aggravated by coughing, exertion, light activity. Associated signs and symptoms: Pertinent positives: non-productive cough, Pertinent negatives: dizziness, fever, hemoptysis. Severity of symptoms: At their worst the symptoms were moderate in the emergency department the symptoms are unchanged. The patient has experienced similar episodes in the past. The patient has not recently seen a physician. Historical: - Allergies: 05:41 NKA; bb - PMHx: 05:41 Diabetes - NIDDM; Hypertension; bb - Immunization history:: Client reports receiving the 1st dose of the Covid vaccine. - Social history:: Smoking status: Patient denies any tobacco usage or history of. - Family history:: not pertinent. - Hospitalizations: : No recent hospitalization is reported. ROS: 05:17 Constitutional: Negative for fever, chills, and weight loss, Eyes: Negative for injury, rn pain, redness, and discharge, Cardiovascular: + edema Respiratory: + cough and sob Abdomen/GI: Negative for abdominal pain, nausea, vomiting, diarrhea, and constipation, MS/Extremity: Negative for injury and deformity, Skin: Negative for injury, rash, and discoloration, Neuro: Negative for headache, weakness, numbness, tingling, and seizure. Exam: 05:17 Constitutional: This is a well developed, well nourished patient who is awake, alert, rn mild tachypnea, walked to room from waiting room Head/Face: Normocephalic, atraumatic. ENT: no stridor Cardiovascular: Bradycardic, regular. No pulse deficits. Respiratory: + mild tachypnea with coarse bilateral breath sounds, no retractions Abdomen/GI: soft, non-tender Skin: Warm, dry MS/ Extremity: Pulses equal, no cyanosis. Nonpitting edema bilateral lower ext Neuro: Awake and alert, GCS 15 06:02 ECG was reviewed by the Attending Physician. rn Vital Signs: 05:20 BP 155 / 60; Pulse 58; Resp 26 S; Temp 97.9(O); Pulse Ox 96% on R/A; Weight 71.67 kg bb (R); Height 5 ft. 1 in. (154.94 cm) (R); Pain 0/10; 06:15 BP 146 / 65; Pulse 58; Resp 15 S; Pulse Ox 95% on R/A; Pain 0/10; aa9 07:00 BP 167 / 59; Pulse 57; Resp 15; Pulse Ox 94% ; bp 08:00 BP 148 / 58; Pulse 63; Resp 13; Pulse Ox 96% ; bp 09:00 BP 169 / 65; Pulse 53; Resp 15; Pulse Ox 96% ; bp 10:00 BP 153 / 55; Pulse 56; Resp 13; Pulse Ox 97% ; bp 11:00 BP 163 / 61; Pulse 56; Resp 13; Pulse Ox 98% ; bp 05:20 Body Mass Index 29.85 (71.67 kg, 154.94 cm) bb MDM: 05:10 Patient medically screened. rn 05:21 Differential diagnosis: Anemia Anxiety Reaction CHF exacerbation, Myocardial Infarction rn pneumonia, Pneumothorax pulmonary edema, Pulmonary Embolism reactive airway disease. 07:09 Patient medically screened. [facility] 07:19 Antibiotic administration: Not indicated. Immunization status: Pneumococcal vaccine: [facility] Influenza vaccine: Data reviewed: vital signs, nurses notes, lab test result(s), EKG, radiologic studies, plain films. Consideration of Admission/Observation Patient was admitted/placed on observation. Escalation of care including admission/observation considered. Management of patient was discussed with the following: Primary Care Provider: christelle hospitalist, admit. I considered the following discharge prescriptions or medication management in the emergency department Medications were administered in the Emergency Department. See MAR. Independent interpretation of the following test(s) in the Emergency Department EKG: See my EKG interpretation above X-Ray: My interpretation is ekg. CT Scan: My interpretation is chest . Test considered but Not performed: MRI: chest. 10/08 05:17 Order name: [facility]; Complete Time: 06:25 rn 10/08 05:17 Order name: Blood Culture Adult (2) rn 10/08 05:17 Order name: CBC with Diff; Complete Time: 06:02 rn 10/08 05:17 Order name: Hepatic Function; Complete Time: 06:25 rn 10/08 05:17 Order name: Magnesium; Complete Time: 06:25 rn 10/08 05:17 Order name: NT PRO-BNP; Complete Time: 06:25 rn 10/08 05:17 Order name: PT-INR; Complete Time: 06:02 rn 10/08 05:17 Order name: Ptt, Activated; Complete Time: 06:02 rn 10/08 05:17 Order name: Troponin HS; Complete Time: 06:25 rn 10/08 05:17 Order name: COVID-19/FLU A+B; Complete Time: 06:37 rn 10/08 07:25 Order name: Type And Screen laney 10/08 08:42 Order name: ABO/RH no charge EDMS 10/08 10:07 Order name: CBC with Automated Diff EDMS 10/08 10:07 Order name: CBC with Automated Diff EDMS 10/08 05:17 Order name: XRAY CXR (1 view) rn 10/08 06:27 Order name: CT Chest Wo Con rn 10/08 06:31 Order name: Thorax Wo Con EDMS 10/08 10:07 Order name: Echo with Doppler EDMS 10/08 10:07 Order name: Echo with Doppler EDMS 10/08 10:07 Order name: Comprehensive Metabolic Panel EDMS 10/08 10:07 Order name: Comprehensive Metabolic Panel EDMS 10/08 10:07 Order name: Magnesium EDMS 10/08 10:07 Order name: Magnesium EDMS 10/08 10:07 Order name: NT PRO-BNP EDMS 10/08 10:07 Order name: NT PRO-BNP EDMS 10/08 10:07 Order name: Phosphorus EDMS 10/08 10:07 Order name: Phosphorus EDMS 10/08 10:07 Order name: Troponin High Sensitivity EDMS 10/08 10:08 Order name: Ur Protein EDMS 10/08 05:17 Order name: EKG; Complete Time: 05:18 rn 10/08 05:17 Order name: Cardiac monitoring; Complete Time: 05:37 rn 10/08 05:17 Order name: EKG - Nurse/Tech; Complete Time: 05:46 rn 10/08 05:17 Order name: IV Saline Lock; Complete Time: 05:37 rn 10/08 05:17 Order name: Labs collected and sent; Complete Time: 05:37 rn 10/08 05:17 Order name: O2 Per Protocol; Complete Time: 05:37 rn 10/08 05:17 Order name: O2 Sat Monitoring; Complete Time: 05:37 rn 10/08 10:07 Order name: CONS Physician Consult EDME 10/08 10:07 Order name: CONS Physician Consult EDME 10/08 10:07 Order name: Heart Healthy EDME 10/08 10:07 Order name: Renal Ultrasound-Complete EDME 10/08 10:07 Order name: Renal Ultrasound-Complete EDME 10/08 11:56 Order name: US EDME EC:02 Rate is 55 beats/min. Rhythm is regular. Left axis deviation noted. QRS is positive in rn lead I and negative in lead aVF. MN interval is normal. QRS interval is normal. QT interval is normal. No Q waves. T waves are Inverted in leads I, aVL. No ST changes noted. Clinical impression: Sinus bradycardia. Interpreted by me. Reviewed by me. Administered Medications: 06:45 Drug: Lasix (furosemide) 40 mg Route: IVP; Site: right antecubital; aa9 07:53 Follow up: Response: No adverse reaction bp 07:45 Drug: Lasix (furosemide) 40 mg Route: IVP; Site: right antecubital; bp 11:41 Follow up: Response: No adverse reaction bp 07:45 Drug: ProTONIX (pantoprazole) 40 mg Route: IVP; Site: right antecubital; bp 11:41 Follow up: Response: No adverse reaction bp Disposition Summary: 10/08/22 07:26 Hospitalization Ordered Hospitalization Status: Inpatient Admission laney Provider: Kerrie Bliss cha Location: Telemetry/MedSurg (Inpatient) laney Condition: Fair laney Problem: new laney Symptoms: have improved laney Bed/Room Type: Standard laney Room Assignment: 423(10/08/22 10:54) dw Diagnosis - Dyspnea laney - Anemia, unspecified laney - Cardiomegaly laney - Unspecified combined systolic (congestive) and diastolic (congestive) heart failure laney - Type 2 diabetes mellitus with hyperglycemia laney - Unspecified kidney failure - chronic laney - Non ST elevation [place] laney Forms: - Medication Reconciliation Form laney - SBAR form laney Signatures: Dispatcher [employer] EDMS Valerie Zhao RN RN Vidal Cho MD MD cha Ballard, Brenda, RN RN bb Nieto, Roman, MD MD rn Peltier, Brian RN Sugey Galindo RN RN aa9 Corrections: (The following items were deleted from the chart) 06:37 06:25 Chest For PE Angio+CT.RAD.BRZ ordered. EDMS EDMS 10:54 07:26 laney luo
--- NOTE | 2022-10-08 07:27 | ER ---
Nurse's Notes [facility] Name: Diya Hassan Age: 72 yrs Sex: Female : 1950 Arrival Date: 10/08/2022 Time: 05:10 Bed 20 Private MD: Diagnosis: Dyspnea;Anemia, unspecified;Cardiomegaly;Unspecified combined systolic (congestive) and diastolic (congestive) heart failure;Type 2 diabetes mellitus with hyperglycemia;Unspecified kidney failure-chronic;Non ST elevation [place] Presentation: 10/08 05:20 Chief complaint: Patient states: she is having shortness of breath which started this bb morning. Coronavirus screen: Client presents with at least one sign or symptom that may indicate coronavirus-19. Ebola Screen: No symptoms or risks identified at this time. Initial Sepsis Screen: Does the patient meet any 2 criteria? No. Patient's initial sepsis screen is negative. Does the patient have a suspected source of infection? No. Patient's initial sepsis screen is negative. Risk Assessment: Do you want to hurt yourself or someone else? Patient reports no desire to harm self or others. Onset of symptoms was October 08, 2022. 05:20 Method Of Arrival: Ambulatory bb 05:20 Acuity: RJ 3 bb Triage Assessment: 05:47 General: Appears uncomfortable, Behavior is calm, cooperative, appropriate for age. aa9 Pain: Denies pain. Respiratory: Reports shortness of breath Airway is patent Respiratory effort is even, unlabored. GI: Reports diarrhea, nausea, vomiting. : No signs and/or symptoms were reported regarding the genitourinary system. Derm: Skin is intact, with poor turgor. 11:40 Respiratory: Onset: The symptoms/episode began/occurred this morning, the patient has bp mild shortness of breath. Historical: - Allergies: 05:41 NKA; bb - PMHx: 05:41 Diabetes - NIDDM; Hypertension; bb - Immunization history:: Client reports receiving the 1st dose of the Covid vaccine. - Social history:: Smoking status: Patient denies any tobacco usage or history of. - Family history:: not pertinent. - Hospitalizations: : No recent hospitalization is reported. Screenin:46 [facility] ED Fall Risk Assessment (Adult) History of falling in the last 3 months, aa9 including since admission No falls in past 3 months (0 pts) Confusion or Disorientation No (0 pts) Intoxicated or Sedated No (0 pts) Impaired Gait No (0 pts) Mobility Assist Device Used No (0 pt) Altered Elimination No (0 pt) Score/Fall Risk Level 0 - 2 = Low Risk. Abuse screen: Denies threats or abuse. Denies injuries from another. Nutritional screening: Has had N/V for 3 or more days. Tuberculosis screening: No symptoms or risk factors identified. Assessment: 05:48 Cardiovascular: Rhythm is sinus bradycardia. Respiratory: Airway is patent Respiratory aa9 effort is even, unlabored. 06:19 Reassessment: Patient appears in no apparent distress at this time. Patient is alert, aa9 oriented x 3, equal unlabored respirations, skin warm/dry/pink. Patient denies pain at this time. 07:00 Reassessment: RECD REPORT FROM CARLOS CHAVEZ. 72YO HF P/W SOB. ADMIT PENDING FOR POSITIVE bp TROP. 07:05 Reassessment: FRIEND: MOOSE TREVINO [phone]. bp 09:00 Reassessment: No changes from previously documented assessment. Patient and/or family bp updated on plan of care and expected duration. Pain level reassessed. ADMIT IN PROCESS. 11:00 Respiratory: Breath sounds are clear bilaterally. bp 11:30 Reassessment: ADMIT COMPLETE, REPORT TO KATIE CHAVEZ FOR RM 423. bp Vital Signs: 05:20 BP 155 / 60; Pulse 58; Resp 26 S; Temp 97.9(O); Pulse Ox 96% on R/A; Weight 71.67 kg bb (R); Height 5 ft. 1 in. (154.94 cm) (R); Pain 0/10; 06:15 BP 146 / 65; Pulse 58; Resp 15 S; Pulse Ox 95% on R/A; Pain 0/10; aa9 07:00 BP 167 / 59; Pulse 57; Resp 15; Pulse Ox 94% ; bp 08:00 BP 148 / 58; Pulse 63; Resp 13; Pulse Ox 96% ; bp 09:00 BP 169 / 65; Pulse 53; Resp 15; Pulse Ox 96% ; bp 10:00 BP 153 / 55; Pulse 56; Resp 13; Pulse Ox 97% ; bp 11:00 BP 163 / 61; Pulse 56; Resp 13; Pulse Ox 98% ; bp 05:20 Body Mass Index 29.85 (71.67 kg, 154.94 cm) bb ED Course: 05:10 Patient arrived in ED. ja2 05:10 Hiram Childress MD is Attending Physician. rn 05:15 Sugey Huddleston, RN is Primary Nurse. aa9 05:20 Arm band placed on Patient placed in an exam room, on a stretcher, on bus monitor, bb on pulse oximetry. 05:36 Inserted saline lock: 20 gauge in right antecubital area, using aseptic technique. aa9 Blood collected. 05:37 BMP Sent. aa9 05:37 Blood Culture Adult (2) Sent. aa9 05:37 CBC with Diff Sent. aa9 05:37 Hepatic Function Sent. aa9 05:37 COVID-19/FLU A+B Sent. aa9 05:37 Troponin HS Sent. aa9 05:37 Magnesium Sent. aa9 05:37 NT PRO-BNP Sent. aa9 05:37 PT-INR Sent. aa9 05:37 Ptt, Activated Sent. aa9 05:41 Triage completed. bb 05:44 XRAY CXR (1 view) In Process Unspecified. EDMS 05:48 Patient has correct armband on for positive identification. Placed in gown. Call light aa9 in reach. Side rails up X2. Adult w/ patient. 06:21 Blood Culture Adult (2) Sent. aa9 06:22 Notified ED physician of a critical lab result(s). troponin of 191.9 Dr Childress notified. bb 06:57 Thorax Wo Con In Process Unspecified. EDMS 07:03 Attending Physician role handed off by Hiram Childress MD lanye 07:03 Vidal England MD is Attending Physician. laney 07:25 Kerrie Bliss MD is Hospitalizing Provider. laney 11:08 Primary Nurse role handed off by Sugey Huddleston, RN bp 11:08 Fady Garcia, SCOTT is Primary Nurse. bp 11:38 No provider procedures requiring assistance completed. Patient admitted, IV remains in bp place. Administered Medications: 06:45 Drug: Lasix (furosemide) 40 mg Route: IVP; Site: right antecubital; aa9 07:53 Follow up: Response: No adverse reaction bp 07:45 Drug: Lasix (furosemide) 40 mg Route: IVP; Site: right antecubital; bp 11:41 Follow up: Response: No adverse reaction bp 07:45 Drug: ProTONIX (pantoprazole) 40 mg Route: IVP; Site: right antecubital; bp 11:41 Follow up: Response: No adverse reaction bp Medication: 05:48 VIS not applicable for this client. aa9 Outcome: 07:26 Decision to Hospitalize by Provider. laney 11:08 Patient left the ED. bp 11:40 Admitted to Med/surg accompanied by tech, via wheelchair, room 423, Report called to bp KATIE CHAVEZ 11:40 Condition: stable 11:40 Instructed on the need for admit. 12:08 Patient left the ED. bp Signatures: Dispatcher [employer] EDVidal Zaragoza MD MD cha Ballard, Brenda, RN RN Hiram Patel MD MD rn Peltier, Brian RN RN Kasia Hummel Aylin RN RN aa9
--- NOTE | 2022-10-08 07:36 | RAD REPORT ---
EXAM DESCRIPTION: CT - Thorax Wo Con - 10/08/2022 6:55 am CLINICAL HISTORY: sob COMPARISON: 2019 TECHNIQUE: Computed axial tomography of the chest was obtained. Contrast was not requested. All CT scans are performed using dose optimization technique as appropriate and may include automated exposure control or mA/KV adjustment according to patient size. FINDINGS: The evaluation of mediastinum, les and vessels is limited secondary to lack of IV contras t administration. Small bilateral pleural effusions with mild bibasilar atelectasis. No pericardial effusion. Cardiomegaly. No mediastinal or hilar lymphadenopathy is seen. IMPRESSION: Cardiomegaly with small bilateral pleural effusions
[2022-10-08] MEDS ORDERED: PANTOPRAZOLE 40 MG INJ ONE (07:43)
[2022-10-08] MEDS ORDERED: ACETAMINOPHEN 500 MG TAB PO PRN (10:02)
[2022-10-08] MEDS ORDERED: MAGNESIUM HYDROXIDE 8% 30 ML PO PRN (10:02)
[2022-10-08] MEDS ORDERED: ONDANSETRON 4 MG/2 ML VIAL IV PRN (10:02)
--- NOTE | 2022-10-08 11:55 | RAD REPORT ---
EXAM DESCRIPTION: US - Renal Ultrasound-Complete - 10/08/2022 10:24 am CLINICAL HISTORY: Acute renal insufficiency COMPARISON: 2019 FINDINGS: The right kidney measures 10 cm with a normal echotexture. The left kidney measures 10 cm with a normal echotexture. 2 centimeter cyst Hydronephrosis is not seen. No gross abnormality of bladder IMPRESSION: 2 centimeter left renal cyst
[2022-10-08] MEDS: FUROSEMIDE 40 MG/4 ML VIAL IV SCH (16:20)
--- NOTE | 2022-10-08 16:56 | RAD REPORT ---
EXAM DESCRIPTION: RAD - Chest Single View - 10/08/2022 5:43 am CLINICAL HISTORY: The patient is 72 years old and is Female; Cough TECHNIQUE: Single view of the chest. COMPARISON: No relevant prior studies available. FINDINGS: Lungs: Unremarkable. No pulmonary vascular congestion or consolidation. Pleural space: Unremarkable. No pneumothorax. Heart: Cardiomegaly. Mediastinum: Unremarkable. Bones/joints: Unremarkable. No acute fracture visualized. Upper abdomen: No free air in the visualized upper abdomen. IMPRESSION: 1. No acute cardiopulmonary process identified. 2. Cardiomegaly. Electronically signed by: Pia Weber MD 10/08/2022 5:56 AM SNUFF MAKER Due to temporary technical issues with the PACS/Fluency reporting system, reports are being signed by the in house radiologists without review as a courtesy to insure prompt reporting. The interpreting radiologist is fully responsible for the content of the report.
[2022-10-08 16:59] LABS: UR PROTEIN 91.6 mg/dL (<11.9); Urine Protein/Creatinine Ratio 3.66 ratio (<0.15)
--- NOTE | 2022-10-08 18:04 | CON ---
Date of Consultation: 10/08/2022 Reason For Consultation: Shortness of breath. History Of Present Illness: This is a 72-year-old female with a past medical history of congestive h eart failure, diabetes, dyslipidemia, hypertension, kidney failure, questionable history of coronary artery disease, presented with shortness of breath that is worsening over the past few days with mini mal activities and mild lower extremity edema. Denies having any chest pain. No nausea, vomiting, d iarrhea, or diaphoresis. No other complaints. Past Medical History: As outlined above in the HPI. Medications: Refer reconciliation sheet for detailed list. Allergies: NO KNOWN DRUG ALLERGIES. Family History: No premature coronary artery disease or cancer. Social History: She does not smoke or drink. Does not use any drugs. Review of Systems: All systems were reviewed and were negative except as mentioned in HPI. Physical Examination: Vital Signs: Reviewed. Head and Neck: Pupils are equal, reactive to light. Intact eye movements. No cervical lymphadenopa thy. Neck: Supple. Thyroid is not enlarged. Lungs: Clear to auscultation bilaterally. No rhonchi, wheezing, or crackles. No accessory muscle u se. Heart: Regular rate and rhythm. No extra sounds. Abdomen: Soft, nontender. Bowel sounds positive. No organomegaly. No masses or hernia. No rigidi ty or rebound. Extremities: Trace edema bilaterally. No clubbing, cyanosis. Intact pulses. Skin: No rash. Neurologic: Alert, awake, oriented x3. No acute focal deficits appreciated. Investigations: Creatinine is 3.58 and she has chronic kidney disease, goes back to 2018. The tropo frederick first set was 191 and then 206, and she does not have any chest pain. She had a CT scan of the c hest showed cardiomegaly with small bilateral pleural effusion. Assessment And Recommendations: 1.Acute on chronic diastolic heart failure exacerbation. Last echo in 2020 was with normal ejection fraction. Responded well to diuretics; however, dose might need to be adjusted. I recommend to inc rease to 80 mg twice a day and monitor BUN, creatinine, and electrolytes as the patient has significa nt kidney dysfunction. I recommend Nephrology evaluation as well. 2.Elevated troponin. There is no chest pain. Please obtain an echo. I placed the patient on baby aspirin 81 mg and get a blood pressure under control. 3.Hypertension. Blood pressure is elevated. After proper diuresis to reinstate home medications. Further recommendation to follow after the echocardiogram. SR/MODL Voice ID: [id number] Report ID: [id number]
[2022-10-08] MEDS: HEPARIN 5000 UNIT/ML 1 ML VIAL SQ SCH (21:09)
[2022-10-09] MEDS: HYDRALAZINE HCL 20 MG/ML VIAL IV PRN ×2 (01:16→20:41)
[2022-10-09 03:51] LABS: Absolute Lymphocytes (CBC) 1.4 K/uL (0.7-4.9); Hematocrit 23.8 % (36.0-45.0); Lymphocytes % 27.5 % (15.3-44.8); MCV 90.5 fL (80-100); MPV 7.6 fL (7.6-11.3); RBC Red Blood Cell Count 2.63 M/uL (3.86-4.86)
[2022-10-09 04:12] LABS: Albumin 3.1 g/dL (3.4-5.0); Bilirubin Total 0.3 mg/dL (0.2-1.0); Magnesium 2.4 mg/dL (1.6-2.4); Phosphorus 4.4 mg/dL (2.5-4.9); Potassium 3.8 mmol/L (3.5-5.1); Protein, Total 6.6 g/dL (6.4-8.2)
[2022-10-09] MEDS: METOPROLOL TAR 50 MG TAB PO SCH ×2 (05:21→15:57)
--- NOTE | 2022-10-09 07:41 | P.HP ---
Certification for Inpatient Patient admitted to: Inpatient With expected LOS: >2 Midnights Patient will require the following post-hospital care: None Practitioner: I am a practitioner with admitting privileges, knowledge of patient current condition, hospital course, and medical plan of care. Services: Services provided to patient in accordance with Admission requirements found in Title 42 Section 412.3 of the Code of Federal Regulations Patient History Date of Service: 10/08/22 Reason for admission: shortness of breath and acute kidney injury History of Present Illness: patient is a 72-year-old female who has a history of acute on chronic kidney disease who presents to the hospital with shortness of breath. Patient with worsening renal failure. Patient with shortness of breath. Patient with a history of diastolic heart failure. Will consult Cardiology and Nephrology and get their input regarding patient's care. She has RA feeling better in the emergency room. Patient will be admitted for inpatient hospitalization. Allergies carrot Allergy (Verified 08/21/18 12:31) Itching/Hives/Rash Home Medications: Glimepiride [Amaryl*] 2 mg PO DAILY 08/09/18 Amlodipine [Norvasc*] 10 mg PO DAILY 10/08/22 Furosemide [Lasix] 40 mg PO BID 10/08/22 Metoprolol Tartrate [Lopressor*] 50 mg PO BID 6AM 6PM 10/08/22 Spironolactone 25 mg PO DAILY 10/08/22 - Past Medical/Surgical History Has patient received pneumonia vaccine in the past: Yes Diabetic: Yes -: Hypertension -: Diabetes mellitus type 2 non-insulin dependent -: Hyperlipidemia -: CHF, diastolic dysfunction -: Obesity -: Cholecystectomy -: Appendectomy -: Hysterectomy Psychosocial/ Personal History: Patient is - Family History Father Medical History: Cancer, Liver disease Notes: Rectal cancer Mother Medical History: Heart disease, Stroke Sister Medical History: Cancer Notes: neck cancer Aunt Medical History: Cancer Notes: Ovarian - Social History Smoking Status: Former smoker Alcohol use: Yes CD- Drugs: No Caffeine use: Yes Place of Residence: Home Review of Systems 10-point ROS is otherwise unremarkable Physical Examination - Vital Signs Temperature: 98.1 F Blood Pressure: 163/70 Pulse: 54 Respirations: 18 Pulse Ox (%): 93 - Physical Exam General: Alert, In no apparent distress, Oriented x3 HEENT: Atraumatic, PERRLA, Mucous membr. moist/pink, EOMI, Sclerae nonicteric Neck: Supple, 2+ carotid pulse no bruit, No LAD, Without JVD or thyroid abnormality Respiratory: Diminished, Crackles/rales Cardiovascular: Regular rate/rhythm, Normal S1 S2, Systolic murmur Gastrointestinal: Normal bowel sounds, Soft and benign, Non-distended, W/out succussion splash, No tenderness Musculoskeletal: No clubbing, No swelling, No tenderness Integumentary: No rashes Neurological: Normal gait, Normal speech, Normal strength at 5/5 x4 extr, Normal tone, Normal affect Lymphatics: No axilla or inguinal lymphadenopathy Assessment & Plan - Problems (Diagnosis) (1) Acute kidney injury superimposed on chronic kidney disease Current Visit: Yes Status: Acute (2) Congestive heart failure, diastolic, left, w/preserved LV function, NYHA class 4 Onset Date: 08/22/18 Current Visit: No Status: Acute (3) Hypoalbuminemia Onset Date: 08/22/18 Current Visit: No Status: Acute (4) DM2 (diabetes mellitus, type 2) Onset Date: 08/22/18 Current Visit: No Status: Chronic Qualifiers: (5) HTN (hypertension) Onset Date: 08/22/18 Current Visit: No Status: Chronic - Plan 1. Echocardiogram 2. Continue with monitoring renal function 3. Nephrology consultation 4. Cardiology consultation 5. Aggressive diuresis 6. Strict I's and O's 7. Repeat CXR 8. Daily weights 9. Education regarding diet and treatment of congestive heart failure Discharge Plan: Home Plan to discharge in: Greater than 2 days - Advance Directives Does patient have a Living Will: No Does patient have a Durable POA for Healthcare: No - Code Status/Comfort Care Code Status Assessed: Yes Code Status: Full Code Critical Care: No Time Spent Managing PTS Care (In Minutes): 55
[2022-10-09] MEDS: AMLODIPINE 10 MG TAB PO SCH (07:58)
[2022-10-09] MEDS: FUROSEMIDE 40 MG/4 ML VIAL IV SCH ×2 (07:59→15:57)
[2022-10-09] MEDS: HEPARIN 5000 UNIT/ML 1 ML VIAL SQ SCH ×2 (07:59→20:40)
[2022-10-09] MEDS ORDERED: POTASSIUM 25 MEQ EFFERV TAB PO SCH (09:00)
--- NOTE | 2022-10-09 10:20 | P.CNS ---
Date of Consult: 10/09/22 Reason for Consult: Renal failure, dyspnea Requesting Physician: Kerrie Bliss Chief Complaint: shortness of breath and acute kidney injury History of Present Illness: Pt is an elderly female with hx of NIDDM with diabetic nephropathy, advanced CKD with proteinuria for several years under the care of Dr. Rutherford and last saw him in Aug at the [facility]. Pt reports shortness of breath episodes and some PND over the past few weeks. She claims she was admitted here recently but I don't see records of that unless visit was under a different name or MRN. Pt reports compliance with meds. Denies any CP, denies any hx of CAD, prior echo in this system from 2019 noted. She is lasix diuretics at home and reports urinating often. 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 Allergies carrot Allergy (Verified 08/21/18 12:31) Itching/Hives/Rash Home Medications: Glimepiride [Amaryl*] 2 mg PO DAILY 08/09/18 Amlodipine [Norvasc*] 10 mg PO DAILY 10/08/22 Furosemide [Lasix] 40 mg PO BID 10/08/22 Metoprolol Tartrate [Lopressor*] 50 mg PO BID 6AM 6PM 10/08/22 Spironolactone 25 mg PO DAILY 10/08/22 - Past Medical/Surgical History Diabetic: Yes -: Hypertension -: Diabetes mellitus type 2 non-insulin dependent -: Hyperlipidemia -: CHF, diastolic dysfunction -: Obesity -: Advanced CKD followed by Dr. Rutherford -: Cholecystectomy -: Appendectomy -: Hysterectomy Psychosocial/ Personal History: Patient is - Family History Father Medical History: Cancer, Liver disease Notes: Rectal cancer Mother Medical History: Heart disease, Stroke Sister Medical History: Cancer Notes: neck cancer Aunt Medical History: Cancer Notes: Ovarian - Social History Smoking Status: Unknown if ever smoked Alcohol use: Yes CD- Drugs: No Caffeine use: Yes Place of Residence: Home Review of Systems General: Weakness Eyes: Unremarkable ENT: Unremarkable Respiratory: Shortness of Breath, As per HPI Cardiovascular: Paroxysmal Noc. Dyspnea, As per HPI Gastrointestinal: Unremarkable Genitourinary: Unremarkable Musculoskeletal: Unremarkable Integumentary: Unremarkable Neurological: Unremarkable Lymphatics: Unremarkable Physical Examination Temp Pulse Resp BP Pulse Ox 98.1 F 54 18 163/70 H 93 10/09/22 07:40 10/09/22 07:59 10/09/22 07:40 10/09/22 07:59 10/09/22 07:40 General: In no apparent distress, Oriented x3 HEENT: Atraumatic, Normocephalic, PERRLA Neck: Supple Respiratory: Normal air movement, Other (No rales on anterior auscultation ) Cardiovascular: No edema, Regular rate/rhythm, Normal S1 S2 Gastrointestinal: Soft and benign, Non-distended, No tenderness Musculoskeletal: No clubbing, No swelling, No contractures Integumentary: No rashes, No breakdown Neurological: Normal speech Conclusions/Impression: A/P) 1. Possible sub acute Stage II YOGESH vs progressive CKD 2. Underlying CKD IV 2nd to diabetic nephropathy 3. Hypertensive heart and kidney disease 4. NSTEMI 5. Acute on chronic diastolic CHF 6. Azotemia 7. Hyperchloremic metab acidosis 8. Anemia 2nd to CKD, other -Renal function worse c/w levels in early 2021 but labs on admission c/w labs noted in clinic on Aug visit with Dr. Rutherford, unclear if they represent progressive CKD in the setting of likely diabetic nephropathy with significant proteinuria or some sub acute YOGESH 2nd to ATN or other as automated UA in Aug reported granular casts then and heavy proteinuria can cause tubular injury. -No emergent indication for [employer] yet but pt is at risk for it it in the near term future, unclear if any pre dialysis planning has been pursued, pt does not have a maturing access. Will discuss further with pt. -Agree with IV lasix diuresis. -Pt needs updated echo, will f/u Cardiology reccs. Pt at high risk for ANTONIA/dialysis dependent renal failure currently. -Hold SUSY inhibitors and aldosterone antagonists currently due to low GFR state and to avoid any confounding physiologic effects on GFR -Monitor lytes -Target BP < 130/80, cont CCB and beta blockers. -Trend H/H, will employ RICO therapy if Hb remains < 10 and T sat > 20% Thank you for this referral, Armand Geiger MD, REECE
--- NOTE | 2022-10-09 10:51 | EKG ---
Test Date: 2022-10-08 Test Time: 05:43:13 [facility]: NATALYA MEASUREMENT RESULTS: Intervals: Rate: 55 OK: QRSD: 90 QT: 488 QTc: 466 Skippers: P: OK: QRS: -12 T: 117 INTERPRETIVE STATEMENTS: Junctional rhythm Septal infarct, age undetermined ST & T wave abnormality, consider lateral ischemia Abnormal ECG Compared to ECG 11/22/2019 10:17:48 Junctional rhythm now present Myocardial infarct finding now present Possible ischemia now present Sinus rhythm no longer present ST (T wave) deviation still present Electronically Signed On 10-09-22 10:46:55 [employer] by Fred Du
--- NOTE | 2022-10-09 13:12 | ECHO ---
HEIGHT: 5 ft 1 in WEIGHT: 158 lb 0 oz DATE OF STUDY: 10/09/[address]: Kerrie Bliss MD 2-DIMENSIONAL: YES M.MODE: YES DOPPLER: YES COLOR FLOW: YES TDS: NO PORTABLE: YES DEFINITY: NO BUBBLE STUDY: NO DIAGNOSIS: CONGESTIVE HEART FAILURE CARDIAC HISTORY: CATHERIZATION: NO SURGERY: NO PROSTHETIC VALVE: NO PACEMAKER: NO MEASUREMENTS (cm) DIASTOLIC (NORMALS) SYSTOLIC (NORMALS) IVSd 1.1 (0.6-1.2) LA Diam 4.0 (1.9-4.0) LVEF 62% LVIDd 5.8 (3.5-5.7) LVIDs 3.8 (2.0-3.5) %FS 34% LVPWd 1.1 (0.6-1.2) Ao Diam 2.6 (2.0-3.7) 2 DIMENSIONAL ASSESSMENT: RIGHT ATRIUM: NORMAL LEFT ATRIUM: NORMAL RIGHT VENTRICLE: NORMAL LEFT VENTRICLE: NORMAL TRICUSPID VALVE: NORMAL MITRAL VALVE: MITRAL ANNULAR CALCIFICATION PULMONIC VALVE: NORMAL AORTIC VALVE: SCLEROSIS PERICARDIAL EFFUSION: NONE AORTIC ROOT: NORMAL LEFT VENTRICULAR WALL MOTION: DECREASED LEFT VENTRICULAR COMPLIANCE. DOPPLER/COLOR FLOW: MILD TRICUSPID REGURGITATION - NORMAL RIGHT VENTRICULAR SYSTOLIC PRESSURE. COMMENTS: MILD TRICUSPID REGURGITATION - NORMAL RIGHT VENTRICULAR SYSTOLIC PRESSURE. MITRAL ANNULAR CALCIFICATION. AORTIC SCLEROSIS DIASTOLIC DYSFUNCTION - NORMAL EJECTION FRACTION. TECHNOLOGIST: MAYTE OLIVARES
[2022-10-09 21:10] LABS: Specific Gravity 1.009 (1.005-1.030); Urine Bacteria <20 /HPF (<20); Urine Bilirubin NEGATIVE (Negative); Urine Blood Negative (Negative); Urine Clarity Clear (Clear); Urine Color Colorless (Yellow); Urine Glucose TRACE (Negative); Urine Mucus Slight /HPF (None Seen); Urine Protein 2+ (Negative); Urine RBC <5 /HPF (None Seen); Urine Urobilinogen Normal (Normal)
[2022-10-10 00:38] VITALS: O2SAT 94
[2022-10-10 03:23] LABS: Absolute Lymphocytes (CBC) 1.4 K/uL (0.7-4.9); Hematocrit 25.7 % (36.0-45.0); Lymphocytes % 26.7 % (15.3-44.8); MCV 91.1 fL (80-100); MPV 7.1 fL (7.6-11.3); RBC Red Blood Cell Count 2.82 M/uL (3.86-4.86)
[2022-10-10 03:41] LABS: Albumin 3.1 g/dL (3.4-5.0); Phosphorus 3.9 mg/dL (2.5-4.9); Potassium 4.2 mmol/L (3.5-5.1)
[2022-10-10 04:06] LABS: Albumin 3.1 g/dL (3.4-5.0); Bilirubin Total 0.4 mg/dL (0.2-1.0); Magnesium 2.2 mg/dL (1.6-2.4); Potassium 4.2 mmol/L (3.5-5.1); Protein, Total 6.6 g/dL (6.4-8.2); Thyroid Stimulating Hormone 1.15 uIU/mL (0.358-3.740)
[2022-10-10 04:15] LABS: Troponin High Sensitivity 176.5 pg/mL (<58.9)
[2022-10-10] MEDS: METOPROLOL TAR 50 MG TAB PO SCH (05:16)
[2022-10-10 06:33] VITALS: BMI 28.5
--- NOTE | 2022-10-10 07:11 | RAD REPORT ---
EXAM DESCRIPTION: RAD - Chest Single View - 10/10/2022 6:43 am CLINICAL HISTORY: pneumonia COMPARISON: Chest Single View dated 10/08/2022; Chest Pa And Lat (2 Views) dated 11/23/2019; Chest Sin gle View dated 11/22/2019; Chest Single View dated 08/19/2018; Thorax Wo Con dated 10/08/2022 FINDINGS: Lines: None. Lungs: No evidence of edema or pneumonia. Pleural: No significant pleural effusions or pneumothorax. Cardiac: Cardiomegaly. Mediastinum: Within normal limits. Bones: No acute fractures. Other: None IMPRESSION: No acute cardiopulmonary disease.
[2022-10-10] MEDS ORDERED: VITAMIN D 1000 UNIT TAB PO SCH (09:00)
[2022-10-10] MEDS: AMLODIPINE 10 MG TAB PO SCH (09:52)
[2022-10-10] MEDS: HEPARIN 5000 UNIT/ML 1 ML VIAL SQ SCH (09:53)
[2022-10-10] MEDS: FUROSEMIDE 40 MG/4 ML VIAL IV SCH (09:53)
[2022-10-10] MEDS ORDERED: FUROSEMIDE 40 MG/4 ML VIAL IV ONE (11:41)
[2022-10-10] MEDS ORDERED: DRISDOL (VITAMIN D=ERGOCALCIFEROL) 50000 UNIT CAP PO ONE (11:42)
[2022-10-10 12:14] VITALS: BP 162/74; TEMP 98.2
--- NOTE | 2022-10-10 16:59 | PN ---
Subjective: The patient is seen at [facility] in [place]. The patient is seen in room 423. The patient is alert, awake and comfortable. States she is b reathing a whole lot better. She does have some trace edema still, but is able to get up and get to the bathroom. She is also able to talk comfortably. She states that she lives with [facility] at [facility]. States that she feels comfortable going home. Denies any new complaints today. She does follow with Dr. Rutherford in clinic and understands to make an appointment within a we ek to follow up. She has been taking Lasix at home, has been what she thinks to be about 40 mg, but once a day. Objective: Vital Signs: Her vitals are relatively stable with blood pressure slightly on the higher side with blood pressures running 159/86, before that 140/64, pulse is stable between 50 and 60 and regular, respirations are around 14 and comfortable, O2 sats are 94% on room air. Lungs: Clear anteriorly with decreased breath sounds at the very bases. Abdomen: Soft. Extremities: Revealed trace edema. Heart: Sounds are regular. Laboratory Data: Reviewed. Lab shows a WBC count of 5.4, hemoglobin 8.9, hematocrit 25.7, platelet count of 206. Chemistry shows sodium 138, potassium 4.2, chloride 109, bicarb is 21, BUN is 58, crea tinine is 3.543 yesterday was 59 and 3.39, before that was 52 and 3.36. Calcium is at 8.4. HGB A1c was at 5.1. TSH level at 1.150, free T4 was 1. Cortisol level was 10.14, albumin was 3.1, calcium c orrected for low albumin is in reasonable range. Phosphorus at about 3.9 yesterday. Magnesium was 2 .4 on October 09Wednesday. Assessment/plan: The patient with advanced chronic kidney disease. Will likely need dialysis in fut ure. The patient advised about her options with dialysis. Also advised about following up with Dr. Rutherford and keeping her appointment. Continuing to take Lasix at home. We would recommend starting her at about 40 mg twice a day to continue. The patient thinks she was taking once a day, even thoug h her home medication list is stated to be twice a day. The patient has slightly elevated blood pres sure. Some trace edema, but overall seems to have significantly improved with her breathing and volu me status, seems to be stable for outpatient followup and discharge today if the hospitalist team als o agrees. If discharged, we would recommend follow up with Dr. Rutherford within a week. Continue home medications with Lasix at 40 mg p.o. b.i.d. Monitor blood pressure at home and keep record. Bring all her medications to the appointment with Dr. Rutherford. The patient is briefly educated about dialy sis options. We will discuss with Dr. Rutherford to also get the kidney smart education done, so the pa keren can be further educated about her dialysis options. She seems to be reasonable candidate for p eritoneal dialysis assuming she has a place to put equipment and stable home condition to be able to host a machine. We will give her dose of Lasix 40 mg IV in addition to the 40 b.i.d. she is taking i n the hospital before discharge. Also, we will give her dose of ergocalciferol given her slightly lo w calcium. /SHAYLEEL Voice ID: [id number] Report ID: [id number]
--- NOTE | 2022-10-11 19:02 | PN ---
The patient has been followed by Dr. Musa for congestive heart failure. She came in with CHF. She has a history of diabetes, dyslipidemia, chronic renal disease, and questionable history of coronary artery disease. Echocardiogram shows normal ejection fraction with diastolic dysfunction. Her crea tinine is 3.43. She is definitely not a candidate for coronary angiography. Hemoglobin is 8.9. Her troponin is down to 126. This is probably secondary to CHF. She is on Norvasc, Lasix, hydralazine, metoprolol. Nephrology is following. We agree with her present regimen. She can go home whenever it is okay with Nephrology. We will see her as an outpatient. SHAN/MILLY Voice ID: [id number] Report ID: [id number]
== END 2022-10-10 16:19 | disposition home or self-care (01) | DRG 280 ==
LOC: ER 05:08 → ERHOLD 10:02 → 4TH 11:36
PROVIDERS: ADMIT Hospitalist; ATTEND Hospitalist
DX: I13.0 Hypertensive heart and chronic kidney disease with heart failure and stage 1 through stage 4 chronic kidney disease, or unspecified chronic kidney disease (principal); I21.4 Non-ST elevation (NSTEMI) myocardial infarction; I50.33 Acute on chronic diastolic (congestive) heart failure; N17.9 Acute kidney failure, unspecified; E87.20 Acidosis, unspecified; N18.4 Chronic kidney disease, stage 4 (severe); E11.22 Type 2 diabetes mellitus with diabetic chronic kidney disease; E11.65 Type 2 diabetes mellitus with hyperglycemia; D63.1 Anemia in chronic kidney disease; E88.09 Other disorders of plasma-protein metabolism, not elsewhere classified; E78.5 Hyperlipidemia, unspecified; I25.10 Atherosclerotic heart disease of native coronary artery without angina pectoris; Z79.84 Long term (current) use of oral hypoglycemic drugs; Z90.49 Acquired absence of other specified parts of digestive tract; Z79.899 Other long term (current) drug therapy; Z91.018 Allergy to other foods; Z28.311 Partially vaccinated for COVID-19; Z90.710 Acquired absence of both cervix and uterus; Z87.891 Personal history of nicotine dependence; Z20.822 Contact with and (suspected) exposure to COVID-19
CPT/HCPCS: 0240U; 36415; 71045; 71250; 76770; 80048; 80053; 80069; 80076; 81001; 82533; 82570; 82607; 82747; 82947; 83036; 83540; 83735; 83880; 84100; 84156; 84439; 84443; 84484; 85025; 85610; 85730; 86850; 86900; 86901; 87040; 93005; 93306; 96374; 96375; 99285; C9113; J0360; J1644; J1940